=== PATIENT | female | born 1995 | race Caucasian/White ===

== ENCOUNTER 2018-09-11 10:02 | Emergency (ER) | payer OTHER ==
[~2018-09-11] VITALS: Ht 170.2 cm; Wt 81.6 kg
--- OUTSIDE RECORDS SUMMARY | 2018-09-11 10:08 | XMS REPORT ---
Author Author Jessica Chakraborty [facility] Address [address], [place] [id number] Care Team Providers Care Harbor Tug Captain Name Role Phone Jessica Chakraborty PCP Allergies and Adverse Reactions Name Reaction Notes Zithromax hives Plan of Treatment Not available. Medications Active Name Start Date Estimated Completion Date SIG Comments Forfivo XL 450 mg oral tablet extended release 24 hr 04/08/2016 TAKE 1 TABLET BY MOUTH DAILY Forfivo XL 450 mg oral tablet extended release 24 hr 09/21/2016 TAKE 1 TABLET BY MOUTH DAILY lamotrigine 100 mg oral tablet 10/15/2016 TAKE 1 TABLET BY ORAL ROUTE DAILY FOR 90 DAYS Previfem 0.25-35 mg-mcg oral tablet 12/03/2017 TAKE 1 TABLET BY MOUTH DAILY for 84 days fluoxetine 60 mg oral tablet take 1 tablet (60 mg) by oral route once daily in the morning Name Start Date Expiration Date SIG Comments Zofran ODT 4 mg oral tablet,disintegrating 02/06/2013 dissolve 1-2 tablets by oral route 3 times a day as needed amoxicillin 875 mg oral tablet 01/25/2015 02/04/2015 take 1 tablet (875 mg) by oral route every 12 hours for 10 days Macrobid 100 mg oral capsule 06/24/2015 07/01/2015 take 1 capsule (100 mg) by oral route 2 times per day with food for 7 days Forfivo XL 450 mg oral tablet extended release 24 hr 10/15/2015 04/12/2016 take 1 tablet (450 mg) by oral route once daily swallowing whole. Do not crush, chew and/or divide. for 90 days lamotrigine 25 mg oral tablet 11/06/2015 01/05/2016 take 3 tablets by oral route daily for 30 days sertraline 100 mg oral tablet 12/02/2015 05/30/2016 take 2 tablets by oral route daily for 90 days lamotrigine 100 mg oral tablet 04/10/2016 07/09/2016 TAKE 1 TABLET BY ORAL ROUTE DAILY FOR 90 DAYS for 90 days Discontinued Name Start Date Discontinued Date SIG Comments Lessina 0.1-20 mg-mcg oral tablet 06/24/2015 take 1 tablet by oral route once daily bupropion HCl 300 mg oral tablet extended release 24 hr 06/24/2015 take 1 tablet by oral route daily fluticasone 50 mcg/actuation nasal spray,suspension 01/25/2015 06/24/2015 inhale 1 spray (50 mcg) in each nostril by intranasal route 2 times per day Diflucan 150 mg oral tablet 02/06/2015 06/24/2015 take 1 tablet (150 mg) by oral route once cyclobenzaprine 10 mg oral tablet 08/12/2015 08/26/2015 take 1 tablet by oral route once a day (at bedtime) pt decicded to stop taking Anaprox DS 550 mg oral tablet 08/12/2015 08/26/2015 take 1 tablet (550 mg) by oral route 2 times per day in the morning and evening with food pt decided to stop taking omeprazole 40 mg oral capsule,delayed release(DR/EC) 04/30/2016 05/15/2016 take 1 capsule (40 mg) by oral route once daily before a meal "forgot to try" omeprazole 40 mg oral capsule,delayed release(DR/EC) 05/25/2016 09/08/2016 TAKE 1 CAPSULE EVERY DAY BEFORE A MEAL sertraline 100 mg oral tablet 06/22/2016 07/22/2018 TAKE 2 TABLETS BY ORAL ROUTE DAILY FOR 90 DAYS lamotrigine 25 mg oral tablet 10/15/2016 07/22/2018 TAKE THREE(3)TABLETS EVERY DAY Diflucan 150 mg oral tablet 01/27/2017 12/03/2017 take 1 tablet (150 mg) by oral route once Problem List Description Status Onset Depression Active Migraine Active Chronic tension-type headache, not intractable Active 05/15/2016 Myofascial pain Active 05/28/2016 Vital Signs Date Time BP-Sys(mm[Hg] BP-Luba(mm[Hg]) HR(bpm) RR(rpm) Temp WT HT HC BMI BSA BMI Percentile O2 Sat(%) 07/22/2018 10:40:00 AM 143 mmHg 92 mmHg 76 bpm 98.2 F 179.25 lbs 69 in 26.4703 kg/m 1.9895 m 12/03/2017 11:08:00 AM 129 mmHg 82 mmHg 81 bpm 98.6 F 166 lbs 69 in 24.51 kg/m2 1.91 m2 10/13/2016 3:54:00 PM 136 mmHg 89 mmHg 103 bpm 19 rpm 98.2 F 148.025 lbs 69 in 21.8592 kg/m 1.808 m 51.9 % 99 % 09/08/2016 4:56:00 PM 118 mmHg 78 mmHg 81 bpm 20 rpm 97.8 F 147 lbs 69 in 21.71 kg/m2 1.80 m2 50.3 % 98 % 05/27/2016 4:25:00 PM 102 mmHg 58 mmHg 107 bpm 14 rpm 98.1 F 147.5 lbs 69 in 21.7817 kg/m 1.8048 m 51.8 % 97 % 05/15/2016 10:53:00 AM 110 mmHg 60 mmHg 91 bpm 20 rpm 97.3 F 147.5 lbs 69 in 21.78 kg/m2 1.80 m2 51.9 % 98 % 04/30/2016 1:09:00 PM 102 mmHg 58 mmHg 89 bpm 12 rpm 97 F 149 lbs 69 in 22.0032 kg/m 1.8139 m 54.6 % 99 % 11/06/2015 5:25:00 PM 112 mmHg 68 mmHg 81 bpm 14 rpm 98.1 F 145 lbs 69 in 21.41 kg/m2 1.79 m2 48.7 % 99 % 10/23/2015 4:33:00 PM 120 mmHg 84 mmHg 108 bpm 18 rpm 98.1 F 143 lbs 68.5 in 21.4266 kg/m 1.7706 m 49 % 98 % 08/26/2015 4:34:00 PM 110 mmHg 70 mmHg 93 bpm 16 rpm 97.7 F 142 lbs 68.5 in 21.28 kg/m2 1.76 m2 47.6 % 98 % 08/12/2015 3:05:00 PM 116 mmHg 68 mmHg 105 bpm 20 rpm 98.5 F 144 lbs 100 % 08/09/2015 3:15:00 PM 115 mmHg 70 mmHg 84 bpm 18 rpm 98.2 F 140 lbs 67 in 21.93 kg/m2 1.73 m2 55.7 % 99 % 07/10/2015 2:37:00 PM 132 mmHg 70 mmHg 78 bpm 16 rpm 97.1 F 143 lbs 66 in 23.0806 kg/m 1.738 m 67.7 % 100 % 06/24/2015 4:11:00 PM 137 mmHg 86 mmHg 88 bpm 18 rpm 98.4 F 143 lbs 71 in 19.94 kg/m2 1.80 m2 29.9 % 01/25/2015 9:04:00 AM 102 mmHg 60 mmHg 79 bpm 18 rpm 97.9 F 149 lbs 71 in 20.7811 kg/m 1.84 m 43.2 % 99 % 02/06/2013 2:10:00 PM 116 mmHg 78 mmHg 134 bpm 18 rpm 98.4 F 149 lbs 71 in 20.78 kg/m2 1.84 m2 53.6 % 98 % 03/24/2011 11:07:00 AM 118 mmHg 62 mmHg 76 bpm 22 rpm 97.8 F 143 lbs 67 in 22.3967 kg/m 1.7511 m 78.9 % 98 % Social History Name Description Comments Student (High school ) Tobacco Never smoker History of Procedures Date Ordered Description Order Status 07/10/2015 12:00 AM Mental Health Consult Reviewed 08/09/2015 12:00 AM METABOLIC PANEL TOTAL CA Reviewed 08/15/2015 12:00 AM ROUTINE VENIPUNCTURE Reviewed 10/23/2015 12:00 AM AMINO ACIDS SINGLE QUANT Reviewed 10/23/2015 12:00 AM COMPLETE CBC W/AUTO DIFF WBC Reviewed 10/23/2015 12:00 AM VITAMIN D 25 HYDROXY Reviewed 05/15/2016 12:00 AM COMPLETE CBC W/AUTO DIFF WBC Reviewed 05/15/2016 12:00 AM COMPREHEN METABOLIC PANEL Reviewed 05/15/2016 12:00 AM ECHO EXAM OF ABDOMEN Reviewed 05/28/2016 12:00 AM HEPATOBILIARY SYSTEM IMAGING Reviewed 10/13/2016 12:00 AM SPECIMEN HANDLING OFFICE-LAB Reviewed 10/13/2016 12:00 AM CHLAMYDIA CULTURE Reviewed 10/13/2016 12:00 AM N.GONORRHOEAE DNA AMP PROB Reviewed 12/03/2017 12:00 AM SPECIMEN HANDLING OFFICE-LAB Reviewed 12/03/2017 12:00 AM CHLAMYDIA CULTURE Reviewed 12/03/2017 12:00 AM N.GONORRHOEAE DNA AMP PROB Reviewed 12/03/2017 12:00 AM DETECT AGENT NOS DNA AMP Reviewed 12/03/2017 12:00 AM TRICHOMONAS VAGINALIS AMPLIF Reviewed 09/29/2010 12:00 AM IMMUNIZATION ADMIN Reviewed 09/29/2010 12:00 AM FLU VACCINE 3 YRS & > IM Reviewed 04/11/2015 12:00 AM IMMUNIZATION ADMIN Reviewed 04/11/2015 12:00 AM HPV VACCINE 4 VALENT IM Reviewed 06/24/2015 5:12 PM URINE TEST Reviewed 06/24/2015 12:00 AM SPECIMEN HANDLING OFFICE-LAB Reviewed 06/24/2015 12:00 AM CHLAMYDIA CULTURE Reviewed 06/24/2015 12:00 AM N.GONORRHOEAE DNA AMP PROB Reviewed 06/24/2015 12:00 AM TRICHOMONAS ASSAY W/OPTIC Reviewed Results Summary Date and Description Results 06/24/2015 5:12 PM Test, Urine Negative 08/15/2015 2:43 PM GLUCOSE 87.0 mg/dLSODIUM 139.0 mmol/LPOTASSIUM 4.20 mmol/ LCHLORIDE 104.0 mmol/LCO2 24.0 mmol/LBUN 13.0 mg/dLCREATININE 1.0 mg/dLSGOT/AST 19.0 IU/LSGPT/ALT 14.0 IU/LALK PHOS 68.0 IU/LTOTAL PROTEIN 6.80 g/dLALBUMIN 4.10 g/dLTOTAL BILI 0.40 mg/dLCALCIUM 9.90 mg/dLAGE 19 GFR NonAA 72 GFR AA 87 eGFR >60 mL/min/1.73meGFR AA* >60 10/23/2015 6:42 PM WBC 8.3 RBC 4.79 HGB 14.70 g/dLHCT 43.30 %MCV 90.0 fLMCH 30.70 pgMCHC 33.90 g/dLRDW SD 41 RDW CV 12.30 %MPV 9.60 fLPLT 309 NRBC# 0.00 NRBC% 0.0 %NEUT 61.80 %%LYMP 27.50 %%MONO 10.10 %%EOS 0.40 %%BASO 0.20 %#NEUT 5.16 #LYMP 2.29 #MONO 0.84 #EOS 0.03 #BASO 0.02 MANUAL DIFF NOT IND TSH 1.550 uIU/mLVITAMIN D 58.80 ng/mL 05/15/2016 2:22 PM GLUCOSE 79.0 mg/dLSODIUM 135.0 mmol/LPOTASSIUM 4.60 mmol/ LCHLORIDE 103.0 mmol/LCO2 20.0 mmol/LBUN 16.0 mg/dLCREATININE 0.90 mg/dLSGOT/ AST 34.0 IU/LSGPT/ALT 33.0 IU/LALK PHOS 86.0 IU/LTOTAL PROTEIN 7.20 g/dLALBUMIN 4.30 g/dLTOTAL BILI 0.50 mg/dLCALCIUM 9.60 mg/dLAGE 20 GFR NonAA 81 GFR AA 98 eGFR >60 mL/min/1.73meGFR AA* >60 WBC 7.5 RBC 4.85 HGB 14.50 g/dLHCT 43.40 % MCV 90.0 fLMCH 29.90 pgMCHC 33.40 g/dLRDW SD 41 RDW CV 12.60 %MPV 9.20 fLPLT 290 NRBC# 0.00 NRBC% 0.0 %NEUT 62.40 %%LYMP 24.90 %%MONO 10.50 %%EOS 1.30 %% BASO 0.80 %#NEUT 4.65 #LYMP 1.86 #MONO 0.78 #EOS 0.10 #BASO 0.06 MANUAL DIFF NOT IND History Of Immunizations Name Date Admin Mfg Name Mfg Code Trade Name Lot# Route Inj Vis Given Vis Pub CVX HPV 04/11/2015 [employer] MSD GARDASIL [id number] Intramuscular Left Deltoid 04/12/2015 03/10/2013 63 History of Past Illness Name Date of Onset Comments Depression Migraine Flu Sep 29 2010 5:16PM Chronic tension-type headache, not intractable 05/15/2016 Stretching,heat and massageNTB, avoid gum chewing, hard candy for the TMJReturn for TPIsShe may benefit from ADDISON block in the future. Myofascial pain 05/28/2016 Sports Physical Mar 24 2011 11:13AM Gastroenteritis Feb 06 2013 2:15PM Depression Jan 25 2015 9:10AM Migraine Jan 25 2015 9:10AM Upper respiratory infection Jan 25 2015 9:10AM Gardsil (HPV) Apr 11 2015 1:10PM Routine gynecological examination Jun 24 2015 4:16PM Contraception, Oral Prescription Jun 24 2015 4:16PM Contraception, Surveillance Jun 24 2015 4:16PM Vaginal Discharge Jun 24 2015 4:16PM Dysuria Jun 24 2015 4:16PM Depression Jul 10 2015 2:39PM Depression Aug 09 2015 3:21PM Left TMJ inflammation Aug 12 2015 3:07PM Adolescent depression Aug 15 2015 10:50AM Depressive Disorder Worsening Aug 26 2015 4:38PM Chronic fatigue Oct 23 2015 4:36PM Depression Oct 23 2015 4:36PM Reflux gastritis Oct 23 2015 4:36PM Chronic Depressive Disorder Nov 06 2015 5:29PM Chronic fatigue Nov 06 2015 5:29PM Generalized abdominal pain Apr 30 2016 1:11PM Generalized abdominal pain May 15 2016 10:55AM Chronic tension-type headache, not intractable May 15 2016 10:55AM Myofascial pain May 27 2016 4:24PM Abdominal pain, unspecified abdominal location May 28 2016 11:43AM Severe episode of recurrent major depressive disorder, without psychotic features Sep 08 2016 4:58PM Routine gynecological examination Oct 13 2016 3:56PM Contraceptive surveillance Oct 13 2016 3:56PM Routine gynecological examination Dec 03 2017 11:11AM Contraceptive management Dec 03 2017 11:11AM Contraceptive education Jul 22 2018 10:41AM Payers Insurance Name Company Name Plan Name Plan Number Policy Number Policy Group Number Start Date Aetna Aetna [id number] Friday, 2015 [facility] [id number] [facility] void October2008 [facility] [id number] [facility] void October2008 [facility] [id number] [facility] void Wednesday, 2010 History of Encounters Visit Date Visit Type Provider 07/22/2018 Office visit Jessica Chakraborty GSA COORDINATOR 12/03/2017 Office visit Jessica Chakraborty GSA COORDINATOR 10/13/2016 Office visit Jessica Chakraborty GSA COORDINATOR 09/08/[address] Douglas Huang MD 05/27/2016 Office visit Rupal SHOOK 05/15/2016 Office visit Rupal SHOOK 04/30/2016 Office visit Rupal SHOOK 11/06/[address] Douglas Huang MD 10/23/[address] Douglas Huang MD 08/26/[address] Douglas Huang MD 08/15/2015 Laboratory FIDEL TURNER GSA COORDINATOR 08/12/2015 Office visit FIDEL TURNER GSA COORDINATOR 08/09/[address] Douglas Huang MD 08/09/[address] Douglas Huang MD 07/10/2015 Office visit FIDEL TURNER GSA COORDINATOR 06/24/2015 Office visit 06/24/2015 Office visit Jessica Chakraborty GSA COORDINATOR 04/11/2015 Nurse visit FIDEL TURNER GSA COORDINATOR 01/25/2015 Office visit FIDEL TURNER GSA COORDINATOR 02/06/2013 Office visit FIDEL TURNER GSA COORDINATOR 03/24/2011 Office visit Fidel Turner GSA COORDINATOR 09/29/2010 Nurse visit Fidel Turner GSA COORDINATOR 08/20/2009 Office visit Fidel Turner GSA COORDINATOR
--- OUTSIDE RECORDS SUMMARY | 2018-09-11 10:08 | XMS REPORT ---
Author Author Jessica Chakraborty [facility] Address [address] [place], [place] [id number] Care Team Providers Care Wildfire Prevention Specialist Name Role Phone Jessica Chakraborty PCP Allergies [...] 04/11/2015 [employer] MSD GARDASIL [id number] Intramuscular Left Deltoid 04/12/2015 03/10/2013 63 History [...] Policy Group Number Start Date Aetna Aetna [id number] Friday, 2015 [place] [address] [place] void October2008 [place] [id number] [place] void October2008 [place] [address] [place] void Wednesday, 2010 History of Encounters Visit Date Visit Type Provider 07/22/2018 Office visit Jessica Chakraborty [facility] 12/03/2017 Office visit Jesscia Chakraborty [facility] 10/13/2016 Office visit Jessica Chakraborty [facility] 09/08/[address] Douglas Huang MD 05/27/2016 Office visit Rupal SHOOK 05/15/2016 Office visit Rupal SHOOK 04/30/2016 Office visit Rupal SHOOK 11/06/[address] Douglas Huang MD 10/23/[address] Douglas Huang MD 08/26/[address] Douglas Huang MD 08/15/2015 Laboratory FIDEL TURNER [facility] 08/12/2015 Office visit FIDEL TURNER [facility] 08/09/[address] Douglas Huang MD 08/09/[address] Douglas Huang MD 07/10/2015 Office visit FIDEL TURNER [facility] 06/24/2015 Office visit 06/24/2015 Office visit Jessica Chakraborty [facility] 04/11/2015 Nurse visit FIDEL TURNER [facility] 01/25/2015 Office visit FIDEL TURNER [facility] 02/06/2013 Office visit FIDEL TURNER [facility] 03/24/2011 Office visit Fidel Turner [facility] 09/29/2010 Nurse visit Fidel Turner [facility] 08/20/2009 Office visit Fidel Turner [facility]
--- OUTSIDE RECORDS SUMMARY | 2018-09-11 10:09 | XMS REPORT ---
Author Douglas Gloria [facility] Address [address] [place], [place] [id number] Care Team Providers Care Functional Mental Disability Teacher Name Role Phone Douglas Huang PCP Allergies and Adverse Reactions Name Reaction Notes Zithromax hives Plan of Treatment Planned Activity Comments Planned Date Planned Time Plan/Goal METABOLIC PANEL TOTAL CA 08/09/2015 12:00 AM Medications Active Name Start Date Estimated Completion Date SIG Comments Previfem 0.25-35 mg-mcg oral tablet 06/24/2015 05/25/2016 take 1 tablet by oral route once daily for 28 days Forfivo XL 450 mg oral tablet extended release 24 hr 07/11/2015 take 1 tablet (450 mg) by oral route once daily swallowing whole. Do not crush, chew and/or divide. lamotrigine 100 mg oral tablet 07/11/2015 take 1 tablet by oral route daily sertraline 100 mg oral tablet 08/09/2015 11/07/2015 take 1.5 tablets (150 mg ) by oral route once daily for 90 days Name Start Date Expiration Date SIG Comments [...] per day with food for 7 days Discontinued Name Start Date Discontinued Date [...] Description Status Onset Depression Active Migraine Active Vital Signs Date Time BP-Sys(mm[Hg] BP-Luba(mm[Hg]) HR(bpm) RR(rpm) Temp WT HT HC BMI BSA BMI Percentile O2 Sat(%) 08/09/2015 3:15:00 PM 115 mmHg 70 mmHg [...] of Procedures Date Ordered Description Order Status 09/29/2010 12:00 AM IMMUNIZATION ADMIN Reviewed 09/29/2010 12:00 AM FLU VACCINE 3 YRS & > IM Reviewed 04/11/2015 12:00 AM IMMUNIZATION ADMIN Reviewed 04/11/2015 12:00 AM HPV VACCINE 4 VALENT IM Reviewed 06/24/2015 5:12 PM URINE TEST Reviewed 06/24/2015 12:00 AM SPECIMEN HANDLING OFFICE-LAB Reviewed 06/24/2015 12:00 AM CHLAMYDIA CULTURE Returned 06/24/2015 12:00 AM N.GONORRHOEAE DNA AMP PROB Returned 06/24/2015 12:00 AM TRICHOMONAS ASSAY W/OPTIC Returned Results Summary Data and Description Results 06/24/2015 5:12 PM Test, Urine Negative History Of Immunizations Name Date Admin Mfg Name Mfg Code Trade Name Lot# Route Inj Vis Given Vis Pub CVX HPV 04/11/2015 [employer] MSD GARDASIL [id number] Intramuscular Left Deltoid 04/12/2015 03/10/2013 63 History of Past Illness Name Date of Onset Comments Depression Migraine Flu Sep 29 2010 5:16PM Sports Physical Mar 24 2011 11:13AM Gastroenteritis [...] 2015 2:39PM Depression Aug 09 2015 3:21PM Payers Insurance Name Company Name Plan Name Plan Number Policy Number Policy Group Number Start Date Aetna Aetna [id number] Friday, 2015 [facility] void October [facility] void October [facility] void Monday, 2010 History of Encounters Visit Date Visit Type Provider 08/09/[address] Douglas Huang MD 08/09/[address] Douglas Huang MD 07/10/2015 Office visit FIDEL TURNER ACTUARY CLERK 06/24/2015 Office visit Jessica Chakraborty ACTUARY CLERK 04/11/2015 Nurse visit FIDEL TURNER ACTUARY CLERK 01/25/2015 Office visit FIDEL TURNER ACTUARY CLERK 02/06/2013 Office visit FIDEL TURNER ACTUARY CLERK 03/24/2011 Office visit Fidel Turner ACTUARY CLERK 09/29/2010 Nurse visit Fidel Turner ACTUARY CLERK 08/20/2009 Office visit Fidel Turner ACTUARY CLERK
--- OUTSIDE RECORDS SUMMARY | 2018-09-11 10:09 | XMS REPORT ---
Author Author Jessica Chakraborty [facility] Address [address] [place], [place] [address] Care Team Providers Care Rivet Hammer Machine Operator Name Role Phone Jessica Chakraborty PCP Unavailable Allergies and Adverse Reactions Name Reaction Notes Zithromax hives Plan of Treatment Planned Activity Comments Planned Date Planned Time Plan/Goal CHLAMYDIA CULTURE 06/24/2015 12:00 AM N.GONORRHOEAE DNA AMP PROB 06/24/2015 12:00 AM TRICHOMONAS ASSAY W/OPTIC 06/24/2015 12:00 AM Medications Active Name Start Date Estimated Completion Date SIG Comments sertraline 50 mg oral tablet take 1 tablet (50 mg) by oral route once daily lamotrigine 100 mg oral tablet Forfivo XL 450 mg oral tablet extended release 24 hr take 1 tablet (450 mg) by oral route once daily swallowing whole. Do not crush, chew and/or divide. Macrobid 100 mg oral capsule 06/24/2015 07/01/2015 take 1 capsule (100 mg) by oral route 2 times per day with food for 7 days Previfem 0.25-35 mg-mcg oral tablet 06/24/2015 05/25/2016 take 1 tablet by oral route once daily for 28 days Name Start Date Expiration Date SIG Comments Zofran ODT 4 mg oral tablet,disintegrating 02/06/2013 dissolve 1-2 tablets by oral route 3 times a day as needed amoxicillin 875 mg oral tablet 01/25/2015 02/04/2015 take 1 tablet (875 mg) by oral route every 12 hours for 10 days Discontinued Name Start Date Discontinued Date [...] HC BMI BSA BMI Percentile O2 Sat(%) 06/24/2015 4:11:00 PM 137 mmHg 86 mmHg [...] Reviewed 06/24/2015 5:12 PM URINE TEST Reviewed Results Summary Data and Description Results 06/24/2015 5:12 PM Test, Urine Negative History Of Immunizations Name Date Admin Mfg Name Mfg Code Trade Name Lot# Route Inj Vis Given Vis Pub CVX HPV 04/11/2015 [employer] MSD GARDASIL [id number] Intramuscular Left Deltoid 04/12/2015 03/10/2013 63 History [...] 2015 4:16PM Dysuria Jun 24 2015 4:16PM Payers Insurance Name Company Name Plan Name Plan Number Policy Number Policy Group Number Start Date Aetna Aetna [id number] Friday, 2015 [facility] void October [facility] void October [facility] void Monday, 2010 History of Encounters Visit Date Visit Type Provider 06/24/2015 Office visit Jessica Chakraborty EDGE KITTER 04/11/2015 Nurse visit FIDEL ENCARNACION EDGE KITTER 01/25/2015 Office visit FIDEL ENCARNACION EDGE KITTER 02/06/2013 Office visit FIDEL ENCARNACION EDGE KITTER 03/24/2011 Office visit Fidel Encarnacion EDGE KITTER 09/29/2010 Nurse visit Fidel Encarnacion EDGE KITTER 08/20/2009 Office visit Fidel Encarnacion EDGE KITTER
--- OUTSIDE RECORDS SUMMARY | 2018-09-11 10:09 | XMS REPORT ---
Author Author FIDEL TURNER [facility] Address [address] [place], [place] [id number] Care Team Providers Care Head Grinder Name Role Phone FIDEL TURNER PCP Unavailable Allergies and Adverse Reactions Name [...] route daily sertraline 100 mg oral tablet 07/11/2015 take 2 tablets (200 mg) by oral route once daily Name Start Date Expiration Date SIG Comments [...] HC BMI BSA BMI Percentile O2 Sat(%) 07/10/2015 2:37:00 PM 132 mmHg 70 mmHg 78 bpm 16 rpm 97.1 F 143 lbs 66 in 23.08 kg/m2 1.74 m2 67.7 % 100 % 06/24/2015 4:11:00 PM 137 mmHg 86 mmHg 88 bpm 18 rpm 98.4 F 143 lbs 71 in 19.9442 kg/m 1.8026 m 29.9 % 01/25/2015 9:04:00 AM 102 mmHg 60 mmHg 79 bpm 18 rpm 97.9 F 149 lbs 71 in 20.78 kg/m2 1.84 m2 43.2 % 99 % 02/06/2013 2:10:00 PM 116 mmHg 78 mmHg 134 bpm 18 rpm 98.4 F 149 lbs 71 in 20.7811 kg/m 1.84 m 53.6 % 98 % 03/24/2011 11:07:00 AM 118 mmHg 62 mmHg 76 bpm 22 rpm 97.8 F 143 lbs 67 in 22.40 kg/m2 1.75 m2 78.9 % 98 % Social History Name [...] 04/11/2015 [employer] MSD GARDASIL [id number] Intramuscular Left Deltoid 04/12/2015 03/10/2013 63 History [...] 2015 4:16PM Depression Jul 10 2015 2:39PM Payers Insurance Name Company Name Plan Name Plan Number Policy Number Policy Group Number Start Date Aetna Aetna [id number] Friday, 2015 [facility] void October [facility] void October [facility] void Monday, 2010 History of Encounters Visit Date Visit Type Provider 07/10/2015 Office visit FIDEL TURNER MULTIPLE EFFECT EVAPORATOR OPERATOR 06/24/2015 Office visit Jessica Chakraborty MULTIPLE EFFECT EVAPORATOR OPERATOR 04/11/2015 Nurse visit FIDEL TURNER MULTIPLE EFFECT EVAPORATOR OPERATOR 01/25/2015 Office visit FIDEL TURNER MULTIPLE EFFECT EVAPORATOR OPERATOR 02/06/2013 Office visit FIDEL TURNER MULTIPLE EFFECT EVAPORATOR OPERATOR 03/24/2011 Office visit Fidel Turner MULTIPLE EFFECT EVAPORATOR OPERATOR 09/29/2010 Nurse visit Fidel Turner MULTIPLE EFFECT EVAPORATOR OPERATOR 08/20/2009 Office visit Fidel Turner MULTIPLE EFFECT EVAPORATOR OPERATOR
--- OUTSIDE RECORDS SUMMARY | 2018-09-11 10:09 | XMS REPORT ---
Author Author Rupal Michel [facility] Address [address] [place], [place] [id number] Care Team Providers Care Cartoonist Special Effects Name Role Phone Rupal Michel PCP Allergies and Adverse Reactions Name Reaction Notes Zithromax hives Plan of Treatment Planned Activity Comments Planned Date Planned Time Plan/Goal HEPATOBILIARY SYSTEM IMAGING 05/28/2016 12:00 AM Medications Active Name Start Date Estimated Completion Date SIG Comments Previfem 0.25-35 mg-mcg oral tablet 09/17/2015 08/18/2016 take 1 tablet by oral route once daily for 84 days sertraline 100 mg oral tablet 12/02/2015 05/30/2016 take 2 tablets by oral route daily for 90 days Forfivo XL 450 mg oral tablet extended release 24 hr 04/08/2016 TAKE 1 TABLET BY MOUTH DAILY lamotrigine 100 mg oral tablet 04/10/2016 07/09/2016 TAKE 1 TABLET BY ORAL ROUTE DAILY FOR 90 DAYS for 90 days omeprazole 40 mg oral capsule,delayed release(DR/EC) 05/25/2016 TAKE 1 CAPSULE EVERY DAY BEFORE A MEAL Name Start Date Expiration Date SIG Comments [...] by oral route daily for 30 days Discontinued Name Start Date Discontinued Date SIG Comments Lessina 0.1-20 mg-mcg oral tablet 06/24/2015 take 1 tablet by oral route once daily bupropion HCl 300 mg oral tablet extended release 24 hr 06/24/2015 take 1 tablet by oral route daily fluticasone 50 mcg/actuation nasal spray,suspension 01/25/2015 06/24/2015 inhale 1 spray (50 mcg) in each nostril by intranasal route 2 times per day fluticasone 50 mcg/actuation nasal spray,suspension 01/25/2015 06/24/2015 [...] oral route once daily before a meal omeprazole 40 mg oral capsule,delayed release(DR/EC) 04/30/2016 05/15/2016 take 1 capsule (40 mg) by oral route once daily before a meal "forgot to try" Problem List Description Status Onset Depression Active Migraine Active Chronic tension-type headache, not intractable Active 05/15/2016 Myofascial pain Active 05/28/2016 Vital Signs Date Time BP-Sys(mm[Hg] BP-Luba(mm[Hg]) HR(bpm) RR(rpm) Temp WT HT HC BMI BSA BMI Percentile O2 Sat(%) 05/27/2016 4:25:00 PM 102 mmHg 58 mmHg 107 bpm 14 rpm 98.1 F 147.5 lbs 69 in 21.78 kg/m2 1.80 m2 51.8 % 97 % 05/15/2016 10:53:00 AM 110 mmHg 60 mmHg 91 bpm 20 rpm 97.3 F 147.5 lbs 69 in 21.7817 kg/m 1.8048 m 51.9 % 98 % 04/30/2016 1:09:00 PM 102 mmHg 58 mmHg 89 bpm 12 rpm 97 F 149 lbs 69 in 22.00 kg/m2 1.81 m2 54.6 % 99 % 11/06/2015 5:25:00 PM 112 mmHg 68 mmHg 81 bpm 14 rpm 98.1 F 145 lbs 69 in 21.4125 kg/m 1.7894 m 48.7 % 99 % 10/23/2015 4:33:00 PM 120 mmHg 84 mmHg 108 bpm 18 rpm 98.1 F 143 lbs 68.5 in 21.43 kg/m2 1.77 m2 49 % 98 % 08/26/2015 4:34:00 PM 110 mmHg 70 mmHg 93 bpm 16 rpm 97.7 F 142 lbs 68.5 in 21.2768 kg/m 1.7644 m 47.6 % 98 % 08/12/2015 3:05:00 PM 116 mmHg 68 mmHg 105 bpm 20 rpm 98.5 F 144 lbs 100 % 08/09/2015 3:15:00 PM 115 mmHg 70 mmHg 84 bpm 18 rpm 98.2 F 140 lbs 67 in 21.9269 kg/m 1.7326 m 55.7 % 99 % 07/10/2015 2:37:00 PM [...] 08/09/2015 12:00 AM METABOLIC PANEL TOTAL CA Returned 08/15/2015 12:00 AM ROUTINE VENIPUNCTURE Reviewed 10/23/2015 12:00 AM AMINO ACIDS SINGLE QUANT Returned 10/23/2015 12:00 AM COMPLETE CBC W/AUTO DIFF WBC Returned 10/23/2015 12:00 AM VITAMIN D 25 HYDROXY Returned 05/15/2016 12:00 AM COMPLETE CBC W/AUTO DIFF WBC Returned 05/15/2016 12:00 AM COMPREHEN METABOLIC PANEL Returned 05/15/2016 12:00 AM ECHO EXAM OF ABDOMEN Returned 09/29/2010 12:00 AM IMMUNIZATION ADMIN Reviewed 09/29/2010 [...] g/dLALBUMIN 4.10 g/dLTOTAL BILI 0.40 mg/dLCALCIUM 9.90 mg/dLeGFR >60 mL/min/1.73m 10/23/2015 6:42 PM WBC 8.3 RBC 4.79 HGB 14.70 g/dLHCT 43.30 %MCV 90.0 fLMCH 30.70 pgMCHC 33.90 g/dLRDW CV 12.30 %MPV 9.60 fLPLT 309 %NEUT 61.80 %%LYMP 27.50 %%MONO 10.10 %%EOS 0.40 %%BASO 0.20 %#NEUT 5.16 #LYMP 2.29 #MONO 0.84 # EOS 0.03 #BASO 0.02 TSH 1.550 uIU/mLVITAMIN D 58.80 ng/mL 05/15/2016 2:22 PM GLUCOSE 79.0 mg/dLSODIUM 135.0 mmol/LPOTASSIUM 4.60 mmol/ LCHLORIDE 103.0 mmol/LCO2 20.0 mmol/LBUN 16.0 mg/dLCREATININE 0.90 mg/dLSGOT/ AST 34.0 IU/LSGPT/ALT 33.0 IU/LALK PHOS 86.0 IU/LTOTAL PROTEIN 7.20 g/dLALBUMIN 4.30 g/dLTOTAL BILI 0.50 mg/dLCALCIUM 9.60 mg/dLeGFR >60 mL/min/1.73mWBC 7.5 RBC 4.85 HGB 14.50 g/dLHCT 43.40 %MCV 90.0 fLMCH 29.90 pgMCHC 33.40 g/dLRDW CV 12.60 %MPV 9.20 fLPLT 290 %NEUT 62.40 %%LYMP 24.90 %%MONO 10.50 %%EOS 1.30 %% BASO 0.80 %#NEUT 4.65 #LYMP 1.86 #MONO 0.78 #EOS 0.10 #BASO 0.06 History Of Immunizations Name Date Admin [facility] [place] [facility] Code Trade Name Lot# Route Inj Vis Given Vis Pub CVX HPV 04/11/2015 [employer] MSD GARDASIL [id number] Intramuscular Left Deltoid 04/12/2015 03/10/2013 63 History [...] unspecified abdominal location May 28 2016 11:43AM Payers Insurance Name Company Name Plan Name Plan Number Policy Number Policy Group Number Start Date Aetna Aetna [id number] Friday, 2015 [facility] void Monday, 2010 History of Encounters Visit Date Visit Type Provider 05/27/2016 Office visit Rupal SHOOK 05/15/2016 Office visit Rupal SHOOK 04/30/2016 Office visit Rupal SHOOK 11/06/[address] Douglas Huang MD 10/23/[address] Douglas Huang MD 08/26/[address] Douglas Huang MD 08/15/2015 Laboratory FIDEL TURNER CAREER COUNSELOR 08/12/2015 Office visit FIDEL TURNER CAREER COUNSELOR 08/09/[address] Douglas Huang MD 08/09/[address] Douglas Huang MD 07/10/2015 Office visit FIDEL TURNER APRN 06/24/2015 Office visit 06/24/2015 Office visit Jessica Chakraborty CAREER COUNSELOR 04/11/2015 Nurse visit FIDEL TURNER CAREER COUNSELOR 01/25/2015 Office visit FIDEL TURNER CAREER COUNSELOR 02/06/2013 Office visit FIDEL TURNER CAREER COUNSELOR 03/24/2011 Office visit Fidel Turner CAREER COUNSELOR 09/29/2010 Nurse visit Fidel Turner CAREER COUNSELOR 08/20/2009 Office visit Fidel Turner CAREER COUNSELOR
--- OUTSIDE RECORDS SUMMARY | 2018-09-11 10:10 | XMS REPORT ---
Author Douglas Gloria [facility] Address [address] [place], [place] [address] Care Team Providers Care Audio Tape Librarian Name Role Phone Douglas Huang PCP Allergies [...] with food pt decided to stop taking Problem List Description Status Onset Depression Active Migraine Active Vital Signs Date Time BP-Sys(mm[Hg] BP-Luba(mm[Hg]) HR(bpm) RR(rpm) Temp WT HT HC BMI BSA BMI Percentile O2 Sat(%) 08/26/2015 4:34:00 PM 110 mmHg 70 mmHg [...] 149 lbs 71 in 20.78 kg/m2 1.84 m 43.2 % 99 % 02/06/2013 2:10:00 PM 116 mmHg 78 mmHg 134 bpm 18 rpm 98.4 F 149 lbs 71 in 20.7811 kg/m 1.84 m2 53.6 % 98 % 03/24/2011 11:07:00 AM 118 mmHg 62 mmHg 76 bpm 22 rpm 97.8 F 143 lbs 67 in 22.40 kg/m2 1.7511 m 78.9 % 98 % Social History Name Description Comments Student (High school ) Tobacco Never smoker History of Procedures Date Ordered Description Order Status 08/09/2015 12:00 AM METABOLIC PANEL TOTAL CA Returned 09/29/2010 12:00 AM IMMUNIZATION ADMIN Reviewed [...] BILI 0.40 mg/dLCALCIUM 9.90 mg/dLeGFR >60 mL/min/1.73m History Of Immunizations Name Date Admin Mfg Name Mfg Code Trade Name Lot# Route Inj Vis Given Vis Pub CVX HPV 04/11/2015 [employer] MSD GARDASIL [id number] Intramuscular Left Deltoid 04/12/2015 03/10/2013 63 History [...] Depressive Disorder Worsening Aug 26 2015 4:38PM Payers Insurance Name Company Name Plan Name Plan Number Policy Number Policy Group Number Start Date Aetna Aetna [id number] Friday, 2015 [facility] void Monday, 2010 History of Encounters Visit Date Visit Type Provider 08/26/[address] Douglas Huang MD 08/15/2015 Laboratory FIDEL TURNER SALES PROMOTION MANAGER 08/12/2015 Office visit FIDEL TURNER SALES PROMOTION MANAGER 08/09/[address] Douglas Huang MD 08/09/[address] Douglas Huang MD 07/10/2015 Office visit FIDEL TURNER SALES PROMOTION MANAGER 06/24/2015 Office visit Jessica Chakraborty SALES PROMOTION MANAGER 04/11/2015 Nurse visit FIDEL TURNER SALES PROMOTION MANAGER 01/25/2015 Office visit FIDEL TURNER SALES PROMOTION MANAGER 02/06/2013 Office visit FDIEL TURNER SALES PROMOTION MANAGER 03/24/2011 Office visit Fidel Turner SALES PROMOTION MANAGER 09/29/2010 Nurse visit Fidel Turner SALES PROMOTION MANAGER 08/20/2009 Office visit Fidel Turner SALES PROMOTION MANAGER
--- OUTSIDE RECORDS SUMMARY | 2018-09-11 10:10 | XMS REPORT ---
Author Author [facility] Organization [facility] Address [address] [place], [place] [id number] Care Team Providers Care Locomotive Operator Name Role Phone PCP Unavailable Allergies and Adverse Reactions Name Reaction Notes Zithromax hives Plan of Treatment Not available. Medications Active Name Start Date Estimated Completion Date SIG Comments sertraline Oral Tablet 50 mg take 1 tablet (50 mg) by oral route once daily Lessina Oral tablet 0.1-20 mg-mcg take 1 tablet by oral route once daily bupropion HCl oral tablet extended release 24 hr 300 mg take 1 tablet by oral route daily fluticasone nasal spray,suspension 50 mcg/actuation 01/25/2015 inhale 1 spray (50 mcg) in each nostril by intranasal route 2 times per day Diflucan oral tablet 150 mg 02/06/2015 take 1 tablet (150 mg) by oral route once Name Start Date Expiration Date SIG Comments ZOFRAN ODT Oral tablet,disintegrating 4 mg 02/06/2013 dissolve 1-2 tablets by oral route 3 times a day as needed amoxicillin oral tablet 875 mg 01/25/2015 02/04/2015 take 1 tablet (875 mg) by oral route every 12 hours for 10 days Problem List Description Status Onset Depression Active Migraine Active Vital Signs Date Time BP-Sys(mm[Hg] BP-Luba(mm[Hg]) HR(bpm) RR(rpm) Temp WT HT HC BMI BSA BMI Percentile O2 Sat(%) 01/25/2015 9:04:00 AM 102 mmHg 60 mmHg [...] Reviewed 04/11/2015 12:00 AM IMMUNIZATION ADMIN Reviewed Results Summary Not available. History Of Immunizations Not available. History of Past Illness Name Date of Onset Comments Depression Migraine Flu Sep 29 2010 5:16PM Sports Physical Mar 24 2011 11:13AM Gastroenteritis Feb 06 2013 2:15PM Depression Jan 25 2015 9:10AM Migraine Jan 25 2015 9:10AM Upper respiratory infection Jan 25 2015 9:10AM Gardsil (HPV) Apr 11 2015 1:10PM Payers Insurance Name Company Name Plan Name Plan Number Policy Number Policy Group Number Start Date Aetna Aetna [id number] Friday, 2015 [facility] void October [facility] void October [facility] void Monday, 2010 History of Encounters Visit Date Visit Type Provider 04/11/2015 Nurse visit FIDEL ENCARNACION NEWSROOM INTERN 01/25/2015 Office visit FIDEL ENCARNACION NEWSROOM INTERN 02/06/2013 Office visit FIDEL ENCARNACION NEWSROOM INTERN 03/24/2011 Office visit Fidel Encarnacion NEWSROOM INTERN 09/29/2010 Nurse visit Fidel Encarnacion NEWSROOM INTERN 08/20/2009 Office visit Fidel Encarnacion NEWSROOM INTERN
--- OUTSIDE RECORDS SUMMARY | 2018-09-11 10:10 | XMS REPORT ---
Author Author Jessica Chakraborty [facility] Address [address] [place], [place] [id number] Care Team Providers Care Bargain Table Clerk Name Role Phone Jessica Chakraborty PCP Unavailable Allergies and Adverse Reactions Name Reaction Notes Zithromax hives Plan of Treatment Not available. Medications Active Name Start Date Estimated Completion Date SIG Comments Forfivo XL 450 mg oral tablet extended release 24 hr 04/08/2016 TAKE 1 TABLET BY MOUTH DAILY sertraline 100 mg oral tablet 06/22/2016 TAKE 2 TABLETS BY ORAL ROUTE DAILY FOR 90 DAYS Forfivo XL 450 mg oral tablet extended release 24 hr 09/21/2016 TAKE 1 TABLET BY MOUTH DAILY Previfem 0.25-35 mg-mcg oral tablet 10/13/2016 09/14/2017 take 1 tablet by oral route once daily for 84 days lamotrigine 100 mg oral tablet 10/15/2016 TAKE 1 TABLET BY ORAL ROUTE DAILY FOR 90 DAYS lamotrigine 25 mg oral tablet 10/15/2016 TAKE THREE(3)TABLETS EVERY DAY Previfem 0.25-35 mg-mcg oral tablet 10/27/2016 TAKE 1 TABLET BY MOUTH DAILY Name Start Date Expiration Date SIG Comments [...] 1 CAPSULE EVERY DAY BEFORE A MEAL Problem List Description Status Onset Depression Active Migraine Active Chronic tension-type headache, not intractable Active 05/15/2016 myofascial pain Active 05/28/2016 Vital Signs Date Time BP-Sys(mm[Hg] BP-Luba(mm[Hg]) HR(bpm) RR(rpm) Temp WT HT HC BMI BSA BMI Percentile O2 Sat(%) 10/13/2016 3:54:00 PM 136 mmHg 89 mmHg 103 bpm 19 rpm 98.2 F 148.025 lbs 69 in 21.86 kg/m2 1.81 m2 51.9 % 99 % 09/08/2016 4:56:00 PM 118 mmHg 78 mmHg 81 bpm 20 rpm 97.8 F 147 lbs 69 in 21.7079 kg/m 1.8017 m 50.3 % 98 % 05/27/2016 4:25:00 PM [...] 12:00 AM ECHO EXAM OF ABDOMEN Returned 05/28/2016 12:00 AM HEPATOBILIARY SYSTEM IMAGING Reviewed 10/13/2016 12:00 AM SPECIMEN HANDLING OFFICE-LAB Reviewed 10/13/2016 12:00 AM CHLAMYDIA CULTURE Reviewed 10/13/2016 12:00 AM N.GONORRHOEAE DNA AMP PROB Reviewed 09/29/2010 12:00 AM IMMUNIZATION ADMIN Reviewed [...] AM TRICHOMONAS ASSAY W/OPTIC Reviewed Results Summary Data and Description Results [...] 04/11/2015 [employer] MSD GARDASIL [id number] Intramuscular Left Deltoid 04/12/2015 03/10/2013 63 History of Past Illness Name Date of Onset Comments Depression Migraine Flu Sep 29 2010 5:16PM Chronic tension-type headache, not intractable 05/15/2016 Stretching,heat and massageNTB, avoid gum chewing, hard candy for the TMJReturn for TPIsShe may benefit from ADDISON block in the future. myofascial pain 05/28/2016 Sports Physical Mar 24 2011 [...] 3:56PM Contraceptive surveillance Oct 13 2016 3:56PM Payers Insurance Name Company Name Plan Name Plan Number Policy Number Policy Group Number Start Date Dimitri Mosley [id number] Friday, 2015 [facility] void October [facility] void October [facility] void Monday, 2010 History of Encounters Visit Date Visit Type Provider 10/13/2016 Office visit Jessica Chakraborty NATURAL SCIENCES DEPARTMENT CHAIR 09/08/[address] Douglas Huang MD 05/27/2016 Office visit Rupal SHOOK 05/15/2016 Office visit Rupal SHOOK 04/30/2016 Office visit Rupal SHOOK 11/06/[address] Douglas Huang MD 10/23/[address] Douglas Huang MD 08/26/[address] Douglas Huang MD 08/15/2015 Laboratory FIDEL TURNER NATURAL SCIENCES DEPARTMENT CHAIR 08/12/2015 Office visit FIDEL TURNER NATURAL SCIENCES DEPARTMENT CHAIR 08/09/[address] Douglas Huang MD 08/09/[address] Douglas Huang MD 07/10/2015 Office visit FIDEL TURNER NATURAL SCIENCES DEPARTMENT CHAIR 06/24/2015 Office visit 06/24/2015 Office visit Jessica Chakraborty NATURAL SCIENCES DEPARTMENT CHAIR 04/11/2015 Nurse visit FIDEL TURNER NATURAL SCIENCES DEPARTMENT CHAIR 01/25/2015 Office visit FIDEL TURNER NATURAL SCIENCES DEPARTMENT CHAIR 02/06/2013 Office visit FIDEL TURNER NATURAL SCIENCES DEPARTMENT CHAIR 03/24/2011 Office visit Fidel Turner NATURAL SCIENCES DEPARTMENT CHAIR 09/29/2010 Nurse visit Fidel Turner NATURAL SCIENCES DEPARTMENT CHAIR 08/20/2009 Office visit Fidel Turner NATURAL SCIENCES DEPARTMENT CHAIR
--- OUTSIDE RECORDS SUMMARY | 2018-09-11 10:11 | XMS REPORT ---
Author Author [facility] Organization [facility] Address [address] [place], [place] [address] Care Team Providers Care Bleacher Lard Name Role Phone PCP Unavailable Allergies and [...] Policy Group Number Start Date Aetna Aetna [id number] Friday, 2015 [facility] void October [facility] void Monday, 2010 History of Encounters Visit Date Visit Type Provider 04/11/2015 Nurse visit FIDEL ENCARNACION SENIOR SOFTWARE ENGINEER ANALYTICS 01/25/2015 Office visit FIDEL ENCARNACION SENIOR SOFTWARE ENGINEER ANALYTICS 02/06/2013 Office visit FIDEL ENCARNACION SENIOR SOFTWARE ENGINEER ANALYTICS 03/24/2011 Office visit Fidel Encarnacion SENIOR SOFTWARE ENGINEER ANALYTICS 09/29/2010 Nurse visit Fidel Encarnacion SENIOR SOFTWARE ENGINEER ANALYTICS 08/20/2009 Office visit Fidel Encarnacion SENIOR SOFTWARE ENGINEER ANALYTICS
--- OUTSIDE RECORDS SUMMARY | 2018-09-11 10:11 | XMS REPORT ---
Author Author Rupal Michel [facility] Address [address] [place], [place] [address] Care Team Providers Care Television News Video Editor Name Role Phone Rupal Michel PCP Allergies and Adverse Reactions Name Reaction Notes Zithromax hives Plan of Treatment Planned Activity Comments Planned Date Planned Time Plan/Goal ECHO EXAM OF ABDOMEN 05/15/2016 12:00 AM Medications Active Name Start Date [...] DAILY FOR 90 DAYS for 90 days Name Start Date Expiration [...] Chronic tension-type headache, not intractable Active 05/15/2016 Vital Signs Date Time BP-Sys(mm[Hg] BP-Luba(mm[Hg]) HR(bpm) RR(rpm) Temp WT HT HC BMI BSA BMI Percentile O2 Sat(%) 05/15/2016 10:53:00 AM 110 mmHg 60 mmHg [...] 05/15/2016 12:00 AM COMPREHEN METABOLIC PANEL Returned 09/29/2010 12:00 AM IMMUNIZATION ADMIN Reviewed [...] 0.06 History Of Immunizations Name Date Admin Mfg Name Mfg Code Trade Name Lot# Route Inj Vis Given Vis Pub CVX HPV 04/11/2015 [employer] MSD GARDASIL [id number] Intramuscular Left Deltoid 04/12/2015 03/10/2013 63 History of Past Illness Name Date of Onset Comments Depression Migraine Flu Sep 29 2010 5:16PM Chronic tension-type headache, not intractable 05/15/2016 Stretching,heat and massageNTB, avoid gum chewing, hard candy for the TMJReturn for TPIsShe may benefit from ADDISON block in the future. Sports Physical Mar 24 2011 11:13AM Gastroenteritis [...] headache, not intractable May 15 2016 10:55AM Payers Insurance Name Company Name Plan Name Plan Number Policy Number Policy Group Number Start Date Aetna Aetna [id number] Friday, 2015 [facility] void October [facility] void October [facility] void Monday, 2010 History of Encounters Visit Date Visit Type Provider 05/15/2016 Office visit Rupal SHOOK 04/30/2016 Office visit Rupal SHOOK 11/06/[address] Douglas Huang MD 10/23/[address] Douglas Huang MD 08/26/[address] Douglas Huang MD 08/15/2015 Laboratory FIDEL TURNER DISPUTE COORDINATOR 08/12/2015 Office visit FIDEL TURNER DISPUTE COORDINATOR 08/09/[address] Douglas Huang MD 08/09/[address] Douglas Huang MD 07/10/2015 Office visit FIDEL TURNER DISPUTE COORDINATOR 06/24/2015 Office visit 06/24/2015 Office visit Jessica Chakraborty DISPUTE COORDINATOR 04/11/2015 Nurse visit FIDEL TURNER DISPUTE COORDINATOR 01/25/2015 Office visit FIDEL TURNER DISPUTE COORDINATOR 02/06/2013 Office visit FIDEL TURNER DISPUTE COORDINATOR 03/24/2011 Office visit Fidel Turner DISPUTE COORDINATOR 09/29/2010 Nurse visit Fidel Turner DISPUTE COORDINATOR 08/20/2009 Office visit Fidel Turner DISPUTE COORDINATOR
--- OUTSIDE RECORDS SUMMARY | 2018-09-11 10:11 | XMS REPORT ---
Author Author FIDEL TURNER [facility] Address [address] [place], [place] [address] Care Team Providers Care Fisher Weir Name Role Phone FIDEL TURNER PCP Unavailable [...] 04/11/2015 [employer] MSD GARDASIL [id number] Intramuscular Left Deltoid 04/12/2015 03/10/2013 63 History [...] Policy Group Number Start Date Aetna Aetna [id number] Friday, 2015 [facility] void October [facility] void October [facility] void Monday, 2010 History of Encounters Visit Date Visit Type Provider 07/10/2015 Office visit FIDEL TURNER ELECTRICAL TECH/PROJECT MANAGER 06/24/2015 Office visit Jessica Chakraborty ELECTRICAL TECH/PROJECT MANAGER 04/11/2015 Nurse visit FIDEL TURNER ELECTRICAL TECH/PROJECT MANAGER 01/25/2015 Office visit FIDEL TURNER ELECTRICAL TECH/PROJECT MANAGER 02/06/2013 Office visit FIDEL TURNER ELECTRICAL TECH/PROJECT MANAGER 03/24/2011 Office visit Fidel Turner ELECTRICAL TECH/PROJECT MANAGER 09/29/2010 Nurse visit Fidel Turner ELECTRICAL TECH/PROJECT MANAGER 08/20/2009 Office visit Fidel Turner ELECTRICAL TECH/PROJECT MANAGER
--- OUTSIDE RECORDS SUMMARY | 2018-09-11 10:11 | XMS REPORT ---
Author Author FIDEL TURNER [facility] Address [address] [place], [place] [address] Care Team Providers Care Industrial Engineering Intern Name Role Phone FIDEL TURNER PCP Unavailable [...] 04/11/2015 [employer] MSD GARDASIL [id number] Intramuscular Left Deltoid 04/12/2015 03/10/2013 63 History [...] Policy Group Number Start Date Aetna Aetna [id number] Friday, 2015 [facility] void October [facility] void October [facility] void Monday, 2010 History of Encounters Visit Date Visit Type Provider 07/10/2015 Office visit FIDEL TURNER BATCH MIXER 06/24/2015 Office visit Jessica Chakraborty BATCH MIXER 04/11/2015 Nurse visit FIDEL TURNER BATCH MIXER 01/25/2015 Office visit FIDEL TURNER BATCH MIXER 02/06/2013 Office visit FIDEL TURNER BATCH MIXER 03/24/2011 Office visit Fidel Turner BATCH MIXER 09/29/2010 Nurse visit Fidel Turner BATCH MIXER 08/20/2009 Office visit Fidel Turner BATCH MIXER
--- OUTSIDE RECORDS SUMMARY | 2018-09-11 10:11 | XMS REPORT ---
Author Author FIDEL TURNER [facility] Address [address] [place], [place] [phone] Care Team Providers Care Phlebotomist Medical Lab Assistant Name Role Phone FIDEL TURNER PCP Unavailable [...] oral route once daily for 90 days cyclobenzaprine 10 mg oral tablet 08/12/2015 take 1 tablet by oral route once a day (at bedtime) Anaprox DS 550 mg oral tablet 08/12/2015 take 1 tablet (550 mg) by oral route 2 times per day in the morning and evening with food Name Start Date Expiration Date SIG Comments [...] HC BMI BSA BMI Percentile O2 Sat(%) 08/12/2015 3:05:00 PM 116 mmHg 68 mmHg [...] 04/11/2015 [employer] MSD GARDASIL [id number] Intramuscular Left Deltoid 04/12/2015 03/10/2013 63 History [...] 3:07PM Adolescent depression Aug 15 2015 10:50AM Payers Insurance Name Company Name Plan Name Plan Number Policy Number Policy Group Number Start Date Aetna Aetna [id number] Friday, 2015 [facility] October [facility] void October [facility] void Monday, 2010 History of Encounters Visit Date Visit Type Provider 08/15/2015 Laboratory FIDEL TURNER TEST AUTOMATION ARCHITECT 08/12/2015 Office visit FIDEL TURNER TEST AUTOMATION ARCHITECT 08/09/[address] Douglas Huang MD 08/09/[address] Douglas Huang MD 07/10/2015 Office visit FIDEL TURNER TEST AUTOMATION ARCHITECT 06/24/2015 Office visit Jessica Chakraborty TEST AUTOMATION ARCHITECT 04/11/2015 Nurse visit FIDEL TURNER TEST AUTOMATION ARCHITECT 01/25/2015 Office visit FIDEL TURNER TEST AUTOMATION ARCHITECT 02/06/2013 Office visit FIDEL TURNER TEST AUTOMATION ARCHITECT 03/24/2011 Office visit Fidel Turner TEST AUTOMATION ARCHITECT 09/29/2010 Nurse visit Fidel Turner TEST AUTOMATION ARCHITECT 08/20/2009 Office visit Fidel Turner TEST AUTOMATION ARCHITECT
--- OUTSIDE RECORDS SUMMARY | 2018-09-11 10:12 | XMS REPORT ---
Author Author FIDEL TURNER [facility] Address [address] [place], [place] [address] Care Team Providers Care Industrial Court Magistrate Name Role Phone FIDEL TURNER PCP Unavailable [...] 04/11/2015 [employer] MSD GARDASIL [id number] Intramuscular Left Deltoid 04/12/2015 03/10/2013 63 History [...] Policy Group Number Start Date Aetna Aetna [id number] Friday, 2015 [facility] void October [facility] void October [facility] void Monday, 2010 History of Encounters Visit Date Visit Type Provider 08/15/2015 Laboratory FIDEL TURNER MD PSYCHIATRY 08/12/2015 Office visit FIDEL TURNER MD PSYCHIATRY 08/09/[address] Douglas Huang MD 08/09/[address] Douglas Huang MD 07/10/2015 Office visit FIDEL TURNER MD PSYCHIATRY 06/24/2015 Office visit Jessica Chakraborty MD PSYCHIATRY 04/11/2015 Nurse visit FIDEL TURNER MD PSYCHIATRY 01/25/2015 Office visit FIDEL TURNER MD PSYCHIATRY 02/06/2013 Office visit IFDEL TURNER MD PSYCHIATRY 03/24/2011 Office visit Fidel Turner MD PSYCHIATRY 09/29/2010 Nurse visit Fidel Turner MD PSYCHIATRY 08/20/2009 Office visit Fidel Turner MD PSYCHIATRY
--- OUTSIDE RECORDS SUMMARY | 2018-09-11 10:12 | XMS REPORT ---
Author Author FIDEL TURNER [facility] Address [address] [place], [place] [id number] Care Team Providers Care Nail Tech Name Role Phone FIDEL TURNER PCP Unavailable [...] 04/11/2015 [employer] MSD GARDASIL [id number] Intramuscular Left Deltoid 04/12/2015 03/10/2013 63 History [...] Policy Group Number Start Date Aetna Aetna [id number] Friday, 2015 [facility] void October [facility] void October [facility] void Monday, 2010 History of Encounters Visit Date Visit Type Provider 07/10/2015 Office visit FIDEL TURNER ROBOTICS TECHNICIAN 06/24/2015 Office visit Jessica Chakraborty ROBOTICS TECHNICIAN 04/11/2015 Nurse visit FIDEL TURNER ROBOTICS TECHNICIAN 01/25/2015 Office visit FIDEL TURNER ROBOTICS TECHNICIAN 02/06/2013 Office visit FIDEL TURNER ROBOTICS TECHNICIAN 03/24/2011 Office visit Fidel Turner ROBOTICS TECHNICIAN 09/29/2010 Nurse visit Fidel Turner ROBOTICS TECHNICIAN 08/20/2009 Office visit Fidel Turner ROBOTICS TECHNICIAN
--- OUTSIDE RECORDS SUMMARY | 2018-09-11 10:12 | XMS REPORT ---
Author Author Jessica Chakraborty [facility] Address [address] [place], [place] [id number] Care Team Providers Care Logistic Manager Name Role Phone Jessica Chakraborty PCP Allergies [...] EVERY DAY Previfem 0.25-35 mg-mcg oral tablet 12/03/2017 TAKE 1 TABLET BY MOUTH DAILY for 84 days Name Start Date Expiration Date SIG [...] 1 CAPSULE EVERY DAY BEFORE A MEAL Diflucan 150 mg oral tablet 01/27/2017 12/03/2017 take 1 tablet (150 mg) by oral route once Problem List Description Status Onset Depression Active Migraine Active Chronic tension-type headache, not intractable Active 05/15/2016 myofascial pain Active 05/28/2016 Vital Signs Date Time BP-Sys(mm[Hg] BP-Luba(mm[Hg]) HR(bpm) RR(rpm) Temp WT HT HC BMI BSA BMI Percentile O2 Sat(%) 12/03/2017 11:08:00 AM 129 mmHg 82 mmHg 81 bpm 98.6 F 166 lbs 69 in 24.5137 kg/m 1.9146 m 10/13/2016 3:54:00 PM 136 mmHg 89 mmHg [...] F 143 lbs 66 in 23.0806 kg/m 1.74 m2 67.7 % 100 % 06/24/2015 4:11:00 PM 137 mmHg 86 mmHg 88 bpm 18 rpm 98.4 F 143 lbs 71 in 19.94 kg/m2 1.8026 m 29.9 % 01/25/2015 9:04:00 AM 102 mmHg 60 mmHg 79 bpm 18 rpm 97.9 F 149 lbs 71 in 20.7811 kg/m 1.84 m2 43.2 % 99 % 02/06/2013 2:10:00 PM 116 mmHg 78 mmHg 134 bpm 18 rpm 98.4 F 149 lbs 71 in 20.78 kg/m2 1.84 m 53.6 % 98 % 03/24/2011 11:07:00 AM 118 mmHg 62 mmHg 76 bpm 22 rpm 97.8 F 143 lbs 67 in 22.3967 kg/m 1.75 m2 78.9 % 98 % Social [...] 04/11/2015 [employer] MSD GARDASIL [id number] Intramuscular Left Deltoid 04/12/2015 03/10/2013 63 History [...] 11:11AM Contraceptive management Dec 03 2017 11:11AM Payers Insurance Name Company Name Plan Name Plan Number Policy Number Policy Group Number Start Date Aetna Aetna [id number] Friday, 2015 [facility] void Monday, 2010 History of Encounters Visit Date Visit Type Provider 12/03/2017 Office visit Jessica Chakraborty ENGINEERING PROJECT DESIGNER 10/13/2016 Office visit Jessica Chakraborty ENGINEERING PROJECT DESIGNER 09/08/[address] Douglas Huang MD 05/27/2016 Office visit Rupal SHOOK 05/15/2016 Office visit Rupal SHOOK 04/30/2016 Office visit Rupal SHOOK 11/06/[address] Douglas Huang MD 10/23/[address] Douglas Huang MD 08/26/[address] Douglas Huang MD 08/15/2015 Laboratory FIDEL TURNER ENGINEERING PROJECT DESIGNER 08/12/2015 Office visit FIDEL TURNER ENGINEERING PROJECT DESIGNER 08/09/[address] Douglas Huang MD 08/09/[address] Douglas Huang MD 07/10/2015 Office visit FIDEL TURNER ENGINEERING PROJECT DESIGNER 06/24/2015 Office visit 06/24/2015 Office visit Jessica Chakraborty ENGINEERING PROJECT DESIGNER 04/11/2015 Nurse visit FIDEL TURNER ENGINEERING PROJECT DESIGNER 01/25/2015 Office visit FIDEL TURNER ENGINEERING PROJECT DESIGNER 02/06/2013 Office visit FIDEL TURNER ENGINEERING PROJECT DESIGNER 03/24/2011 Office visit Fidel Turner ENGINEERING PROJECT DESIGNER 09/29/2010 Nurse visit Fidel Turner ENGINEERING PROJECT DESIGNER 08/20/2009 Office visit Fidel Turner APRN
--- OUTSIDE RECORDS SUMMARY | 2018-09-11 10:13 | XMS REPORT ---
Author Author Jessica Chakraborty [facility] Address [address] [place], [place] [id number] Care Team Providers Care Rubber Vulcanizing Machine Operator Name Role Phone Jessica Chakraborty PCP Allergies [...] 04/11/2015 [employer] MSD GARDASIL [id number] Intramuscular Left Deltoid 04/12/2015 03/10/2013 63 History [...] Policy Group Number Start Date Aetna Aetna [id number] Friday, 2015 [facility] void October [facility] void October [facility] void Monday, 2010 History of Encounters Visit Date Visit Type Provider 12/03/2017 Office visit Jessica Chakraborty HANDLE BAR ASSEMBLER 10/13/2016 Office visit Jessica Chakraborty HANDLE BAR ASSEMBLER 09/08/[address] Douglas Huang MD 05/27/2016 Office visit Rupal SHOOK 05/15/2016 Office visit Rupal SHOOK 04/30/2016 Office visit Rupal SHOOK 11/06/[address] Douglas Huang MD 10/23/[address] Douglas Huang MD 08/26/[address] Douglas Huang MD 08/15/2015 Laboratory FIDEL TURNER HANDLE BAR ASSEMBLER 08/12/2015 Office visit FIDEL TURNER HANDLE BAR ASSEMBLER 08/09/[address] Douglas Huang MD 08/09/[address] Douglas Huang MD 07/10/2015 Office visit FIDEL TURNER HANDLE BAR ASSEMBLER 06/24/2015 Office visit 06/24/2015 Office visit Jessica Chakraborty HANDLE BAR ASSEMBLER 04/11/2015 Nurse visit FIDEL TURNER HANDLE BAR ASSEMBLER 01/25/2015 Office visit FIDEL TURNER HANDLE BAR ASSEMBLER 02/06/2013 Office visit FIDEL TURNER HANDLE BAR ASSEMBLER 03/24/2011 Office visit Fidel Turner HANDLE BAR ASSEMBLER 09/29/2010 Nurse visit Fidel Turner HANDLE BAR ASSEMBLER 08/20/2009 Office visit Fidel Turner APRN
--- OUTSIDE RECORDS SUMMARY | 2018-09-11 10:13 | XMS REPORT ---
Author Author Jessica Chakraborty [facility] Address [address] [place], [place] [address] Care Team Providers Care Registered Nurse Teacher Name Role Phone Jessica Chakraborty PCP Allergies [...] 04/11/2015 [employer] MSD GARDASIL [id number] Intramuscular Left Deltoid 04/12/2015 03/10/2013 63 History [...] Policy Group Number Start Date Aetna Aetna [id number] Friday, 2015 [facility] void October [facility] void October [facility] void Monday, 2010 History of Encounters Visit Date Visit Type Provider 12/03/2017 Office visit Jessica Chakraborty CLOTH BALER 10/13/2016 Office visit Jessica Chakraborty CLOTH BALER 09/08/[address] Douglas Huang MD 05/27/2016 Office visit Rupal SHOOK 05/15/2016 Office visit Rupal SHOOK 04/30/2016 Office visit Rupal SHOOK 11/06/[address] Douglas Huang MD 10/23/[address] Douglas Huang MD 08/26/[address] Douglas Huang MD 08/15/2015 Laboratory FIDEL TURNER CLOTH BALER 08/12/2015 Office visit FIDEL TURNER CLOTH BALER 08/09/[address] Douglas Huang MD 08/09/[address] Douglas Huang MD 07/10/2015 Office visit FIDEL TURNER CLOTH BALER 06/24/2015 Office visit 06/24/2015 Office visit Jessica Chakraborty CLOTH BALER 04/11/2015 Nurse visit FIDEL TURNER CLOTH BALER 01/25/2015 Office visit FIDEL TURNER CLOTH BALER 02/06/2013 Office visit FIDEL TURNER CLOTH BALER 03/24/2011 Office visit Fidel Turner CLOTH BALER 09/29/2010 Nurse visit Fidel Turner CLOTH BALER 08/20/2009 Office visit Fidel Turner APRN
--- OUTSIDE RECORDS SUMMARY | 2018-09-11 10:14 | XMS REPORT ---
Author Author FIDEL TURNER [facility] Address [address] [place], [place] [id number] Care Team Providers Care Traveling Missionary Name Role Phone FIDEL TURNER PCP Unavailable [...] 04/11/2015 [employer] MSD GARDASIL [id number] Intramuscular Left Deltoid 04/12/2015 03/10/2013 63 History [...] Policy Group Number Start Date Aetna Aetna [id number] Friday, 2015 [facility] void October [facility] void October [facility] void Monday, 2010 History of Encounters Visit Date Visit Type Provider 07/10/2015 Office visit FIDEL TURNER BOSOM PRESSER 06/24/2015 Office visit Jessica Chakraborty BOSOM PRESSER 04/11/2015 Nurse visit FIDEL TURNER BOSOM PRESSER 01/25/2015 Office visit FIDEL TURNER BOSOM PRESSER 02/06/2013 Office visit FIDEL TURNER BOSOM PRESSER 03/24/2011 Office visit Fidel Turner BOSOM PRESSER 09/29/2010 Nurse visit Fidel Turner BOSOM PRESSER 08/20/2009 Office visit Fidel Turner BOSOM PRESSER
--- OUTSIDE RECORDS SUMMARY | 2018-09-11 10:14 | XMS REPORT ---
Author Author Jessica Chakraborty [facility] Address [address] [place], [place] [phone] Care Team Providers Care Financial Report Service Sales Agent Name Role Phone Jessica Chakraborty PCP Unavailable Allergies and Adverse Reactions Name Reaction Notes Zithromax hives Plan of Treatment Planned Activity Comments Planned Date Planned Time Plan/Goal Chlamydia 10/13/2016 12:00 AM Gonorrhea 10/13/2016 12:00 AM Medications Active Name Start Date [...] oral route once daily for 84 days Name Start Date Expiration [...] 05/28/2016 12:00 AM HEPATOBILIARY SYSTEM IMAGING Reviewed 09/29/2010 12:00 AM IMMUNIZATION ADMIN Reviewed [...] 04/11/2015 [employer] MSD GARDASIL [id number] Intramuscular Left Deltoid 04/12/2015 03/10/2013 63 History [...] Policy Group Number Start Date Aetna Aetna [id number] Friday, 2015 [facility] void October [facility] void October [facility] void Monday, 2010 History of Encounters Visit Date Visit Type Provider 10/13/2016 Office visit Jessica Chakraborty KRAFT DIGESTER OPERATOR 09/08/[address] Douglas Huang MD 05/27/2016 Office visit Rupal SHOOK 05/15/2016 Office visit Rupal HERNANDEZP 04/30/2016 Office visit Rupal HERNANDEZP 11/06/[address] Douglas Huang MD 10/23/[address] Douglas Huang MD 08/26/[address] Douglas Huang MD 08/15/2015 Laboratory FIDEL TURNER KRAFT DIGESTER OPERATOR 08/12/2015 Office visit FIDEL TURNER KRAFT DIGESTER OPERATOR 08/09/[address] Douglas Huang MD 08/09/[address] Douglas Huang MD 07/10/2015 Office visit FIDEL TURNER KRAFT DIGESTER OPERATOR 06/24/2015 Office visit 06/24/2015 Office visit Jessica Chakraborty KRAFT DIGESTER OPERATOR 04/11/2015 Nurse visit FIDEL TURNER KRAFT DIGESTER OPERATOR 01/25/2015 Office visit FIDEL TURNER KRAFT DIGESTER OPERATOR 02/06/2013 Office visit FIDEL TURNER KRAFT DIGESTER OPERATOR 03/24/2011 Office visit Fidel Turner KRAFT DIGESTER OPERATOR 09/29/2010 Nurse visit Fidel Turner KRAFT DIGESTER OPERATOR 08/20/2009 Office visit Fidel Turner KRAFT DIGESTER OPERATOR
--- OUTSIDE RECORDS SUMMARY | 2018-09-11 10:14 | XMS REPORT ---
Author Author FIDEL TURNER [facility] Address [address] [place], [place] [phone] Care Team Providers Care Almond Paste Mixer Name Role Phone FIDEL TURNER PCP Unavailable [...] 04/11/2015 [employer] MSD GARDASIL [id number] Intramuscular Left Deltoid 04/12/2015 03/10/2013 63 History [...] Left TMJ inflammation Aug 12 2015 3:07PM Payers Insurance Name Company Name Plan Name Plan Number Policy Number Policy Group Number Start Date Aetna Aetna [id number] Friday, 2015 [facility] void October [facility] void October [facility] void Monday, 2010 History of Encounters Visit Date Visit Type Provider 08/12/2015 Office visit FIDEL TURNER MARKET SPECIALIST 08/09/[address] Douglas Huang MD 08/09/[address] Douglas Huang MD 07/10/2015 Office visit FIDEL TURNER MARKET SPECIALIST 06/24/2015 Office visit Jessica Chakraborty MARKET SPECIALIST 04/11/2015 Nurse visit FIDEL TURNER MARKET SPECIALIST 01/25/2015 Office visit FIDEL TURNER MARKET SPECIALIST 02/06/2013 Office visit FIDEL TURNER MARKET SPECIALIST 03/24/2011 Office visit Fidel Turner MARKET SPECIALIST 09/29/2010 Nurse visit Fidel Turner MARKET SPECIALIST 08/20/2009 Office visit Fidel Turner MARKET SPECIALIST
--- OUTSIDE RECORDS SUMMARY | 2018-09-11 10:15 | XMS REPORT ---
Author Author Jessica Chakraborty [facility] Address [address] [place], [place] [id number] Care Team Providers Care Environmental Science Instructor Name Role Phone Jessica Chakraborty PCP Allergies and Adverse Reactions Name Reaction Notes Zithromax hives Plan of Treatment Planned Activity Comments Planned Date Planned Time Plan/Goal Chlamydia 12/03/2017 12:00 AM Gonorrhea 12/03/2017 12:00 AM TRICHOMONAS AMPLIFIED 12/03/2017 12:00 AM TRICHOMONAS AMPLIFIED 12/03/2017 12:00 AM Medications Active Name Start Date [...] 04/11/2015 [employer] MSD GARDASIL [id number] Intramuscular Left Deltoid 04/12/2015 03/10/2013 63 History [...] Policy Group Number Start Date Aetna Aetna [id number] Friday, 2015 [facility] void October [facility] void October [facility] void Monday, 2010 History of Encounters Visit Date Visit Type Provider 12/03/2017 Office visit Jessica Chakraborty CAUSTIC MIXER 10/13/2016 Office visit Jessica Chakraborty CAUSTIC MIXER 09/08/[address] Douglas Huang MD 05/27/2016 Office visit Rupal SHOOK 05/15/2016 Office visit Rupal SHOOK 04/30/2016 Office visit Rupal SHOOK 11/06/[address] Douglas Huang MD 10/23/[address] Douglas Huang MD 08/26/[address] Douglas Huang MD 08/15/2015 Laboratory FIDEL TURNER CAUSTIC MIXER 08/12/2015 Office visit FIDEL TURNER CAUSTIC MIXER 08/09/[address] Douglas Huang MD 08/09/[address] Douglas Huang MD 07/10/2015 Office visit FIDEL TURNER CAUSTIC MIXER 06/24/2015 Office visit 06/24/2015 Office visit Jessica Chakraborty CAUSTIC MIXER 04/11/2015 Nurse visit FIDEL TURNER CAUSTIC MIXER 01/25/2015 Office visit FIDEL TURNER CAUSTIC MIXER 02/06/2013 Office visit FIDEL TURNER CAUSTIC MIXER 03/24/2011 Office visit Fidel Turner CAUSTIC MIXER 09/29/2010 Nurse visit Fidel Turner APRN 08/20/2009 Office visit Fidel Turner APRN
--- OUTSIDE RECORDS SUMMARY | 2018-09-11 10:15 | XMS REPORT ---
Author Author Rupal Michel [facility] Address [address] [place], [place] [address] Care Team Providers Care Executive Coach Name Role Phone Rupal Michel PCP Allergies [...] 04/11/2015 [employer] MSD GARDASIL [id number] Intramuscular Left Deltoid 04/12/2015 03/10/2013 63 History [...] Policy Group Number Start Date Aetna Aetna [id number] Friday, 2015 [facility] void October [facility] void October [facility] void Monday, 2010 History of Encounters Visit Date Visit Type Provider 05/15/2016 Office visit Rupal SHOOK 04/30/2016 Office visit Rupal SHOOK 11/06/[address] Douglas Huang MD 10/23/[address] Douglas Huang MD 08/26/[address] Douglas Huang MD 08/15/2015 Laboratory FIDEL TURNER TELESALES SPECIALIST 08/12/2015 Office visit FIDEL TURNER TELESALES SPECIALIST 08/09/[address] Douglas Huang MD 08/09/[address] Douglas Huang MD 07/10/2015 Office visit FIDEL TURNER TELESALES SPECIALIST 06/24/2015 Office visit 06/24/2015 Office visit Jessica Chakraborty TELESALES SPECIALIST 04/11/2015 Nurse visit FIDEL TURNER TELESALES SPECIALIST 01/25/2015 Office visit FIDEL TURNER TELESALES SPECIALIST 02/06/2013 Office visit FIDEL TURNER TELESALES SPECIALIST 03/24/2011 Office visit Fidel Turner TELESALES SPECIALIST 09/29/2010 Nurse visit Fidel Turner TELESALES SPECIALIST 08/20/2009 Office visit Fidel Turner TELESALES SPECIALIST
--- OUTSIDE RECORDS SUMMARY | 2018-09-11 10:16 | XMS REPORT ---
Author Author Jessica Chakraborty [facility] Address [address] [place], [place] [id number] Care Team Providers Care Regional Sales Executive Name Role Phone Jsesica Chakraborty PCP Allergies and Adverse Reactions Name [...] 04/11/2015 [employer] MSD GARDASIL [id number] Intramuscular Left Deltoid 04/12/2015 03/10/2013 63 History [...] Policy Group Number Start Date Aetna Aetna [id number] Friday, 2015 [facility] void October [facility] void October [facility] void Monday, 2010 History of Encounters Visit Date Visit Type Provider 12/03/2017 Office visit Jessica Chakraborty ZOOLOGY TEACHER 10/13/2016 Office visit Jessica Chakraborty ZOOLOGY TEACHER 09/08/[address] Douglas Huang MD 05/27/2016 Office visit Rupal SHOOK 05/15/2016 Office visit Rupal SHOOK 04/30/2016 Office visit Rupal SHOOK 11/06/[address] Douglas Huang MD 10/23/[address] Douglas Huang MD 08/26/[address] Douglas Huang MD 08/15/2015 Laboratory FIDEL TURNER ZOOLOGY TEACHER 08/12/2015 Office visit FIDEL TURNER ZOOLOGY TEACHER 08/09/[address] Douglas Huang MD 08/09/[address] Douglas Huang MD 07/10/2015 Office visit FIDEL TURNER ZOOLOGY TEACHER 06/24/2015 Office visit 06/24/2015 Office visit Jessica Chakraborty ZOOLOGY TEACHER 04/11/2015 Nurse visit FIDEL TURNER ZOOLOGY TEACHER 01/25/2015 Office visit FIDEL TURNER ZOOLOGY TEACHER 02/06/2013 Office visit FIDEL TURNER ZOOLOGY TEACHER 03/24/2011 Office visit Fidel Turner ZOOLOGY TEACHER 09/29/2010 Nurse visit Fidel Turner ZOOLOGY TEACHER 08/20/2009 Office visit Fidel Turner APRN
--- OUTSIDE RECORDS SUMMARY | 2018-09-11 10:17 | XMS REPORT ---
Author Douglas Gloria [facility] Address [address] [place], [place] [address] Care Team Providers Care Supercharger Mechanic Name Role Phone Douglas Huang PCP Allergies and Adverse Reactions Name Reaction Notes Zithromax hives Plan of Treatment Planned Activity Comments Planned Date Planned Time Plan/Goal Hepatobiliary system imaging 05/28/2016 12:00 AM Medications Active Name Start Date Estimated Completion Date SIG Comments Forfivo XL 450 mg oral tablet extended release 24 hr 04/08/2016 TAKE 1 TABLET BY MOUTH DAILY sertraline 100 mg oral tablet 06/22/2016 TAKE 2 TABLETS BY ORAL ROUTE DAILY FOR 90 DAYS Previfem 0.25-35 mg-mcg oral tablet 08/06/2016 10/29/2016 take 1 tablet by oral route once [...] HC BMI BSA BMI Percentile O2 Sat(%) 09/08/2016 4:56:00 PM 118 mmHg 78 mmHg [...] 04/11/2015 [employer] MSD GARDASIL [id number] Intramuscular Left Deltoid 04/12/2015 03/10/2013 63 History of Past Illness Name Date of Onset Comments Depression Migraine Flu Dec 2010 5:16PM Chronic tension-type headache, not intractable [...] without psychotic features Sep 08 2016 4:58PM Payers Insurance Name Company Name Plan Name Plan Number Policy Number Policy Group Number Start Date Aetna Aetna [id number] Friday, 2015 [facility] void October [facility] void October [facility] void Monday, 2010 History of Encounters Visit Date Visit Type Provider 09/08/[address] Douglas Huang MD 05/27/2016 Office visit Rupal SHOOK 05/15/2016 Office visit Rupal SHOOK 04/30/2016 Office visit Rupal SHOOK 11/06/[address] Douglas Huang MD 10/23/[address] Douglas Huang MD 08/26/[address] Douglas Huang MD 08/15/2015 Laboratory FIDEL TURNER DRAPERY ESTIMATOR 08/12/2015 Office visit FIDEL TURNER DRAPERY ESTIMATOR 08/09/[address] Douglas Huang MD 08/09/[address] Douglas Huang MD 07/10/2015 Office visit FIDEL TURNER DRAPERY ESTIMATOR 06/24/2015 Office visit 06/24/2015 Office visit Jessica Chakraborty DRAPERY ESTIMATOR 04/11/2015 Nurse visit FIDEL TURNER DRAPERY ESTIMATOR 01/25/2015 Office visit FIDEL TURNER DRAPERY ESTIMATOR 02/06/2013 Office visit FIDEL TURNER DRAPERY ESTIMATOR 03/24/2011 Office visit Fidel Turner DRAPERY ESTIMATOR 09/29/2010 Nurse visit Fidel Turner DRAPERY ESTIMATOR 08/20/2009 Office visit Fidel Turner DRAPERY ESTIMATOR
--- OUTSIDE RECORDS SUMMARY | 2018-09-11 10:18 | XMS REPORT ---
Author Douglas Gloria [facility] Address [address] [place], [place] [address] Care Team Providers Care Curriculum Consultant Name Role Phone Douglas Huang PCP Allergies and Adverse Reactions Name Reaction Notes Zithromax hives Plan of Treatment Not available. Medications Active Name Start Date Estimated Completion Date SIG Comments sertraline 100 mg oral tablet 09/13/2015 03/11/2016 take 1.5 tablets (150 mg ) by oral route once daily for 90 days Previfem 0.25-35 mg-mcg oral tablet 09/17/2015 08/18/2016 take 1 tablet by oral route once daily for 84 days Forfivo XL 450 mg oral tablet extended release 24 hr 10/15/2015 04/12/2016 take 1 tablet (450 mg) by oral route once daily swallowing whole. Do not crush, chew and/or divide. for 90 days omeprazole 40 mg oral capsule,delayed release(DR/EC) 10/23/2015 04/20/2016 take 1 capsule (40 mg) by oral route once daily before a meal for 30 days lamotrigine 25 mg oral tablet 11/06/2015 01/05/2016 take 3 tablets by oral route daily for 30 days Name Start Date Expiration Date SIG [...] HC BMI BSA BMI Percentile O2 Sat(%) 11/06/2015 5:25:00 PM 112 mmHg 68 mmHg [...] 12:00 AM VITAMIN D 25 HYDROXY Returned 09/29/2010 12:00 AM IMMUNIZATION ADMIN Reviewed [...] 0.02 TSH 1.550 uIU/mLVITAMIN D 58.80 ng/mL History Of Immunizations Name Date Admin Mfg Name Mfg Code Trade Name Lot# Route Inj Vis Given Vis Pub CVX HPV 04/11/2015 [employer] MSD GARDASIL [id number] Intramuscular Left Deltoid 04/12/2015 03/10/2013 63 History [...] 5:29PM Chronic fatigue Nov 06 2015 5:29PM Payers Insurance Name Company Name Plan Name Plan Number Policy Number Policy Group Number Start Date Aetna Aemelva [id number] Friday, 2015 [facility] void October [facility] void October [facility] void Monday, 2010 History of Encounters Visit Date Visit Type Provider 11/06/[address] Douglas Huang MD 10/23/[address] Douglas Huang MD 08/26/[address] Douglas Huang MD 08/15/2015 Laboratory FIDEL TURNER PROJECT CONTROLS SPECIALIST 08/12/2015 Office visit FIDEL TURNER PROJECT CONTROLS SPECIALIST 08/09/[address] Douglas Huang MD 08/09/[address] Douglas Huang MD 07/10/2015 Office visit FIDEL TURNER PROJECT CONTROLS SPECIALIST 06/24/2015 Office visit 06/24/2015 Office visit Jessica Chakraborty PROJECT CONTROLS SPECIALIST 04/11/2015 Nurse visit FIDEL TURNER PROJECT CONTROLS SPECIALIST 01/25/2015 Office visit FIDEL TURNER PROJECT CONTROLS SPECIALIST 02/06/2013 Office visit FIDEL TURNER PROJECT CONTROLS SPECIALIST 03/24/2011 Office visit Fidel Turner PROJECT CONTROLS SPECIALIST 09/29/2010 Nurse visit Fidel Turner PROJECT CONTROLS SPECIALIST 08/20/2009 Office visit Fidel Turner PROJECT CONTROLS SPECIALIST
--- OUTSIDE RECORDS SUMMARY | 2018-09-11 10:19 | XMS REPORT ---
Author Author Rupal Michel [facility] Address [address] [place], [place] [id number] Care Team Providers Care Inventory Control Supervisor Name Role Phone Rupal Michel PCP Allergies [...] 90 days omeprazole 40 mg oral capsule,delayed release(/EC) 05/25/2016 TAKE 1 CAPSULE EVERY DAY BEFORE [...] by oral route daily for 90 days Discontinued Name Start Date [...] 0.06 History Of Immunizations Name Date Admin [facility] [place] [facility] Code Trade Name Lot# Route Inj Vis Given Vis Pub CVX HPV 04/11/2015 [employer] MSD GARDASIL [id number] Intramuscular Left Deltoid 04/12/2015 03/10/2013 63 History [...] Policy Group Number Start Date Aetna Aetna [id number] Friday, 2015 [facility] void October [facility] void October [facility] void Monday, 2010 History of Encounters Visit Date Visit Type Provider 05/27/2016 Office visit Rupal SHOOK 05/15/2016 Office visit Rupal SHOOK 04/30/2016 Office visit Rupal SHOOK 11/06/[address] Douglas Huang MD 10/23/[address] Douglas Huang MD 08/26/[address] Douglas Huang MD 08/15/2015 Laboratory FIDEL TURNER PACKER FUSER 08/12/2015 Office visit FIDEL TURNER PACKER FUSER 08/09/[address] Douglas Huang MD 08/09/[address] Douglas Huang MD 07/10/2015 Office visit FIDEL TURNER APRN 06/24/2015 Office visit 06/24/2015 Office visit Jessica Chakraborty PACKER FUSER 04/11/2015 Nurse visit FIDEL TURNER PACKER FUSER 01/25/2015 Office visit FIDEL TURNER PACKER FUSER 02/06/2013 Office visit FIDEL TURNER PACKER FUSER 03/24/2011 Office visit Fidel Turner PACKER FUSER 09/29/2010 Nurse visit Fidel Turner PACKER FUSER 08/20/2009 Office visit Fidel Turner PACKER FUSER
--- OUTSIDE RECORDS SUMMARY | 2018-09-11 10:21 | XMS REPORT ---
Author Author Rupal Michel [facility] Address [address] [place], [place] [id number] Care Team Providers Care Jewelry Setter Name Role Phone Rupal Michel PCP Allergies [...] 04/11/2015 [employer] MSD GARDASIL [id number] Intramuscular Left Deltoid 04/12/2015 03/10/2013 63 History [...] 10:55AM Myofascial pain May 27 2016 4:24PM Payers Insurance Name Company Name Plan Name Plan Number Policy Number Policy Group Number Start Date Aetna Aetna [id number] Friday, 2015 [facility] void [...] Douglas Huang MD 08/15/2015 Laboratory FIDEL TURNER DIRECTOR OF LABOR RELATIONS 08/12/2015 Office visit FIDEL TURNER DIRECTOR OF LABOR RELATIONS 08/09/[address] Douglas Huang MD 08/09/[address] Douglas Huang MD 07/10/2015 Office visit FIDEL TURNER DIRECTOR OF LABOR RELATIONS 06/24/2015 Office visit 06/24/2015 Office visit Jessica Chakrabotry DIRECTOR OF LABOR RELATIONS 04/11/2015 Nurse visit FIDEL TURNER DIRECTOR OF LABOR RELATIONS 01/25/2015 Office visit FIDEL TURNER DIRECTOR OF LABOR RELATIONS 02/06/2013 Office visit FIDEL TURNER DIRECTOR OF LABOR RELATIONS 03/24/2011 Office visit Fidel Turner DIRECTOR OF LABOR RELATIONS 09/29/2010 Nurse visit Fidel Turner DIRECTOR OF LABOR RELATIONS 08/20/2009 Office visit Fidel Turner APRN
--- OUTSIDE RECORDS SUMMARY | 2018-09-11 10:22 | XMS REPORT ---
Author Author Rupal Michel [facility] Address [address] [place], [place] [id number] Care Team Providers Care Licensed Veterinary Technician Name Role Phone Rupal Michel PCP Allergies [...] days omeprazole 40 mg oral capsule,delayed release(DR/EC) 04/30/2016 take 1 capsule (40 mg) by oral route once daily before a meal Name Start Date Expiration Date SIG Comments [...] HC BMI BSA BMI Percentile O2 Sat(%) 04/30/2016 1:09:00 PM 102 mmHg 58 mmHg [...] 04/11/2015 [employer] MSD GARDASIL [id number] Intramuscular Left Deltoid 04/12/2015 03/10/2013 63 History [...] Generalized abdominal pain Apr 30 2016 1:11PM Payers Insurance Name Company Name Plan Name Plan Number Policy Number Policy Group Number Start Date Aetna Aetna [id number] Friday, 2015 [facility] void October [facility] void October [facility] void Monday, 2010 History of Encounters Visit Date Visit Type Provider 04/30/2016 Office visit Rupal SHOOK 11/06/[address] Douglas Huang MD 10/23/[address] Douglas Huang MD 08/26/[address] Douglas Huang MD 08/15/2015 Laboratory FIDEL TURNER WARP HANGER 08/12/2015 Office visit FIDEL TURNER WARP HANGER 08/09/[address] Douglas Huang MD 08/09/[address] Douglas Huang MD 07/10/2015 Office visit FIDEL TURNER WARP HANGER 06/24/2015 Office visit 06/24/2015 Office visit Jessica Chakraborty WARP HANGER 04/11/2015 Nurse visit FIDEL TURNER WARP HANGER 01/25/2015 Office visit FIDEL TURNER WARP HANGER 02/06/2013 Office visit FIDEL TURNER WARP HANGER 03/24/2011 Office visit Fidel Turner WARP HANGER 09/29/2010 Nurse visit Fidel Turner WARP HANGER 08/20/2009 Office visit Fidel Turner WARP HANGER
--- OUTSIDE RECORDS SUMMARY | 2018-09-11 10:23 | XMS REPORT ---
Author Author Rupal Michel [facility] Address [address] [place], [place] [id number] Care Team Providers Care School Lunch Manager Name Role Phone Rupal Michel PCP Allergies [...] 04/11/2015 [employer] MSD GARDASIL [id number] Intramuscular Left Deltoid 04/12/2015 03/10/2013 63 History [...] Policy Group Number Start Date Aetna Aetna [id number] Friday, 2015 [facility] void October [facility] void October [facility] void Monday, 2010 History of Encounters Visit Date Visit Type Provider 05/15/2016 Office visit Rupal SHOOK 04/30/2016 Office visit Rupal SHOOK 11/06/[address] Douglas Huang MD 10/23/[address] Douglas Huang MD 08/26/[address] Douglas Huang MD 08/15/2015 Laboratory FIDEL TURNER ADULT BASIC EDUCATION MANAGER 08/12/2015 Office visit FIDEL UTRNER ADULT BASIC EDUCATION MANAGER 08/09/[address] Douglas Huang MD 08/09/[address] Douglas Huang MD 07/10/2015 Office visit FIDEL TURNER ADULT BASIC EDUCATION MANAGER 06/24/2015 Office visit 06/24/2015 Office visit Jessica Chakraborty ADULT BASIC EDUCATION MANAGER 04/11/2015 Nurse visit FIDEL TURNER ADULT BASIC EDUCATION MANAGER 01/25/2015 Office visit FIDEL TURNER ADULT BASIC EDUCATION MANAGER 02/06/2013 Office visit FIDEL TURNER ADULT BASIC EDUCATION MANAGER 03/24/2011 Office visit Fidel Turner ADULT BASIC EDUCATION MANAGER 09/29/2010 Nurse visit Fidel Turner ADULT BASIC EDUCATION MANAGER 08/20/2009 Office visit Fidel Turner ADULT BASIC EDUCATION MANAGER
--- OUTSIDE RECORDS SUMMARY | 2018-09-11 10:23 | XMS REPORT ---
Author Author Rupal Michel [facility] Address [address] [place], [place] [id number] Care Team Providers Care Instructional Aide Name Role Phone Rupal Michel PCP Allergies [...] 04/11/2015 [employer] MSD GARDASIL [id number] Intramuscular Left Deltoid 04/12/2015 03/10/2013 63 History [...] Policy Group Number Start Date Aetna Aetna [id number] Friday, 2015 [facility] void October [facility] void October [facility] void Monday, 2010 History of Encounters Visit Date Visit Type Provider 05/15/2016 Office visit Rupal SHOOK 04/30/2016 Office visit Rupal SHOOK 11/06/[address] Douglas Huang MD 10/23/[address] Douglas Huang MD 08/26/[address] Douglas Huang MD 08/15/2015 Laboratory FIDEL TURNER DIRECTOR OF PLANNING 08/12/2015 Office visit FIDEL TURNER DIRECTOR OF PLANNING 08/09/[address] Douglas Huang MD 08/09/[address] Douglas Huang MD 07/10/2015 Office visit FIDEL TURNER DIRECTOR OF PLANNING 06/24/2015 Office visit 06/24/2015 Office visit Jessica Chakraborty DIRECTOR OF PLANNING 04/11/2015 Nurse visit FIDEL TURNER DIRECTOR OF PLANNING 01/25/2015 Office visit FIDEL TURNER DIRECTOR OF PLANNING 02/06/2013 Office visit FIDEL TURNER DIRECTOR OF PLANNING 03/24/2011 Office visit Fidel Turner DIRECTOR OF PLANNING 09/29/2010 Nurse visit Fidel Turner DIRECTOR OF PLANNING 08/20/2009 Office visit Fidel Turner DIRECTOR OF PLANNING
--- OUTSIDE RECORDS SUMMARY | 2018-09-11 10:24 | XMS REPORT ---
Author Douglas Gloria [facility] Address [address] [place], [place] [id number] Care Team Providers Care E Tailer Name Role Phone Douglas Huang PCP Allergies [...] 84 days lamotrigine 100 mg oral tablet 10/09/2015 04/06/2016 take 1 tablet by oral route daily for 90 days [...] daily before a meal for 30 days Name Start Date Expiration [...] HC BMI BSA BMI Percentile O2 Sat(%) 10/23/2015 4:33:00 PM 120 mmHg 84 mmHg [...] 12:00 AM METABOLIC PANEL TOTAL CA Returned 10/23/2015 12:00 AM AMINO ACIDS SINGLE QUANT [...] 04/11/2015 [employer] MSD GARDASIL [id number] Intramuscular Left Deltoid 04/12/2015 03/10/2013 63 History [...] 4:36PM Reflux gastritis Oct 23 2015 4:36PM Payers Insurance Name Company Name Plan Name Plan Number Policy Number Policy Group Number Start Date Aetna Aetna [id number] Friday, 2015 [facility] void October [facility] void October [facility] void Monday, 2010 History of Encounters Visit Date Visit Type Provider 10/23/[address] Douglas Huang MD 08/26/[address] Douglas Huang MD 08/15/2015 Laboratory FIDEL TURNER TWISTING FRAME FIXER 08/12/2015 Office visit FIDEL TURNER TWISTING FRAME FIXER 08/09/[address] Douglas Huang MD 08/09/[address] Douglas Huang MD 07/10/2015 Office visit FIDEL TURNER TWISTING FRAME FIXER 06/24/2015 Office visit Jessica Chakraborty TWISTING FRAME FIXER 04/11/2015 Nurse visit FIDEL TURNER TWISTING FRAME FIXER 01/25/2015 Office visit FIDEL TURNER TWISTING FRAME FIXER 02/06/2013 Office visit FIDEL TURNER TWISTING FRAME FIXER 03/24/2011 Office visit Fidel Turner TWISTING FRAME FIXER 09/29/2010 Nurse visit Fidel Turner TWISTING FRAME FIXER 08/20/2009 Office visit Fidel Turner TWISTING FRAME FIXER
--- OUTSIDE RECORDS SUMMARY | 2018-09-11 10:24 | XMS REPORT ---
Author Author Rupal Michel [facility] Address [address] [place], [place] [address] Care Team Providers Care Housing Property Manager Name Role Phone Rupal Michel PCP [...] 04/11/2015 [employer] MSD GARDASIL [id number] Intramuscular Left Deltoid 04/12/2015 03/10/2013 63 History [...] Policy Group Number Start Date Aetna Aetna [id number] Friday, 2015 [facility] void October [facility] void October [facility] void Monday, 2010 History of Encounters Visit Date Visit Type Provider 05/27/2016 Office visit Rupal SHOOK 05/15/2016 Office visit Rupal SHOOK 04/30/2016 Office visit Rupal SHOOK 11/06/[address] Douglas Huang MD 10/23/[address] Douglas Huang MD 08/26/[address] Douglas Huang MD 08/15/2015 Laboratory FIDEL TURNER REGULATORY COMPLIANCE OFFICER 08/12/2015 Office visit FIDEL TURNER REGULATORY COMPLIANCE OFFICER 08/09/[address] Douglas Huang MD 08/09/[address] Douglas Huang MD 07/10/2015 Office visit FIDEL TURNER REGULATORY COMPLIANCE OFFICER 06/24/2015 Office visit 06/24/2015 Office visit Jessica Chakraborty REGULATORY COMPLIANCE OFFICER 04/11/2015 Nurse visit FIDEL TURNER REGULATORY COMPLIANCE OFFICER 01/25/2015 Office visit FIDEL TURNER REGULATORY COMPLIANCE OFFICER 02/06/2013 Office visit FIDEL TURNER REGULATORY COMPLIANCE OFFICER 03/24/2011 Office visit Fidel Turner REGULATORY COMPLIANCE OFFICER 09/29/2010 Nurse visit Fidel Turner APRN 08/20/2009 Office visit Fidel Turner APRN
--- OUTSIDE RECORDS SUMMARY | 2018-09-11 10:25 | XMS REPORT ---
Author Author Jessica Chakraborty [facility] Address [address] [place], [place] [address] Care Team Providers Care Electrical Troubleshooter Name Role Phone Jessica Chakraborty PCP Allergies [...] 04/11/2015 [employer] MSD GARDASIL [id number] Intramuscular Left Deltoid 04/12/2015 03/10/2013 63 History [...] Policy Group Number Start Date Aetna Aetna [id number] Friday, 2015 [facility] void October [facility] void October [facility] void Monday, 2010 History of Encounters Visit Date Visit Type Provider 12/03/2017 Office visit Jessica Chakraborty DIRECTOR OF RETAIL 10/13/2016 Office visit Jessica Chakraborty DIRECTOR OF RETAIL 09/08/[address] Douglas Huang MD 05/27/2016 Office visit Rupal SHOOK 05/15/2016 Office visit Rupal SHOOK 04/30/2016 Office visit Rupal SHOOK 11/06/[address] Douglas Huang MD 10/23/[address] Douglas Huang MD 08/26/[address] Douglas Huang MD 08/15/2015 Laboratory FIDEL TURNER DIRECTOR OF RETAIL 08/12/2015 Office visit FIDEL TURNER DIRECTOR OF RETAIL 08/09/[address] Douglas Huang MD 08/09/[address] Douglas Huang MD 07/10/2015 Office visit FDIEL TURNER DIRECTOR OF RETAIL 06/24/2015 Office visit 06/24/2015 Office visit Jessica Chakraborty DIRECTOR OF RETAIL 04/11/2015 Nurse visit FIDEL TURNER DIRECTOR OF RETAIL 01/25/2015 Office visit FIDEL TURNER DIRECTOR OF RETAIL 02/06/2013 Office visit FIDEL TURNER DIRECTOR OF RETAIL 03/24/2011 Office visit Fidel Turner DIRECTOR OF RETAIL 09/29/2010 Nurse visit Fidel Turner DIRECTOR OF RETAIL 08/20/2009 Office visit Fidel Turner APRN
--- OUTSIDE RECORDS SUMMARY | 2018-09-11 10:25 | XMS REPORT | Continuity of Care Document ---
Author Author [facility] Organization [facility] Address Unknown Phone Unavailable Allergies There is no data. Medications There is no data. Problems There is no data. Procedures There is no data. Results There is no data. Encounters ACCT No. Visit Date/Time Discharge Status Pt. Type Provider Facility Loc./Unit Complaint [id number] 07/22/2018 11:19:41 07/22/2018 23:59:59 CLS Outpatient Jessica Chakraborty [id number] 12/03/2017 12:03:14 12/03/2017 23:59:59 CLS Outpatient Jessica Chakraborty [id number] 10/13/2016 16:44:33 10/13/2016 23:59:59 CLS Outpatient Jessica Chakraborty [id number] 09/08/2016 17:57:41 09/08/2016 23:59:59 CLS Outpatient Douglas Huang [id number] 09/08/2016 17:10:13 09/08/2016 23:59:59 CLS Outpatient Douglas Huang [id number] 05/27/2016 17:15:45 05/27/2016 23:59:59 CLS Outpatient Rupal Michel [id number] 05/15/2016 11:27:07 05/15/2016 23:59:59 CLS Outpatient Rupal Michel [id number] 04/30/2016 14:04:17 04/30/2016 23:59:59 CLS Outpatient Rupal Michel [id number] 11/06/2015 17:32:50 11/06/2015 23:59:59 CLS Outpatient Douglas Huang [id number] 10/23/2015 17:09:55 10/23/2015 23:59:59 CLS Outpatient Douglas Huang [id number] 08/26/2015 17:22:01 08/26/2015 23:59:59 CLS Outpatient Douglas Huang [id number] 08/15/2015 11:31:59 08/15/2015 23:59:59 CLS Outpatient RADHA TURNER [id number] 08/12/2015 16:14:15 08/12/2015 23:59:59 CLS Outpatient RADHA TURNER [id number] 08/09/2015 17:01:04 08/09/2015 23:59:59 CLS Outpatient Douglas Huang [id number] 08/09/2015 15:57:18 08/09/2015 23:59:59 CLS Outpatient Douglas Huang [id number] 07/10/2015 15:33:16 07/10/2015 23:59:59 CLS Outpatient RADHA TURNER [id number] 06/24/2015 16:48:59 06/24/2015 23:59:59 CLS Outpatient Jessica Chakraborty [id number] 06/03/2015 21:59:14 06/03/2015 23:59:59 CLS Outpatient RADHA TURNER [id number] 01/25/2015 10:01:01 01/25/2015 23:59:59 CLS Outpatient RADHA TURNER
--- OUTSIDE RECORDS SUMMARY | 2018-09-11 10:25 | XMS REPORT ---
Author Author Rupal Michel [facility] Address [address] [place], [place] [address] Care Team Providers Care Painter Hand Name Role Phone Rupal Michel PCP Allergies [...] 04/11/2015 [employer] MSD GARDASIL [id number] Intramuscular Left Deltoid 04/12/2015 03/10/2013 63 History [...] Policy Group Number Start Date Aetna Aetna [id number] Friday, 2015 [facility] void October [facility] void October [facility] void Monday, 2010 History of Encounters Visit Date Visit Type Provider 05/15/2016 Office visit Rupal SHOOK 04/30/2016 Office visit Rupal SHOOK 11/06/[address] Douglas Huang MD 10/23/[address] Douglas Huang MD 08/26/[address] Douglas Huang MD 08/15/2015 Laboratory FIDEL TURNER STEEL HANGER 08/12/2015 Office visit FIDEL TURNER STEEL HANGER 08/09/[address] Douglas Huang MD 08/09/[address] Douglas Huang MD 07/10/2015 Office visit FIDEL TURNER STEEL HANGER 06/24/2015 Office visit 06/24/2015 Office visit Jessica Chakraborty STEEL HANGER 04/11/2015 Nurse visit FIDEL TURNER STEEL HANGER 01/25/2015 Office visit FIDEL TURNER STEEL HANGER 02/06/2013 Office visit FIDEL TURNER STEEL HANGER 03/24/2011 Office visit Fidel Turner STEEL HANGER 09/29/2010 Nurse visit Fidel Turner STEEL HANGER 08/20/2009 Office visit Fidel Turner STEEL HANGER
[2018-09-11] MEDS ORDERED: L.E.T. SYRINGE 5 ML MM STA (10:30)
[2018-09-11] MEDS ORDERED: TETANUS,DIPTH,PERTUSS P/F (BOOSTRIX) 0.5 ML VIAL IM STA (10:30)
[2018-09-11] MEDS ORDERED: LIDOCAINE 1% INJ 20 ML 20 ML VIAL INJ ONE (11:15)
--- NOTE | 2018-09-11 11:17 | ED Integumentary General ---
General Chief Complaint: Laceration Stated Complaint: LACERATION FOREHEAD Nursing Triage Note: ARRIVED VIA AMB TO ROOM 06. STATES SHE RAN INTO A WALL THIS MORNING AROUND 0100 ET SHE HAD BEEN DRIKNING. LACERATION ABOVE RIGHT BROW NOTED. History of Present Illness Date Seen by Provider: Sep 11, 2018 Time Seen by Provider: 11:10 Initial Comments 22-year-old female reports falling into a wall after consuming alcohol last evening. The injury occurred at 0100 this morning. She is unable to give much history related to this, due to alcohol consumption, however her friend is present and was with her within minutes after the injury. She denies any loss of consciousness, seizure activity, or vomiting since the injury. She reports that her friend has been acting like herself. She is eating and drinking this morning with no nausea or vomiting. She does complain of a mild frontal headache, she denies any neck pain or other areas of discomfort related to the fall. Timing/Duration: this morning Location: face (above right eyebrow) Associated Symptoms: headache (mild frontal); No malaise, No nasal congestion, No numbness, No rash Allergies and Home Medications Allergies Coded Allergies: azithromycin (Verified Allergy, Unknown, 09/11/18) Home Medications Cephalexin 500 Mg Capsule, 500 MG PO TID Prescribed by: PATRICIA NO on 09/11/18 1225 Patient Home Medication List Home Medication List Reviewed: Yes Review of Systems Review of Systems Constitutional: no symptoms reported, see HPI Musculoskeletal: see HPI Skin: see HPI, lesions (laceration above right eyebrow.) Psychiatric/Neurological: See HPI, Headache All Other Systems Reviewed Negative Unless Noted: Yes Past Petiaob-Oqncia-Vnvxjc Hx Patient Social History Alcohol Use: Occasionally Uses Recreational Drug Use: No Smoking Status: Never a Smoker Recent Foreign Travel: No Contact w/Someone Who Travel: No Recent Infectious Disease Expo: No Recent Hopitalizations: No Immunizations Up To Date Tetanus Booster (TDap): Unknown Seasonal Allergies Seasonal Allergies: No Past Medical History Surgeries: No Respiratory: No Cardiac: No Neurological: No : No Last Menstrual Period: Sep 11, 2018 Genitourinary: No Gastrointestinal: No Musculoskeletal: No Endocrine: No HEENT: No Cancer: No Psychosocial: Yes Anxiety, Depression Integumentary: No Physical Exam Vital Signs Vital Signs - First Documented 09/11/18 10:15 Temp 98.0 Pulse 84 Resp 16 B/P (MAP) 130/91 (104) Pulse Ox 100 O2 Delivery Room Air Capillary Refill : Less Than 3 Seconds General Appearance: WD/WN, no apparent distress HEENT: PERRL/EOMI, normal ENT inspection, TMs normal, pharynx normal Neck: non-tender, full range of motion, supple, normal inspection Cardiovascular: normal peripheral pulses, regular rate, rhythm, no murmur Respiratory: chest non-tender, lungs clear, normal breath sounds Gastrointestinal: normal bowel sounds, non tender, soft Neurologic/Psychiatric: cosmetics counter manager II-XII nml as tested (grossly intact), no motor/ sensory deficits, alert, normal mood/affect, oriented x 3 Skin: normal color, warm/dry Skin Problem Location: face (2.5 cm laceration above right eyebrow, no active bleeding. Through to muscle) Procedures/Interventions Wound Location: Face (above right eyebrow) Wound Length (cm): 2.5 Wound's Depth, Shape: into muscle, linear Wound Explored: clean Irrigated w/ Saline (ccs): 500 Betadine Prep?: Yes Anesthesia: 1% Lidocaine Volume Anesthetic (ccs): 5 Suture: Ethlion Suture Size: 5-0 Number of Sutures: 4 Sterile Dressing Applied?: Yes Progress Patient tolerated procedure well, wound approximated nicely. Zackery dressing applied. Progress/Results/Core Measures Results/Orders My Orders Orders - PATRICIA NO Lidocaine 1% Inj 20 Ml (Xylocaine 1% Inj (09/11/18 11:15) Medications Given in ED Current Medications Medications Dose Ordered Sig/Rusty Route Start Time Stop Time Status Last Admin Dose Admin Lidocaine HCl 20 ml ONCE ONCE INJ 09/11/18 11:15 09/11/18 11:16 DC 09/11/18 11:20 20 ML Vital Signs/I&O 09/11/18 09/11/18 10:15 12:33 Temp 98.0 Pulse 84 83 Resp 16 16 B/P (MAP) 130/91 (104) 127/81 (96) Pulse Ox 100 96 O2 Delivery Room Air Blood Pressure Mean: 104 Departure Impression Primary Impression: Laceration of face Qualified Codes: S01.81XA - Laceration without foreign body of other part of head, initial encounter Additional Impressions: Fall Qualified Codes: W19.XXXA - Unspecified fall, initial encounter Minor head injury without loss of consciousness Qualified Codes: S09.90XA - Unspecified injury of head, initial encounter Disposition: 01 HOME, SELF-CARE Condition: Improved Departure-Patient Inst. Decision time for Depature: 12:00 Referrals: NO,LOCAL PHYSICIAN (PCP/Family) Primary Care Physician Patient Instructions: Laceration Repair With Stitches (DC), Minor Head Injury ( DC) Add. Discharge Instructions: Keep wound clean and dry. Ice pack 20 min every 2 hours while awake. You may take Tylenol 650 mg every 6 hours for headache or pain. You may shower tomorrow, do not allow water directly into the wound. After showering, clean the area with peroxide. Reapply bandaid, when out of house, may leave open to air when home. Return to emergency department or your local primary care provider in 5 days for suture check and probable removal of sutures. Take antibiotics as prescribed. Follow-up at [facility] or return to emergency department for wound check, as needed or persistent headache. Return immediately for any changes in mental status, persistent nausea and vomiting, seizure activity or other concerns. All discharge instructions reviewed with patient and/or family. Voiced understanding. Scripts Cephalexin (Keflex) 500 Mg Capsule 500 MG PO TID, #15 CAP 0 Refills Prov: PATRICIA NO 09/11/18 Copy Copies To 1: ESTELITA ESTRELLA MD, AMY ARNP Sep 11, 2018 11:17
[2018-09-11] MEDS ORDERED: CEPH-507 PO (12:25)
[2018-09-11 12:33] VITALS: BP 127/81
== END 2018-09-11 12:33 | disposition home or self-care (01) ==
LOC: ER 10:03
DX: S09.90XA Unspecified injury of head, initial encounter (principal); S01.81XA Laceration without foreign body of other part of head, initial encounter; F10.10 Alcohol abuse, uncomplicated; F41.9 Anxiety disorder, unspecified; F32.9 Major depressive disorder, single episode, unspecified; Z88.0 Allergy status to penicillin; W22.01XA Walked into wall, initial encounter
CPT/HCPCS: 12011; 90715

== ENCOUNTER → 2018-12-14 | Outpatient (CLI) | payer OTHER ==
[~2018-12-14] MED LIST: GADOBUTROL 10 MMOL/10 ML (GADAVIST) VIAL IV ONE
--- NOTE | 2018-12-14 13:37 | Diagnostic Imaging Report ---
PROCEDURE: MR imaging of the brain with and without contrast. TECHNIQUE: Multiplanar, multisequence MR imaging of the brain was performed with and without contrast. INDICATION: Migraine headaches with new onset blurred vision. COMPARISON: No prior studies are available for comparison. FINDINGS: The ventricles and sulci are within normal limits. No diffusion restriction is identified. Normal expected flow-voids within the carotid siphons are seen. No midline shift is seen. No acute intra-axial or extra-axial hemorrhage is detected. Corpus callosum and brainstem are unremarkable. The sella and parasellar structures are unremarkable. No abnormal enhancement is seen following contrast administration. IMPRESSION: Unremarkable pre-and postcontrast MRI of the brain. Dictated by: Dictated on workstation # [id number]
== END ==
LOC: RAD 12:22
PROVIDERS: ATTEND Nurse Practitioner Family
DX: H53.8 Other visual disturbances (principal); G43.909 Migraine, unspecified, not intractable, without status migrainosus
CPT/HCPCS: 70553

== ENCOUNTER → 2018-12-19 | Outpatient (CLI) | payer OTHER ==
[~2018-12-19] MED LIST changes: +CEPH-507 PO; -GADOBUTROL 10 MMOL/10 ML (GADAVIST) VIAL IV ONE
--- NOTE | 2018-12-19 14:14 | Diagnostic Imaging Report ---
PROCEDURE: CT chest, abdomen, and pelvis without contrast. TECHNIQUE: Multiple contiguous axial images were obtained through the chest, abdomen, and pelvis without the use of intravenous contrast. INDICATION: Upper abdominal pain. Nausea and vomiting. Diarrhea. Fatigue. Weakness. COMPARISON: None. FINDINGS: Chest: Lungs are clear. No endobronchial lesions. No pleural effusion or pneumothorax. No mediastinal, hilar or axillary lymphadenopathy. Normal heart size. No pericardial effusion. Normal caliber thoracic aorta and central pulmonary arteries. Osseous structures are intact. No suspicious osteoblastic or lytic lesions. Abdomen and pelvis: The liver, gallbladder, pancreas, spleen, adrenals, kidneys, collecting systems and bladder are negative on this non-contrast exam. IUD. Normal appendix. No free intraperitoneal air or fluid. No lymphadenopathy. No evidence of bowel obstruction. Osseous structures are intact. No suspicious osteoblastic or lytic lesions. IMPRESSION: Negative noncontrast chest, abdomen and pelvis CT. Dictated by: Dictated on workstation # [id number]
== END ==
LOC: RAD 09:12
PROVIDERS: ATTEND Nurse Practitioner Family
DX: R10.10 Upper abdominal pain, unspecified (principal); R11.2 Nausea with vomiting, unspecified; R53.1 Weakness; R53.83 Other fatigue; R19.7 Diarrhea, unspecified; Z97.5 Presence of (intrauterine) contraceptive device
CPT/HCPCS: 71250; 74176

== ENCOUNTER 2019-12-05 04:17 | Emergency (ER) | payer OTHER ==
[~2019-12-05] VITALS: Ht 170 cm; Wt 88.0 kg
[2019-12-05] MEDS ORDERED: ONDANSETRON 4 MG/2 ML (SDV) Z0FRAN IVP ONE (04:45)
--- NOTE | 2019-12-05 04:47 | ED General ---
General Chief Complaint: Cough/Cold/Flu Symptoms Stated Complaint: COUGH UP BLOOD,POSS FLU Nursing Triage Note: Pt ambulates to [facility] with c/o aches, fever, cough since 12/02. Pt states she went to [facility] and they told her she was Flu B positive without testing her. Pt states she took a cough/cold medicine yesterday and then started coughing early this morning when she noticed some blood in her mucous. Nursing Sepsis Screen: Possible Severe Sepsis Risk Source of Information: Patient Exam Limitations: No Limitations History of Present Illness Date Seen by Provider: Dec 05, 2019 Time Seen by Provider: 04:25 Initial Comments This 23-year-old young lady presents to the emergency room with primary complaint of coughing up blood. She has been ill since December 02. She was seen at the [facility] yesterday and was prescribed Tamiflu. Influenza screen was not performed but her symptoms were suspicious enough that influenza was suspected. Patient elected to not start Tamiflu after discussing with her mother. She has had myalgia, cough, chest discomfort, and nausea. About 20 minutes prior to arrival she coughed up a small amount of blood mixed up in her sputum and then spit some after that as well. She has anxiety and depression but denies any other health problems. She denies as she has an IUD. Allergies and Home Medications Allergies Coded Allergies: azithromycin (Verified Allergy, Unknown, 09/11/18) Home Medications Cephalexin 500 Mg Capsule, 500 MG PO TID Prescribed by: PATRICIA NO on 09/11/18 1225 Patient Home Medication List Home Medication List Reviewed: Yes Review of Systems Review of Systems Constitutional: see HPI EENTM: see HPI Respiratory: see HPI Cardiovascular: no symptoms reported Gastrointestinal: see HPI Genitourinary: no symptoms reported : No Musculoskeletal: see HPI Skin: no symptoms reported Psychiatric/Neurological: No Symptoms Reported Hematologic/Lymphatic: See HPI Immunological/Allergic: no symptoms reported Past Wnrspry-Gslccg-Owadef Hx Patient Social History Alcohol Use: Occasionally Uses Recreational Drug Use: No Smoking Status: Never a Smoker Recent Foreign Travel: No Contact w/Someone Who Travel: No Recent Infectious Disease Expo: No Recent Hopitalizations: No Physical Abuse: No Sexual Abuse: No Mistreated: No Fear: No Immunizations Up To Date Tetanus Booster (TDap): Unknown Seasonal Allergies Seasonal Allergies: No Past Medical History Surgeries: Yes (foot and nose surgery) Orthopedic Respiratory: No Cardiac: No Neurological: No : No Last Menstrual Period: Nov 21, 2019 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 oz. 81.305774ei; 30.00 BMI Method:Stated General Appearance: No Apparent Distress, WD/WN HEENT: PERRL/EOMI, TMs Normal, Normal ENT Inspection, Pharynx Normal Neck: Normal Inspection Respiratory: Lungs Clear, Normal Breath Sounds, No Accessory Muscle Use, No Respiratory Distress Cardiovascular: No Edema, No Murmur, Tachycardia (mild, regular) Extremity: Normal Inspection, No Pedal Edema Neurologic/Psychiatric: Alert, Oriented x3, No Motor/Sensory Deficits, Normal Mood/Affect, assistant terminal manager II-XII Norm as Tested Skin: Normal Color, Warm/Dry Procedures/Interventions Suture Size: 5-0 Progress/Results/Core Measures Suspected Sepsis Recent Fever Within 48 Hours: Yes Infection Criteria Present: Suspected New Infection New/Unexplained Altered Menta: No Sepsis Screen: Possible Severe Sepsis Risk SIRS Temperature: Pulse: 96 Respiratory Rate: 20 Laboratory Tests 12/05/19 04:39: White Blood Count 6.8 Blood Pressure 137 /97 Mean: 110 Laboratory Tests 12/05/19 04:39: Creatinine 0.83, INR Comment 1.0, Platelet Count 294, Total Bilirubin 0.2 Results/Orders Lab Results Laboratory Tests Test 12/05/19 04:39 Range/Units White Blood Count 6.8 4.3-11.0 10^3/uL Red Blood Count 4.74 4.35-5.85 10^6/uL Hemoglobin 14.1 11.5-16.0 G/DL Hematocrit 43 35-52 % Mean Corpuscular Volume 92 80-99 FL Mean Corpuscular Hemoglobin 30 25-34 PG Mean Corpuscular Hemoglobin Concent 33 32-36 G/DL Red Cell Distribution Width 14.0 10.0-14.5 % Platelet Count 294 130-400 10^3/uL Mean Platelet Volume 9.2 7.4-10.4 FL Neutrophils (%) (Auto) 67 42-75 % Lymphocytes (%) (Auto) 17 12-44 % Monocytes (%) (Auto) 16 H 0-12 % Eosinophils (%) (Auto) 0 0-10 % Basophils (%) (Auto) 0 0-10 % Neutrophils # (Auto) 4.6 1.8-7.8 X 10^3 Lymphocytes # (Auto) 1.1 1.0-4.0 X 10^3 Monocytes # (Auto) 1.1 H 0.0-1.0 X 10^3 Eosinophils # (Auto) 0.0 0.0-0.3 10^3/uL Basophils # (Auto) 0.0 0.0-0.1 10^3/uL Prothrombin Time 13.5 12.2-14.7 SEC INR Comment 1.0 0.8-1.4 Activated Partial Thromboplast Time 33 24-35 SEC Sodium Level 135 135-145 MMOL/L Potassium Level 3.9 3.6-5.0 MMOL/L Chloride Level 105 98-107 MMOL/L Carbon Dioxide Level 20 L 21-32 MMOL/L Anion Gap 10 5-14 MMOL/L Blood Urea Nitrogen 9 7-18 MG/DL Creatinine 0.83 0.60-1.30 MG/DL Estimat Glomerular Filtration Rate > 60 BUN/Creatinine Ratio 11 Glucose Level 101 70-105 MG/DL Calcium Level 9.0 8.5-10.1 MG/DL Corrected Calcium 8.9 8.5-10.1 MG/DL Total Bilirubin 0.2 0.1-1.0 MG/DL Aspartate Amino Transf (AST/SGOT) 31 5-34 U/L Alanine Aminotransferase (ALT/SGPT) 29 0-55 U/L Alkaline Phosphatase 96 40-136 U/L Total Protein 7.1 6.4-8.2 GM/DL Albumin 4.1 3.2-4.5 GM/DL My Orders Orders - KENNETH BRODY MD Cbc With Automated Diff (12/05/19 04:37) Comprehensive Metabolic Panel (12/05/19 04:37) Protime With Inr (12/05/19 04:37) Partial Thromboplastin Time (12/05/19 04:37) Chest Pa/Lat (2 View) (12/05/19 04:37) Ed Iv/Invasive Line Start (12/05/19 04:37) Ondansetron Injection (Zofran Injectio (12/05/19 04:45) Medications Given in ED Current Medications Medications Dose Ordered Sig/Rusty Route Start Time Stop Time Status Last Admin Dose Admin Ondansetron HCl 4 mg ONCE ONCE IVP 12/05/19 04:45 12/05/19 04:47 DC 12/05/19 04:43 4 MG Vital Signs/I&O 12/05/19 12/05/19 04:26 04:26 Temp 38.2 Pulse 96 Resp 20 B/P (MAP) 137/97 (110) Pulse Ox 97 O2 Delivery Room Air Room Air Capillary Refill : Less Than 3 Seconds Blood Pressure Mean: 110 Progress Note : Progress Note Workup was unremarkable. Chest x-ray showed no evidence of pneumonia. Departure Impression Primary Impression: Flu-like symptoms Additional Impression: Hemoptysis Disposition: HOME, SELF-CARE Condition: Stable Departure-Patient Inst. Decision time for Depature: 05:22 Referrals: ALEXIS MANCILLA MD (PCP) Primary Care Physician CA CAPONE APRN (Family) Primary Care Physician Patient Instructions: Coughing up Blood, Flu Add. Discharge Instructions: The blood in your sputum is likely due to acute viral illness such as influenza. Monitor this closely. If the problem is persistent or worsens, return to care. Stay well hydrated with plenty of clear liquids. All discharge instructions reviewed with patient and/or family. Voiced understanding. KENNETH BRODY MD Dec 05, 2019 04:46
[2019-12-05 04:48] LABS: BASOPHILS % (AUTO) 0 % (0-10); EOSINOPHILS % (AUTO) 0 % (0-10); HEMATOCRIT 43 % (35-52); HEMOGLOBIN 14.1 G/DL (11.5-16.0); LYMPHOCYTES # (AUTO) 1.1 X 10^3 (1.0-4.0); LYMPHOCYTES % (AUTO) 17 % (12-44); MEAN CORPUSCULAR HEMOGLOBIN 30 PG (25-34); MEAN CORPUSCULAR HGB CONC 33 G/DL (32-36); MEAN CORPUSCULAR VOLUME 92 FL (80-99); MEAN PLATELET VOLUME 9.2 FL (7.4-10.4); MONOCYTES # (AUTO) 1.1 X 10^3 (0.0-1.0); MONOCYTES % (AUTO) 16 % (0-12); NEUTROPHILS # (AUTO) 4.6 X 10^3 (1.8-7.8); NEUTROPHILS % (AUTO) 67 % (42-75); PLATELET COUNT 294 10^3/uL (130-400); WHITE BLOOD COUNT 6.8 10^3/uL (4.3-11.0)
[2019-12-05 05:01] LABS: PROTHROMBIN TIME PATIENT 13.5 SEC (12.2-14.7)
[2019-12-05 05:07] LABS: ALANINE AMINOTRANSFERASE 29 U/L (0-55); ALBUMIN 4.1 GM/DL (3.2-4.5); ALKALINE PHOSPHATASE 96 U/L (40-136); BILIRUBIN,TOTAL 0.2 MG/DL (0.1-1.0); BUN/CREATININE RATIO 11; CARBON DIOXIDE 20 MMOL/L (21-32); CHLORIDE 105 MMOL/L (98-107); CREATININE SERUM 0.83 MG/DL (0.60-1.30); GFR ESTIMATED > 60; GLUCOSE 101 MG/DL (70-105); POTASSIUM 3.9 MMOL/L (3.6-5.0); SODIUM 135 MMOL/L (135-145); TOTAL PROTEIN 7.1 GM/DL (6.4-8.2)
[2019-12-05 05:29] VITALS: BP 137/97
--- NOTE | 2019-12-05 06:31 | Diagnostic Imaging Report ---
CLINICAL INDICATION: Patient with cough and fever. EXAM: Chest x-ray PA and lateral views. COMPARISONS: None. FINDINGS: Lungs/pleura: Lungs are clear. There is no pneumothorax. There is no pleural effusion. Mediastinum: Unremarkable. Pulmonary vasculature: Unremarkable. Heart: Unremarkable. Bones/extrathoracic soft tissue: Unremarkable. IMPRESSION: There is no radiographic evidence of acute cardiopulmonary process. Dictated by: Dictated on workstation # [id number]
--- OUTSIDE RECORDS SUMMARY | 2019-12-14 02:04 | XMS REPORT ---
Author Author Eliana Carlos [facility] Address [address] [place], [place] [id number] Care Team Providers Care Civil Drafter Name Role Phone Lucinda Carlos PCP Allergies and Adverse Reactions Name Reaction Notes Zithromax hives Plan of Treatment Not available. Medications Active Name Start Date Estimated Completion Date SIG Co mments Forfivo XL 450 mg oral tablet extended release 24 hr 09/21/2016 TAKE 1 TABLET BY MOUTH DAILY lamotrigine 100 mg oral tablet 10/15/2016 T LASHA 1 TABLET BY ORAL ROUTE DAILY FOR 90 DAYS fluoxetine 60 mg oral tablet clyde e 1 tablet (60 mg) by oral route once daily in the morning Name Start Date Expiration Date SIG Comments Zofran ODT 4 mg oral tablet,disintegrating 02/06/2013 dissolve 1-2 tablets by oral route 3 times a day as needed amoxicillin 875 mg oral tablet 01/25/2015 02/04/2015 t lasha 1 tablet (875 mg) by oral route every 12 hours for 10 days Macrobid 100 mg oral capsule 06/24/2015 07/01/2015 clyde e 1 capsule (100 mg) by oral route 2 times per day with food for 7 days lamotrigine 25 mg oral tablet 11/06/2015 01/05/2016 ta ke 3 tablets by oral route daily for 30 days meloxicam 7.5 mg oral tablet 08/15/2018 09/14/2018 clyde e 2 tablets (15 mg) by oral route once daily for 30 days ParaGard T 380A 380 square mm intrauterine intrauterine alexis ce 10/11/2018 10/12/2018 place 1 device by intrauterine route daily for 1 day Discontinued Name Start Date Discontinued Date SIG [...] DS 550 mg oral tablet 08/12/2015 08/26/2015 ta ke 1 tablet (550 mg) by oral route [...] sertraline 100 mg oral tablet 06/22/2016 07/22/2018 TA KE 2 TABLETS BY ORAL ROUTE DAILY FOR 90 DAYS lamotrigine 25 mg oral tablet 10/15/2016 07/22/2018 TA KE THREE(3)TABLETS EVERY DAY Diflucan 150 mg oral tablet 01/27/2017 12/03/2017 take 1 tablet (150 mg) by oral route once Previfem 0.25-35 mg-mcg oral tablet 12/03/2017 11/16/2018 TAKE 1 TABLET BY MOUTH DAILY for 84 days meloxicam 15 mg oral tablet 09/19/2018 10/27/2019 TAKE 1 TABLET BY MOUTH EVERY DAY Problem List Description Status Onset Depression Active Migraine Active Chronic tension-type headache, not intractable Active 05/15/2016 Myofascial pain Active 05/28/2016 Vital Signs Date Time BP-Sys(mm[Hg] BP-Luba(mm[Hg]) HR(bpm) RR(rpm) Temp WT HT HC BMI BSA BMI Percentile O2 Sat(%) 10/27/2019 10:20:00 AM 122 mm[Hg] 76 mm[Hg] 88 {beats}/min 98.8 F 19 4 lbs 67 in 30.3844 kg/m2 2.0396 m2 95 % 11/16/2018 10:11:00 AM 141 mm[Hg] 93 mm[Hg] 99 {beats}/min 98.2 F 189.25 lbs 69 in 27.95 kg/m2 2.04 m2 10/11/2018 1:21:00 PM 140 mm[Hg] 87 mm[Hg] 80 {beats}/min 98.2 F 165 lbs 69 in 24.366 kg/m2 1.9088 m2 07/22/2018 10:40:00 AM 143 mm[Hg] 92 mm[Hg] 76 {beats}/min 98.2 F 179.25 lbs 69 in 26.47 kg/m2 1.99 m2 12/03/2017 11:08:00 AM 129 mm[Hg] 82 mm[Hg] 81 {beats}/min 98.6 F 16 6 lbs 69 in 24.5137 kg/m2 1.9146 m2 10/13/2016 3:54:00 PM 136 mm[Hg] 89 mm[Hg] 103 {beats}/min 19 rpm 98.2 F 148.025 lbs 69 in 21.86 kg/m2 1.81 m2 51.9 % 99 % 09/08/2016 4:56:00 PM 118 mm[Hg] 78 mm[Hg] 81 {beats}/min 20 rpm 97.8 F 147 lbs 69 in 21.7079 kg/m2 1.8017 m2 50.3 % 98 % 05/27/2016 4:25:00 PM 102 mm[Hg] 58 mm[Hg] 107 {beats}/min 14 rpm 98.1 F 147.5 lbs 69 in 21.78 kg/m2 1.80 m2 51.8 % 97 % 05/15/2016 10:53:00 AM 110 mm[Hg] 60 mm[Hg] 91 {beats}/min 20 rpm 97.3 F 147.5 lbs 69 in 21.7817 kg/m2 1.8048 m2 51.9 % 98 % 04/30/2016 1:09:00 PM 102 mm[Hg] 58 mm[Hg] 89 {beats}/min 12 rpm 97 F 149 lbs 69 in 22.00 kg/m2 1.81 m2 54.6 % 99 % 11/06/2015 5:25:00 PM 112 mm[Hg] 68 mm[Hg] 81 {beats}/min 14 rpm 98.1 F 145 lbs 69 in 21.4125 kg/m2 1.7894 m2 48.7 % 99 % 10/23/2015 4:33:00 PM 120 mm[Hg] 84 mm[Hg] 108 {beats}/min 18 rpm 98.1 F 143 lbs 68.5 in 21.43 kg/m2 1.77 m2 49 % 98 % 08/26/2015 4:34:00 PM 110 mm[Hg] 70 mm[Hg] 93 {beats}/min 16 rpm 97.7 F 142 lbs 68.5 in 21.2768 kg/m2 1.7644 m2 47.6 % 98 % 08/12/2015 3:05:00 PM 116 mm[Hg] 68 mm[Hg] 105 {beats}/min 20 rpm 98.5 F 144 lbs 100 % 08/09/2015 3:15:00 PM 115 mm[Hg] 70 mm[Hg] 84 {beats}/min 18 rpm 98.2 F 140 lbs 67 in 21.93 kg/m2 1.73 m2 55.7 % 99 % 07/10/2015 2:37:00 PM 132 mm[Hg] 70 mm[Hg] 78 {beats}/min 16 rpm 97.1 F 143 lbs 66 in 23.0806 kg/m2 1.738 m2 67.7 % 100 % 06/24/2015 4:11:00 PM 137 mm[Hg] 86 mm[Hg] 88 {beats}/min 18 rpm 98.4 F 143 lbs 71 in 19.94 kg/m2 1.80 m2 29.9 % 01/25/2015 9:04:00 AM 102 mm[Hg] 60 mm[Hg] 79 {beats}/min 18 rpm 97.9 F 149 lbs 71 in 20.7811 kg/m2 1.84 m2 43.2 % 99 % 02/06/2013 2:10:00 PM 116 mm[Hg] 78 mm[Hg] 134 {beats}/min 18 rpm 98.4 F 149 lbs 71 in 20.78 kg/m2 1.84 m2 53.6 % 98 % 03/24/2011 11:07:00 AM 118 mm[Hg] 62 mm[Hg] 76 {beats}/min 22 rpm 97.8 F 143 lbs 67 in 22.3967 kg/m2 1.7511 m2 78.9 % 98 % Social History [...] 12:00 AM ECHO EXAM OF ABDOMEN Reviewed 05/27/2016 12:00 AM INJECT TRIGGER POINTS 3/> Reviewed 05/28/2016 12:00 AM HEPATOBILIARY SYSTEM IMAGING [...] 12/03/2017 12:00 AM TRICHOMONAS VAGINALIS AMPLIF Reviewed 10/11/2018 1:29 PM URINE TEST Reviewed 10/11/2018 12:00 AM INSERT INTRAUTERINE DEVICE Reviewed 10/11/2018 12:00 AM Paraguard T380A -INTRAUTERINE COPPER CON TRACEPTIVE Reviewed 10/27/2019 12:00 AM RADEX ANKLE COMPLETE MINIMUM 3 VIEWS Rev iewed 09/29/2010 12:00 AM IMMUNIZATION ADMIN Reviewed 09/29/2010 [...] Description Results 06/24/2015 5:12 PM Test, Urine Negati ve 08/15/2015 2:43 PM GLUCOSE 87.0 mg/dLSODIUM 139 .0 mmol/LPOTASSIUM 4.20 mmol/LCHLORIDE 104.0 mmol/LCO2 24.0 mmol/LBUN 13.0 mg/dLCREATININE 1.0 mg/dLSGOT/AST 19.0 IU/LSGPT/ALT 14.0 IU/LALK PHOS 68.0 IU/LTOTAL PROTEIN 6.80 g/dLALBUMIN 4.10 g/dLTOTAL BILI 0.40 mg/dLCALCIUM 9.90 mg/dLAGE 19 GFR NonAA 72 GFR AA 87 eGFR >60 mL/min/1.73 m2eGFR AA* >60 10/23/2015 6:42 PM WBC 8.3 RBC 4.79 HGB 14.70 g /dLHCT 43.30 %MCV 90.0 fLMCH 30.70 pgMCHC 33.90 g/dLRDW SD 41 RDW CV 12.30 %MPV 9.60 fLPLT 309 NRBC# 0.00 NRBC% 0.0 %NEUT 61.80 %%LYMP 27.50 %%MONO 10.10 %%EOS 0.40 %%BASO 0.20 %#NEUT 5.16 #LYMP 2.29 #MONO 0.84 #EOS 0.03 #BASO 0.02 MANUAL DIFF NOT IND TSH 1.550 uIU/mLVITAMIN D 58.80 ng/mL 05/15/2016 2:22 PM GLUCOSE 79.0 mg/dLSODIUM 135 .0 mmol/LPOTASSIUM 4.60 mmol/LCHLORIDE 103.0 mmol/LCO2 20.0 mmol/LBUN 16.0 mg/dLCREATININE 0.90 mg/dLSGOT/AST 34.0 IU/LSGPT/ALT 33.0 IU/LALK PHOS 86.0 IU/LTOTAL PROTEIN 7.20 g/dLALBUMIN 4.30 g/dLTOTAL BILI 0.50 mg/dLCALCIUM 9.60 mg/dLAGE 20 GFR NonAA 81 GFR AA 98 eGFR >60 mL/min/1.73 m2eGFR AA* >60 WBC 7.5 RBC 4.85 HGB 14.50 g/dLHCT 43.40 %MCV 90.0 fLMCH 29.90 pgMCHC 33.40 g/dLRDW SD 41 RDW CV 12.60 %MPV 9.20 fLPLT 290 NRBC# 0.00 NRBC% 0.0 %NEUT 62.40 %%LYMP 24.90 %%MONO 10.50 %%EOS 1.30 %%BASO 0.80 %#NEUT 4.65 #LYMP 1.86 #MONO 0.78 #EOS 0.10 #BASO 0.06 MANUAL DIFF NOT IND 10/11/2018 1:29 PM Test, Urine Negati ve History Of Immunizations Name Date Admin Mfg Name Mfg Code Trade Name Lot# Route Inj Vis Given Vis Pub CVX HPV 04/11/2015 [employer] MSD GARDASIL [id number] Intramuscul ar Left Deltoid 04/12/2015 03/10/2013 63 History of [...] tension-type headache, not intractable May 15 2016 1 0:55AM Myofascial pain May 27 2016 4:24PM Abdominal pain, unspecified abdominal location May 28 2016 1 1:43AM Severe episode of recurrent major depres sive disorder, without psychotic features Sep 08 2016 4:58PM Routine gynecological examination Oct 13 2016 3:56PM Contraceptive surveillance Oct 13 2016 3:56PM Routine gynecological examination Dec 03 2017 11:11AM Contraceptive management Dec 03 2017 11:11AM Contraceptive education Jul 22 2018 10:41AM Encounter for test with result negative Oct 11 201 8 1:29PM Encounter for insertion of copper IUD Oct 11 2018 1:26PM Checking of intrauterine device Nov 16 2018 10:15AM Nipple discharge Nov 16 2018 10:15AM Acute left ankle pain Oct 27 2019 10:24AM Sprain of anterior talofibular ligament of left ankle, initial encounter Oct 27 2019 10:24AM Payers Insurance Name Company Name Plan Name Plan Number Policy Number Raffy cy Group Number Start Date Aetna Aetna [id number] Wednesday [facility] [address] [facility] void October [facility] [address] [employer] void October [facility] [address] [employer] void Monday, 2010 History of Encounters Visit Date Visit Type Provider 10/27/2019 Office visit Lucinda SMITH 11/16/2018 Office visit Jessica fiore HEALTHCARE NETWORK CONSULTANT 10/11/2018 Office visit Jessica fiore HEALTHCARE NETWORK CONSULTANT 07/22/2018 Office visit Jessica fiore HEALTHCARE NETWORK CONSULTANT 12/03/2017 Office visit Jessica fiore HEALTHCARE NETWORK CONSULTANT 10/13/2016 Office visit Jessica fiore HEALTHCARE NETWORK CONSULTANT 09/08/[address] Douglas Huang MD 05/27/2016 Office visit Rupal SHOOK 05/15/2016 Office visit Rupal SHOOK 04/30/2016 Office visit Rupal SHOOK 11/06/[address] Douglas Huang MD 10/23/[address] Douglas Huang MD 08/26/[address] Douglas Huang MD 08/15/2015 Laboratory FIDEL TURNER HEALTHCARE NETWORK CONSULTANT 08/12/2015 Office visit FIDEL TURNER HEALTHCARE NETWORK CONSULTANT 08/09/[address] Douglas Huang MD 08/09/[address] Douglas Huang MD 07/10/2015 Office visit FIDEL TURNER HEALTHCARE NETWORK CONSULTANT 06/24/2015 Office visit 06/24/2015 Office visit Jessica fiore HEALTHCARE NETWORK CONSULTANT 04/11/2015 Nurse visit FIDEL TURNER HEALTHCARE NETWORK CONSULTANT 01/25/2015 Office visit FIDEL TURNER HEALTHCARE NETWORK CONSULTANT 02/06/2013 Office visit FIDEL TURNER HEALTHCARE NETWORK CONSULTANT 03/24/2011 Office visit Fidel Turner HEALTHCARE NETWORK CONSULTANT 09/29/2010 Nurse visit Fidel Turner HEALTHCARE NETWORK CONSULTANT 08/20/2009 Office visit Fidel Turner HEALTHCARE NETWORK CONSULTANT
--- OUTSIDE RECORDS SUMMARY | 2019-12-14 02:05 | XMS REPORT ---
Author Author Eliana Chakraborty [facility] Address [address] [place], [place] [id number] Care Team Providers Care News Camera Person Name Role Phone Jessica Chakraborty PCP Allergies [...] lamotrigine 100 mg oral tablet 10/15/2016 T JULIETTE 1 TABLET BY ORAL ROUTE DAILY FOR 90 DAYS fluoxetine 60 mg oral tablet clyde e 1 tablet (60 mg) by oral route once daily in the morning meloxicam 15 mg oral tablet 09/19/2018 TAKE 1 TABLET BY MOUTH EVERY DAY Name Start Date Expiration Date SIG Comments Zofran ODT 4 mg oral tablet,disintegrating 02/06/2013 dissolve 1-2 tablets by oral route 3 times a day as needed amoxicillin 875 mg oral tablet 01/25/2015 02/04/2015 t juliette 1 tablet (875 mg) by oral route [...] sertraline 100 mg oral tablet 12/02/2015 05/30/2016 ta ke 2 tablets by oral route daily for 90 days lamotrigine 100 mg oral tablet 04/10/2016 07/09/2016 T JULIETTE 1 TABLET BY ORAL ROUTE DAILY FOR 90 DAYS for 90 days meloxicam 7.5 mg oral tablet 08/15/2018 [...] TABLET BY MOUTH DAILY for 84 days Problem List Description Status Onset Depression Active Migraine Active Chronic tension-type headache, not intractable Active 05/15/2016 Myofascial pain Active 05/28/2016 Vital Signs Date Time BP-Sys(mm[Hg] BP-Luba(mm[Hg]) HR(bpm) RR(rpm) Temp WT HT HC BMI BSA BMI Percentile O2 Sat(%) 11/16/2018 10:11:00 AM 141 mmHg 93 mmHg 99 bpm 98.2 F 189.25 lbs 69 i n 27.9471 kg/m 2.0443 m 10/11/2018 1:21:00 PM 140 mmHg 87 mmHg 80 bpm 98.2 F 165 lbs 69 in 24.37 kg/m2 1.91 m2 07/22/2018 10:40:00 AM 143 mmHg 92 mmHg 76 bpm 98.2 F 179.25 lbs 69 i n 26.47 kg/m2 1.99 m2 12/03/2017 11:08:00 AM 129 mmHg 82 mmHg [...] 20 rpm 97.3 F 147.5 lbs 69 i n 21.7817 kg/m 1.8048 m 51.9 % 98 [...] Paraguard T380A -INTRAUTERINE COPPER CON TRACEPTIVE Reviewed 09/29/2010 12:00 AM IMMUNIZATION ADMIN Reviewed [...] 04/11/2015 [employer] MSD GARDASIL [id number] Intramuscul ar Left Deltoid 04/12/2015 03/10/2013 63 [...] 10:15AM Nipple discharge Nov 16 2018 10:15AM Payers Insurance Name Company Name Plan Name Plan Number Policy Number Raffy cy Group Number Start Date Aetnayeli Mosley [id number] Wednesday [facility] [id number] [facility] void October [facility] [id number] [facility] void October [facility] [id number] [facility] void Monday, 2010 History of Encounters Visit Date Visit Type Provider 11/16/2018 Office visit Jessica Mcneil n HEATING TECHNICIAN 10/11/2018 Office visit Jessica fiore HEATING TECHNICIAN 07/22/2018 Office visit Jessica fiore HEATING TECHNICIAN 12/03/2017 Office visit Jessica fiore HEATING TECHNICIAN 10/13/2016 Office visit Jessica fiore HEATING TECHNICIAN 09/08/[address] Douglas Huang MD 05/27/2016 Office visit Rupal SHOOK 05/15/2016 Office visit Rupal SHOOK 04/30/2016 Office visit Rupal SHOOK 11/06/[address] Douglas Huang MD 10/23/[address] Douglas Huang MD 08/26/[address] Douglas Huang MD 08/15/2015 Laboratory FIDEL TURNER HEATING TECHNICIAN 08/12/2015 Office visit FIDEL TURNER HEATING TECHNICIAN 08/09/[address] Douglas Huang MD 08/09/[address] Douglas Huang MD 07/10/2015 Office visit FIDEL TURNER HEATING TECHNICIAN 06/24/2015 Office visit 06/24/2015 Office visit Jessica fiore HEATING TECHNICIAN 04/11/2015 Nurse visit FIDEL TURNER HEATING TECHNICIAN 01/25/2015 Office visit FIDEL TURNER HEATING TECHNICIAN 02/06/2013 Office visit FIDEL TURNER HEATING TECHNICIAN 03/24/2011 Office visit Fidel Turner HEATING TECHNICIAN 09/29/2010 Nurse visit Fidel Turner HEATING TECHNICIAN 08/20/2009 Office visit Fidel Turner HEATING TECHNICIAN
--- OUTSIDE RECORDS SUMMARY | 2019-12-14 02:05 | XMS REPORT ---
Author Author Eliana Chakraborty [facility] Address [address] [place], [place] [id number] Care Team Providers Care Leasing Consultant Name Role Phone Jessica Chakraborty PCP Allergies [...] 84 days fluoxetine 60 mg oral tablet clyde e 1 tablet (60 mg) by oral route once daily in the morning meloxicam 15 mg oral tablet 09/19/2018 TAKE 1 TABLET BY MOUTH EVERY DAY ParaGard T 380A 380 square mm intrauterine intrauterine alexis ce 10/11/2018 10/12/2018 place 1 device by intrauterine route daily for 1 day Name Start Date Expiration Date SIG Comments [...] oral route once daily for 30 days Discontinued Name Start [...] HC BMI BSA BMI Percentile O2 Sat(%) 10/11/2018 1:21:00 PM 140 mmHg 87 mmHg 80 bpm 98.2 F 165 lbs 69 in 24.366 kg/m 1.9088 m 07/22/2018 10:40:00 AM 143 mmHg 92 mmHg [...] Reviewed 10/11/2018 1:29 PM URINE TEST Reviewed 09/29/2010 12:00 AM IMMUNIZATION ADMIN Reviewed [...] 4.85 HGB 14.50 g/dLHCT 43.40 %MCV 90.0 [facility] pgHC 33.40 g/dLRDW SD 41 RDW CV 12.60 [...] 04/11/2015 [employer] MSD GARDASIL [id number] Intramuscul ar Left Deltoid 04/12/2015 03/10/2013 63 [...] of copper IUD Oct 11 2018 1:26PM Payers Insurance Name Company Name Plan Name Plan Number Policy Number Raffy cy Group Number Start Date Aetna Aetna [id number] Wednesday [facility] [address] [facility] void October [facility] [id number] [facility] void October [facility] [id number] [facility] void Monday, 2010 History of Encounters Visit Date Visit Type Provider 10/11/2018 Office visit Jessica Castrojenny n WHEEL BRAIDER 07/22/2018 Office visit Jessica Mcneil macarena WHEEL BRAIDER 12/03/2017 Office visit Jessica Mcneil n WHEEL BRAIDER 10/13/2016 Office visit Jessica Mcneil n WHEEL BRAIDER 09/08/[address] Douglas Huang MD 05/27/2016 Office visit Rupal SHOOK 05/15/2016 Office visit Rupal HERNANDEZP 04/30/2016 Office visit Rupal HERNANDEZP 11/06/[address] Douglas Huang MD 10/23/[address] Douglas Huang MD 08/26/[address] Douglas Huang MD 08/15/2015 Laboratory FIDEL TURNER WHEEL BRAIDER 08/12/2015 Office visit FIDEL TURNER WHEEL BRAIDER 08/09/[address] Douglas Huang MD 08/09/[address] Douglas Huang MD 07/10/2015 Office visit FIDEL TURNER WHEEL BRAIDER 06/24/2015 Office visit 06/24/2015 Office visit Jessica TuHeidi fiore WHEEL BRAIDER 04/11/2015 Nurse visit FIDEL TURNER WHEEL BRAIDER 01/25/2015 Office visit FIDEL TURNER WHEEL BRAIDER 02/06/2013 Office visit FIDEL TURNER WHEEL BRAIDER 03/24/2011 Office visit Fidel Turner WHEEL BRAIDER 09/29/2010 Nurse visit Fidel Turner WHEEL BRAIDER 08/20/2009 Office visit Fidel Turner WHEEL BRAIDER
--- OUTSIDE RECORDS SUMMARY | 2019-12-14 02:05 | XMS REPORT ---
Author Author Eliana Chakraborty [facility] Address [address] [place], [place] [id number] Care Team Providers Care Cable Driller Name Role Phone Jessica Chakraborty PCP Allergies [...] 4.85 HGB 14.50 g/dLHCT 43.40 %MCV 90.0 [facility] 29.90 pgHC 33.40 g/dLRDW SD 41 RDW [...] 04/11/2015 [employer] MSD GARDASIL [id number] Intramuscul ar Left Deltoid 04/12/2015 03/10/2013 63 [...] cy Group Number Start Date Aetna Aetna [id number] Wednesday [facility] [id number] [facility] void October [facility] [address] [facility] void October [facility] [id number] [facility] void Monday, 2010 History of Encounters Visit Date Visit Type Provider 10/11/2018 Office visit Jessica Castrojenny n CHANGE CONTROL MANAGER 07/22/2018 Office visit Jessica Mcneil macarena CHANGE CONTROL MANAGER 12/03/2017 Office visit Jessica Mcneil n CHANGE CONTROL MANAGER 10/13/2016 Office visit Jessica Mcneil n CHANGE CONTROL MANAGER 09/08/[address] Douglas Huang MD 05/27/2016 Office visit Rupal SHOOK 05/15/2016 Office visit Rupal HERNANDEZP 04/30/2016 Office visit Rupal HERNANDEZP 11/06/[address] Douglas Huang MD 10/23/[address] Douglas Huang MD 08/26/[address] Douglas Huang MD 08/15/2015 Laboratory FIDEL TURNER CHANGE CONTROL MANAGER 08/12/2015 Office visit FIDEL TURNER CHANGE CONTROL MANAGER 08/09/[address] Douglas Huang MD 08/09/[address] Douglas Huang MD 07/10/2015 Office visit FIDEL TURNER CHANGE CONTROL MANAGER 06/24/2015 Office visit 06/24/2015 Office visit Jessica TuHeidi fiore CHANGE CONTROL MANAGER 04/11/2015 Nurse visit FIDEL TURNER CHANGE CONTROL MANAGER 01/25/2015 Office visit FIDEL TURNER CHANGE CONTROL MANAGER 02/06/2013 Office visit FIDEL TURNER CHANGE CONTROL MANAGER 03/24/2011 Office visit Fidel Turner CHANGE CONTROL MANAGER 09/29/2010 Nurse visit Fidel Turner CHANGE CONTROL MANAGER 08/20/2009 Office visit Fidel Turner CHANGE CONTROL MANAGER
--- OUTSIDE RECORDS SUMMARY | 2019-12-14 02:05 | XMS REPORT ---
Author Author Eliana Chakraborty [facility] Address [address] [place], [place] [id number] Care Team Providers Care Steel Fitter Name Role Phone Jessica Chakraborty PCP Allergies [...] 04/11/2015 [employer] MSD GARDASIL [id number] Intramuscul ar Left Deltoid 04/12/2015 03/10/2013 63 [...] result negative Oct 11 201 8 1:29PM Payers Insurance Name Company Name Plan Name Plan Number Policy Number Raffy cy Group Number Start Date Aetna Aetna [id number] Wednesday [facility] [address] [facility] void October [facility] [address] [facility] void October [facility] [address] [facility] void Monday, 2010 History of Encounters Visit Date Visit Type Provider 10/11/2018 Office visit Jessica fiore COMMERCIAL SALES MANAGER 07/22/2018 Office visit Jessica fiore COMMERCIAL SALES MANAGER 12/03/2017 Office visit Jessica Lopez Tarun n COMMERCIAL SALES MANAGER 10/13/2016 Office visit Jessica Lopez Tarun n COMMERCIAL SALES MANAGER 09/08/[address] Douglas Huang MD 05/27/2016 Office visit Rupal Michel TRUCK ENGINE ASSEMBLER 05/15/2016 Office visit Rupal Michel TRUCK ENGINE ASSEMBLER 04/30/2016 Office visit Rupal HERNANDEZP 11/06/[address] Douglas Huang MD 10/23/[address] Douglas Huang MD 08/26/[address] Douglas Huang MD 08/15/2015 Laboratory FIDEL TURNER COMMERCIAL SALES MANAGER 08/12/2015 Office visit FIDEL TURNER COMMERCIAL SALES MANAGER 08/09/[address] Douglas Huang MD 08/09/[address] Douglas Huang MD 07/10/2015 Office visit FIDEL TURNER COMMERCIAL SALES MANAGER 06/24/2015 Office visit 06/24/2015 Office visit Jessica fiore COMMERCIAL SALES MANAGER 04/11/2015 Nurse visit FIDEL TURNER COMMERCIAL SALES MANAGER 01/25/2015 Office visit FIDEL TURNER COMMERCIAL SALES MANAGER 02/06/2013 Office visit FIDEL TURNER COMMERCIAL SALES MANAGER 03/24/2011 Office visit Fidel Turner COMMERCIAL SALES MANAGER 09/29/2010 Nurse visit Fidel Turner COMMERCIAL SALES MANAGER 08/20/2009 Office visit Fidel Turner COMMERCIAL SALES MANAGER
--- OUTSIDE RECORDS SUMMARY | 2019-12-14 02:08 | XMS REPORT | CCD ---
Author Author Eliana Longoria Organization Annmarie Balderas MD, [facility] Address [address] [place] [address] Phone Care Team Providers Care Glove Printer Name Role Phone PP Unavailable CCM Unavailable Summary Purpose Interface Exchange Insurance Providers Payer name Policy type / Coverage type Covered alliance party ID Effective Begin Date Effective End Date [employer] Commercial Insurance [id number] Unknown Family history Father Diagnosis Age At Onset Depression Unknown Asthma Unknown Hypertension Unknown Hyperlipidemia Unknown Social History Social History Element Codes Description Effective Dates Marital status Unknown S kayley 11/24/2018 Number of children Unknown 0 11/24/[address]: 630427860 Never smoker 11/24/2018 Alcohol history Unknown occasionally drinks alcohol 11/24/2018 Frequency of drinks SNOMED CT: 092222768 1-4 drinks per week 11/24/2018 Allergies, Adverse Reactions, Alerts Substance Reaction Codes Entered Date Inactivated Date Status zithromax RxNorm: 933158 11/24/2018 No Inactive Date Active Past Medical History Illness Codes Condition Status Onset Date Resolved Date Diarrhea, unspecified ICD-9: 787.91 ICD-10: R19.7 Active 12/15/2018 Unknown Other specified inte stinal infections ICD-9: 009.0 ICD-10: A08.8 Active 12/15/2018 Unknown Monocytosis (symptom atic) ICD-9: 288.63 ICD-10: D72.821 Active 12/07/2018 Unknown Elevated C-reactive protein (CRP) ICD-9: 790.95 ICD-10: R79.82 Active 12/02/2018 Unknown Other elevated white blood cell count ICD-9: 288.69 ICD-10: D72.828 Active 12/07/2018 Unknown Other fatigue ICD-9: 780.79 ICD-10: R53.83 Active 11/24/2018 Unknown Other malaise ICD-9: 780.79 ICD-10: R53.81 Active 11/24/2018 Unknown Headache ICD-9: 784.0 ICD-10: R51 Active 11/24/2018 Unknown Nipple discharge ICD-9: 611.79 ICD-10: N64.52 Active 11/24/2018 Unknown Problems Condition Codes Effectiv e Dates Condition Status Diarrhea, unspecified ICD-9: 787.91 ICD-10: R19.7 12/15/2018 Active Other specified inte stinal infections ICD-9: 009.0 ICD-10: A08.8 12/15/2018 Active Monocytosis (symptom atic) ICD-9: 288.63 ICD-10: D72.821 12/07/2018 Active Elevated C-reactive protein (CRP) ICD-9: 790.95 ICD-10: R79.82 12/02/2018 Active Other elevated white blood cell count ICD-9: 288.69 ICD-10: D72.828 12/07/2018 Active Other fatigue ICD-9: 780.79 ICD-10: R53.83 11/24/2018 Active Other malaise ICD-9: 780.79 ICD-10: R53.81 11/24/2018 Active Headache ICD-9: 784.0 ICD-10: R51 11/24/2018 Active Nipple discharge ICD-9: 611.79 ICD-10: N64.52 11/24/2018 Active Medications Medication Codes Instruc tions Start Date Stop Date Sta tu Fill Instructions fluoxetine 60 mg tablet RxNorm: 4834869 1 Tablet(s) PO daily 04/18/2019 04/11/2020 Active Forfivo XL 450 mg ta blet,extended release RxNorm: 8125014 1 Tablet(s) PO daily 04/18/2019 04/11/2020 Ac tive lamotrigine 100 mg t ablet RxNorm: 312493 1 Tablet(s) PO daily 04/18/2019 04/11/2020 Active lamotrigine 100 mg t ablet RxNorm: 675952 1 Tablet(s) PO daily 04/18/2019 04/17/2019 Inactive doxycycline hyclate 100 mg capsule RxNorm: 7533390 1 Capsule(s) PO BID x 2 weeks, then daily x 1 month 01/18/2019 No Stop Date Active VSL#3 112.5 billion cell capsule RxNorm: 1 Capsule(s) PO daily 12/16/2018 No Stop Date Active ondansetron 4 mg dis integrating tablet RxNorm: 605625 1 Tablet(s) PO TID as needed nausea and vomitting 12/15/2018 No Stop Date Active doxycycline hyclate 100 mg capsule RxNorm: 2959419 1 Capsule(s) PO BID 12/02/2018 12/15/2018 In active doxycycline hyclate 100 mg capsule RxNorm: 1592355 1 Capsule(s) PO BID 12/02/2018 12/01/2018 In active fluoxetine 60 mg tablet RxNorm: 7334560 1 Tablet(s) PO daily 11/24/2018 12/23/2018 Inactive Forfivo XL 450 mg ta blet,extended release RxNorm: 8604861 1 Tablet(s) PO daily No Start Date 04/17/2019 Inactive Medication Administered No Medication Administered data Immunizations No Immunization data Assessments Condition Codes Effectiv e Dates Other specified intestinal infections ICD-10: A08.8 ICD-9: 009.0 12/15/2018 Diarrhea, unspecified ICD-10: R19.7 ICD-9: 787.91 12/15/2018 Monocytosis (symptomatic) ICD-10: D7 2.821 ICD-9: 288.63 12/13/2018 Elevated C-reactive protein (CRP) IC D-10: R79.82 ICD-9: 790.95 12/07/2018 Other elevated white blood cell count ICD-10: D72.828 ICD-9: 288.69 12/07/2018 Other fatigue ICD-10: R53.83 ICD-9: 780.79 12/02/2018 Other malaise ICD-10: R53.81 ICD-9: 780.79 12/02/2018 Headache ICD-10: R51 ICD-9: 784.0 11/24/2018 Nipple discharge ICD-10: N64.52 ICD-9: 611.79 11/24/2018 Reason For Visit Reason For Visit Effective Dates Notes nausea 12/15/2018 galactorrhea 12/07/2018 galactorrhea 11/24/2018 Results Observation Observation Code Item Item Code Result Date Dehydroepiandrosterone, (DHEA) Serum 32268 0 DEHYDROEPIANDROSTERONE (DHEA) 495 NG /DL 02/08/2019 ACTH, Plasma 193468 ACTH , PLASMA 20.2 PG/ML 02/06/2019 Cortisol, Serum 448915 C ORTISOL 15.3 UG/DL 02/04/2019 Cbc With Differential Ord2 WBC 6.70 K/ul 12/15/2018 Cbc With Differential Ord2 RBC 4.52 M/ul 12/15/2018 Cbc With Differential Ord2 HGB 13.7 g/dl 12/15/2018 Cbc With Differential Ord2 HCT 40.8 % 12/15/2018 Cbc With Differential Ord2 Neut% 57.2 % 12/15/2018 Cbc With Differential Ord2 MCV 90.3 fl 12/15/2018 Cbc With Differential Ord2 Lymph% 25.1 % 12/15/2018 Cbc With Differential Ord2 MCH 30.3 pg 12/15/2018 Cbc With Differential Ord2 [place]% 17.0 % 12/15/2018 Cbc With Differential Ord2 MCHC 33.6 pg 12/15/2018 Cbc With Differential Ord2 Eos% 0.6 % 12/15/2018 Cbc With Differential Ord2 PLT 371 K/ul 12/15/2018 Cbc With Differential Ord2 Baso% 0.1 % 12/15/2018 Cbc With Differential Ord2 RDW 13.5 % 12/15/2018 Cbc With Differential Ord2 Neut ABS# 3.83 K/ul 12/15/2018 Cbc With Differential Ord2 Lymph ABS# 1.68 K/ul 12/15/2018 Cbc With Differential Ord2 [place] ABS# 1.1 K/ul 12/15/2018 Cbc With Differential Ord2 Eos ABS# 0.0 K/ul 12/15/2018 Cbc With Differential Ord2 Baso ABS# 0.0 K/ul 12/15/2018 Ehrlichia Chaffeensis Antibody Igg 898574 EHRLICHIA CHAFFEENSIS IGG <1:64 12/06/2018 Ehrlichia Chaffeensis Antibody Igm 050453 EHRLICHIA CHAFFEENSIS IGM < 1:16 12/06/2018 Festus Spotted Fever Igg/Igm 01035 3 SRIDEVI MT SPOTTED FEVER IGM EIA . 12/06/2018 Festus Spotted Fever Igg/Igm 10575 3 RMSF, IGM <1:64 12/06/2018 Festus Spotted Fever Igg/Igm 98785 3 SRIDEVI MT SPOTTED FEVER IGG . 12/06/2018 Festus Spotted Fever Igg/Igm 30774 3 RMSF, IGG SCREEN-FLEX <1:64 12/06/2018 Kaitlin [id number] KAITLIN (FANNIE) Isabel GUPTA NONE DETECTED 019 Ra Factor Osu105 RA FACT OR <10 IU/ml 12/02/2018 Lymes Western Blot Serum 827173 B. BURGDORFERI, IGG WB Negative 12/01/2018 Lymes Western Blot Serum 526279 B. BURGDORFERI, IGM WB Negative 12/01/2018 Lymes Disease Total Antibodies With Western Blot Refle x 462748 B. BURGDORFERI, IGG/IGM 1.02 11/29/2018 Lymes Disease Total Antibodies With Western Blot Refle x 202228 INTERPRETATION 11/29/2018 Thyroid Antibodies 926939 THYROGLOBULIN ANTIBODY . 11/29/2018 Thyroid Antibodies 884550 THYROGLOBULIN ANTIBODY <10 IU/mL 11/29/2018 Thyroid Antibodies 800902 THYROID PEROXIDASE (TPO) AB . 11/29/2018 Thyroid Antibodies 426426 THYROID PEROXIDASE (TPO) AB 14 IU/mL 11/29/2018 Sed Rate Ord21 ESR 7 mm/hr 11/29/2018 [facility] Qual Ord68 [facility] Qual Negative 11/28/2018 Cbc With Differential Ord2 WBC 11.89 K/ul 11/28/2018 Cbc With Differential Ord2 RBC 4.25 M/ul 11/28/2018 Cbc With Differential Ord2 HGB 12.9 g/dl 11/28/2018 Cbc With Differential Ord2 HCT 38.2 % 11/28/2018 Cbc With Differential Ord2 Neut% 58.9 % 11/28/2018 Cbc With Differential Ord2 MCV 89.9 fl 11/28/2018 Cbc With Differential Ord2 Lymph% 27.3 % 11/28/2018 Cbc With Differential Ord2 MCH 30.4 pg 11/28/2018 Cbc With Differential Ord2 [place]% 12.6 % 11/28/2018 Cbc With Differential Ord2 MCHC 33.8 pg 11/28/2018 Cbc With Differential Ord2 Eos% 0.9 % 11/28/2018 Cbc With Differential Ord2 PLT 387 K/ul 11/28/2018 Cbc With Differential Ord2 Baso% 0.3 % 11/28/2018 Cbc With Differential Ord2 RDW 13.1 % 11/28/2018 Cbc With Differential Ord2 Neut ABS# 6.99 K/ul 11/28/2018 Cbc With Differential Ord2 Lymph ABS# 3.25 K/ul 11/28/2018 Cbc With Differential Ord2 [place] ABS# 1.5 K/ul 11/28/2018 Cbc With Differential Ord2 Eos ABS# 0.1 K/ul 11/28/2018 Cbc With Differential Ord2 Baso ABS# 0.0 K/ul 11/28/2018 Free T4 Tff880 FREE T4 0.63 ng/dL 11/28/2018 %Hba1C Fqv915 % HbA1c 85624-5 4.7 % 11/28/2018 %Hba1C Gwa432 Gluc Ave 88 mg/dL 11/28/2018 [place] Vzc680 MONO Negative 11/28/2018 C-Reactive Protein Qnt Crqnt CRP 0.7 mg/dl 11/28/2018 Total T3 Ord42 TT3 1.23 ng/ml 11/28/2018 Review of Systems System Result Effective Dates Constitutional recent illness 12/15/2018 Constitutional No chills 12/15/2018 Constitutional No diaphoresis 12/15/2018 Constitutional No fever 12/15/2018 Eyes No eye erythema Ears/Nose/Throat/Neck No nasal discharge 12/15/2018 Cardiovascular No chest pain/pressure 12/15/2018 Cardiovascular No dyspnea 12/15/2018 Respiratory No chest congestion 12/15/2018 Respiratory No cough Gastrointestinal abdominal pain 12/15/2018 Gastrointestinal No constipation 12/15/2018 Gastrointestinal diarrhea 12/15/2018 Gastrointestinal No hematochezia 12/15/2018 Gastrointestinal No melena 12/15/2018 Gastrointestinal nausea 12/15/2018 Gastrointestinal vomiting 12/15/2018 Neurologic No alteration of consciousness 12/15/2018 Neurologic No mental status change 12/15/2018 Constitutional No recent illness 12/07/2018 Constitutional No chills 12/07/2018 Constitutional No diaphoresis 12/07/2018 Constitutional No fever 12/07/2018 Eyes No blindness 2018 Ears/Nose/Throat/Neck No nasal discharge 12/07/2018 Cardiovascular No chest pain/pressure 12/07/2018 Cardiovascular No dyspnea 12/07/2018 Respiratory No cough Respiratory No dyspnea 0 12/07/2018 Gastrointestinal No abdominal pain 12/07/2018 Gastrointestinal No constipation 12/07/2018 Gastrointestinal No diarrhea 12/07/2018 Gastrointestinal No hematochezia 12/07/2018 Gastrointestinal No melena 12/07/2018 Gastrointestinal No nausea 12/07/2018 Gastrointestinal No vomiting 12/07/2018 Genitourinary/Nephrology breast complaint 12/07/2018 Genitourinary/Nephrology No dysuria 12/07/2018 Genitourinary/Nephrology No menstrua l irregularity 12/07/2018 Genitourinary/Nephrology No vaginal discharge 12/07/2018 Musculoskeletal joint complaint 12/07/2018 Dermatologic No rash Neurologic No alteration of consciousness 12/07/2018 Neurologic headache 11/25 Neurologic No mental status change 12/07/2018 Constitutional fatigue 0 12/07/2018 Constitutional weight gain 12/07/2018 Constitutional obesity 0 12/07/2018 Eyes vision change 12/07 Ears/Nose/Throat/Neck No nasal allergies 12/07/2018 Ears/Nose/Throat/Neck No hoarseness 12/07/2018 Musculoskeletal myalgias 12/07/2018 Musculoskeletal muscle weakness 12/07/2018 Psychiatric anxiety 11/25 Psychiatric depression 0 12/07/2018 Constitutional No recent illness 11/24/2018 Constitutional No chills 11/24/2018 Constitutional No diaphoresis 11/24/2018 Constitutional No fever 11/24/2018 Eyes No eye erythema Ears/Nose/Throat/Neck No nasal discharge 11/24/2018 Cardiovascular No chest pain/pressure 11/24/2018 Cardiovascular No dyspnea 11/24/2018 Respiratory No cough Respiratory No dyspnea 0 11/24/2018 Gastrointestinal No abdominal pain 11/24/2018 Gastrointestinal No constipation 11/24/2018 Gastrointestinal No diarrhea 11/24/2018 Gastrointestinal No vomiting 11/24/2018 Gastrointestinal No nausea 11/24/2018 Gastrointestinal No melena 11/24/2018 Gastrointestinal No hematochezia 11/24/2018 Genitourinary/Nephrology No dysuria 11/24/2018 Genitourinary/Nephrology breast complaint 11/24/2018 Genitourinary/Nephrology No vaginal discharge 11/24/2018 Genitourinary/Nephrology No menstrua l irregularity 11/24/2018 Musculoskeletal joint complaint 11/24/2018 Dermatologic No rash Neurologic No alteration of consciousness 11/24/2018 Neurologic No mental status change 11/24/2018 Neurologic headache 10/27 Physical Exam Exam Name System Name It em Name Status Result Effective Dates Notes Full Exam - General 1995 Constitutional general appearance Overall: well developed 12/15/2018 None Full Exam - General 1994 Constitutional general appearance Overall: in no acute distress 12/15/2018 None Full Exam - General 1994 Constitutional general appearance Overall: well nourished 12/15/2018 None Full Exam - General 1994 Eyes conjunctiva/eyelids Overall: conjunctiva clear 12/15/2018 None Full Exam - General 1994 Eyes conjunctiva/eyelids Overall: cornea clear 12/15/2018 None Full Exam - General 1994 Eyes conjunctiva/eyelids Overall: eyelids normal 12/15/2018 None Full Exam - General 1994 Ears/Nose/Throat lips/teeth/gingiva Overall: benign lips 12/15/2018 None Full Exam - General 1994 Ears/Nose/Throat oral cavity/pharynx/larynx Overall: oral mucosa clear 12/15/2018 None Full Exam - General 1994 Respiratory auscultation Overall: breath sounds clear bilaterally 12/15/2018 None Full Exam - General 1994 Respiratory respiratory effort/rhythm Overall: no retractions 12/15/2018 None Full Exam - General 1994 Respiratory respiratory effort/rhythm Overall: normal rate 12/15/2018 None Full Exam - General 1994 Cardiovascular auscultation of heart Overall: regular rate 12/15/2018 None Full Exam - General 1994 Cardiovascular auscultation of heart Overall: normal heart sounds 12/15/2018 None Full Exam - General 1994 Abdomen abdominal exam Bowel sounds: hyperactive 12/15/2018 None Full Exam - General 1994 Abdomen abdominal exam Epigastric: tender to palpation 12/15/2018 None Full Exam - General 1994 Abdomen abdominal exam Epigastric: dull pain 12/15/2018 None Full Exam - General 1994 Abdomen abdominal exam Epigastric: no guarding 12/15/2018 None Full Exam - General 1994 Abdomen abdominal exam Epigastric: no rebound tenderness 12/15/2018 None Full Exam - General 1994 Abdomen abdominal exam Epigastric: soft 12/15/2018 None Full Exam - General 1994 Musculoskeletal head and neck Overall: head atraumatic 12/15/2018 None Full Exam - General 1994 Neurologic cranial nerves Overall: crainial nerves 2 - 12 grossly intact 12/15/2018 None Full Exam - General 1994 Psychiatric orientation/consciousness Overall: oriented to person, place and time 12/15/2018 None Full Exam - General 1994 Psychiatric mood and affect Overall: normal mood and affect 12/15/2018 None Full Exam - General 1994 Constitutional general appearance Overall: well developed 12/07/2018 None Full Exam - General 1994 Constitutional general appearance Overall: in no acute distress 12/07/2018 None Full Exam - General 1994 Constitutional general appearance Overall: well nourished 12/07/2018 None Full Exam - General 1994 Eyes conjunctiva/eyelids Overall: conjunctiva clear 12/07/2018 None Full Exam - General 1994 Eyes conjunctiva/eyelids Overall: cornea clear 12/07/2018 None Full Exam - General 1994 Eyes conjunctiva/eyelids Overall: eyelids normal 12/07/2018 None Full Exam - General 1994 Ears/Nose/Throat otoscopic exam Overall: external auditory canals clear 12/07/2018 None Full Exam - General 1994 Ears/Nose/Throat otoscopic exam Overall: tympanic membranes clear 12/07/2018 None Full Exam - General 1994 Ears/Nose/Throat lips/teeth/gingiva Overall: benign lips 12/07/2018 None Full Exam - General 1994 Ears/Nose/Throat oral cavity/pharynx/larynx Overall: oral mucosa clear 12/07/2018 None Full Exam - General 1994 Respiratory auscultation Overall: breath sounds clear bilaterally 12/07/2018 None Full Exam - General 1994 Respiratory respiratory effort/rhythm Overall: no retractions 12/07/2018 None Full Exam - General 1994 Respiratory respiratory effort/rhythm Overall: normal rate 12/07/2018 None Full Exam - General 1994 Cardiovascular auscultation of heart Overall: regular rate 12/07/2018 None Full Exam - General 1994 Cardiovascular auscultation of heart Overall: normal heart sounds 12/07/2018 None Full Exam - General 1994 Abdomen abdominal exam Overall: no tenderness 12/07/2018 None Full Exam - General 1994 Abdomen abdominal exam Overall: normal bowel sounds 12/07/2018 None Full Exam - General 1994 Musculoskeletal gait and station Overall: normal gait 12/07/2018 None Full Exam - General 1994 Musculoskeletal gait and station Overall: normal station 12/07/2018 None Full Exam - General 1994 Musculoskeletal head and neck Overall: head atraumatic 12/07/2018 None Full Exam - General 1994 Neurologic cranial nerves Overall: crainial nerves 2 - 12 grossly intact 12/07/2018 None Full Exam - General 1994 Psychiatric orientation/consciousness Overall: oriented to person, place and time 12/07/2018 None Full Exam - General 1994 Psychiatric mood and affect Overall: normal mood and affect 12/07/2018 None Full Exam - General 1994 Psychiatric appearance Overall: well-groomed, good eye contact 12/07/2018 None Full Exam - General 1994 Lymphatic neck nodes Overall: anterior cervical chain benign 12/07/2018 None Full Exam - General 1994 Lymphatic neck nodes Overall: posterior cervical chain benign 12/07/2018 None Full Exam - General 1994 Constitutional general appearance Overall: well developed 11/24/2018 None Full Exam - General 1994 Constitutional general appearance Overall: in no acute distress 11/24/2018 None Full Exam - General 1994 Constitutional general appearance Overall: well nourished 11/24/2018 None Full Exam - General 1995 Eyes conjunctiva/eyelids Overall: conjunctiva clear 11/24/2018 None Full Exam - General 1995 Eyes conjunctiva/eyelids Overall: cornea clear 11/24/2018 None Full Exam - General 1994 Eyes conjunctiva/eyelids Overall: eyelids normal 11/24/2018 None Full Exam - General 1994 Ears/Nose/Throat otoscopic exam Overall: tympanic membranes clear 11/24/2018 None Full Exam - General 1994 Ears/Nose/Throat otoscopic exam Overall: external auditory canals clear 11/24/2018 None Full Exam - General 1994 Ears/Nose/Throat oral cavity/pharynx/larynx Overall: oral mucosa clear 11/24/2018 None Full Exam - General 1994 Ears/Nose/Throat lips/teeth/gingiva Overall: benign lips 11/24/2018 None Full Exam - General 1994 Respiratory respiratory effort/rhythm Overall: normal rate 11/24/2018 None Full Exam - General 1994 Respiratory respiratory effort/rhythm Overall: no retractions 11/24/2018 None Full Exam - General 1994 Respiratory auscultation Overall: breath sounds clear bilaterally 11/24/2018 None Full Exam - General 1994 Cardiovascular auscultation of heart Overall: regular rate 11/24/2018 None Full Exam - General 1994 Cardiovascular auscultation of heart Overall: normal heart sounds 11/24/2018 None Full Exam - General 1994 Abdomen abdominal exam Overall: normal bowel sounds 11/24/2018 None Full Exam - General 1994 Abdomen abdominal exam Overall: no tenderness 11/24/2018 None Full Exam - General 1994 Chest/Breast breast and axillae palpation Overall: breasts non- tender 11/24/2018 None Full Exam - General 1994 Chest/Breast breast and axillae palpation Overall: axillae non- tender 11/24/2018 None Full Exam - General 1994 Chest/Breast breast and axillae palpation Nipple: white discharge 11/24/2018 None Full Exam - General 1994 Chest/Breast breast and axillae palpation Nipple: clear discharge 11/24/2018 None Full Exam - General 1994 Musculoskeletal gait and station Overall: normal station 11/24/2018 None Full Exam - General 1994 Musculoskeletal gait and station Overall: normal gait 11/24/2018 None Full Exam - General 1994 Musculoskeletal head and neck Overall: head atraumatic 11/24/2018 None Full Exam - General 1994 Neurologic cranial nerves Overall: crainial nerves 2 - 12 grossly intact 11/24/2018 None Full Exam - General 1994 Psychiatric orientation/consciousness Overall: oriented to person, place and time 11/24/2018 None Full Exam - General 1994 Psychiatric mood and affect Overall: normal mood and affect 11/24/2018 None Full Exam - General 1994 Psychiatric appearance Overall: well-groomed, good eye contact 11/24/2018 None Procedures No Procedures data Vital Signs Date Vital 12/15/2018 Blood Pressure 1: 126/74 Code: 8480-6 BMI: 29.9 Code: 85843-4 Heart Rate 1: 95 bpm Height: 5'7" SpO2: 98% Temperature: 36.9 (C ) / 98.5 (F) Weight: 191 lbs 12/07/2018 Blood Pressure 1: 120/72 Code: 8480-6 BMI: 29.9 Code: 33605-1 Heart Rate 1: 104 bpm Height: 5'7" SpO2: 98% Weight: 191 lbs 11/24/2018 Blood Pressure 1: 122/64 Code: 8480-6 BMI: 29.4 Code: 32460-6 Heart Rate 1: 85 bpm Height: 5'7" SpO2: 98% Weight: 188 lbs Functional Status No Functional Status data History of Present Illness Symptom Name Status Resu lt Effective Date Notes Onset of Symptom 3 day s ago 12/15/2018 None Frequency of Episodes daily 12/15/2018 None Pertinent Findings kofi sis 12/15/2018 None Onset and Resolution s udden in onset 12/15/2018 None Location in the left b reast 12/07/2018 None Quality acute 12/07/2018 None Onset and Resolution s udden in onset 12/07/2018 None Onset of Symptom week s ago 12/07/2018 None Severity mild 12/07/2018 None Pertinent Findings Den ies breast pain 12/07/2018 None Pertinent Findings dec reased energy 12/07/2018 None Pertinent Findings Den ies fever 12/07/2018 None Pertinent Findings reg ular menses 12/07/2018 None Triggers no known asso ciated factors 12/07/2018 None Quality acute 12/07/2018 None Onset of Symptom 2 mon ths ago 12/07/2018 None Triggers no known asso ciated factors 12/07/2018 None Triggers unintentional weight gain 12/07/2018 None Quality chronic 12/07/2018 None Frequency of Episodes increasing 12/07/2018 None Quality blurred vision 12/07/2018 None Quality acute 12/07/2018 None Triggers no known asso ciated factors 12/07/2018 None Quality chronic 12/07/2018 None Quality worsening 12/07/2018 None Onset and Resolution o ngoing 12/07/2018 None Frequency of Episodes increasing 12/07/2018 None Triggers no known asso ciated factors 12/07/2018 None Onset of Symptom a few months ago 12/07/2018 None Location in the left b reast 11/24/2018 None Quality acute 11/24/2018 None Onset and Resolution s udden in onset 11/24/2018 None Onset of Symptom _ wee ks ago 11/24/2018 None Severity mild 11/24/2018 None Pertinent Findings Den ies fever 11/24/2018 None Pertinent Findings Den ies breast pain 11/24/2018 None Pertinent Findings dec reased energy 11/24/2018 None Pertinent Findings reg ular menses 11/24/2018 None Limitation on Activities moderately limits activities 11/24/2018 None Advance Directives No Advance Directive data Encounters Encounter Performer Loca tion Codes Date 30689 EST. PATIENT, LEVEL III Diagnosis: Other specified intestinal infections[ICD10: A08.8] Diagnosis: Diarrhea, unspecified[ICD10: R19.7] Leyla Balderas MD, [facility] CPT-4: 49820 12/15/2018 [id number]) 36440 EST. P ATIENT, LEVEL IV Diagnosis: Elevated C-reactive protein (CRP)[ICD10: R79.82] Diagnosis: Monocytosis (symptomatic)[ICD10: D72.821] Diagnosis: Other elevated white blood cell count[ICD10: D72.828] Annmarie Balderas MD, [facility] CPT-4: 07567 12/07/2018 OFFICE VISIT, NEW - LEVEL 4 Diagnosis: Nipple discharge[ICD10: N64.52] Diagnosis: Other fatigue[ICD10: R53.83] Diagnosis: Other malaise[ICD10: R53.81] Diagnosis: Headache[ICD10: R51] Leyla Balderas MD, [facility] CPT-4: 68832 11/24/2018 Plan of Care Planned Activity Notes C odes Status Date Visit Plan: Gastroenteritis - discu ssed need to stay away from milk products while acutely ill with diarrhea and nausea and emesis as it may worsen the symptoms. Liquids initially until the nausea improves, then re commend to advance to bland diet for 1 day, then advance as tolerated. Call if symptoms not improved. Diarrhea - recommended bland diet, low fat diet, start on probiotic, and rehydrate with gatorade-like product. Pt to call if feeling worse, diarrhea becomes bloody, or does not improve with above recommendations. Pt to call for acute worsening of stomach upset or stomach pain. 12/15/2018 Appointment: Leyla Longoria [facility]el: [phone] [id number] [place] (15 min) Moderate 12/15/2018 Patient Education: Patient Medication Summary Completed 12/15/2018 Patient Education: Patient Medication Summary Completed 12/13/2018 Visit Plan: Elevated Monocytosis, L eukocytosis - discussed with pt and her mom - order for Isaiah Elder Virus panel sent to pharmacy. Continue with doxycycline - rx for treatment of possible tic borne illness. Weig ht gain/obesity - pt has a bad diet - lots of carbs, fast food, she has "eaten like this for year" - however her family does not think that this is the reason for the weight gain of 50# in the past 8 months. I have recommended low carb diet - discussed with her mom and Eliana that they need to look into delivered meals. Supportive care at this time - advised exercise. 12/07/2018 Appointment: [phone] [facility] [place] (30 min) Complex 12/07/2018 Patient Education: Patient Medication Summary Completed 12/07/2018 Patient Education: Patient Medication Summary Completed 12/02/2018 Visit Plan: Nipple discharge, fatig ue, malaise, increasing migraines - will check labs and samples of nipple discharge - will treat as indicated - pt is to notify clinic with any changes, questions, or concerns. 11/24/2018 Appointment: [facility] Long[facility]el[facility] [phone] [facility] [place] New Patient 11/24/2018 Patient Education: Patient Medication Summary Completed 11/24/2018 Instructions Comment Take antibiotic with food. Gastroenteritis - discussed need to stay away from milk products while acutely ill with diarrhea and nausea and emesis as it may worsen the symptoms. Liquids initially until the nausea improves, then recommend to advance to bland diet for 1 day, then advance as tolerated. Call if symptoms not improved. Diarrhea - recommended bland diet, low fat diet, start on probiotic, and rehydrate with gatorade-like product. Pt to call if feeling worse, diarrhea becomes bloody, or does not improve with above recommendations. Pt to call for acute worsening of stomach upset or stomach pain. . Elevated Monocytos is, Leukocytosis - discussed with pt and her mom - order for Isaiah Elder Virus panel sent to pharmacy. Continue with doxycycline - rx for treatment of possible tic borne illness. Weight gain/obesity - pt has a bad diet - lots of carbs, fast food, she has "eaten like this for year" - however her family does not think that this is the reason for the weight gain of 50# in the past 8 months. I have recommended low carb diet - discussed with her mom and Eliana that they need to look into delivered meals. Supportive care at this time - advised exercise. . Nipple discharge, fatigue, malaise, increasing migraines - will check labs and samples of nipple discharge - will treat as indicated - pt is to notify clinic with any changes, questions, or concerns.
--- OUTSIDE RECORDS SUMMARY | 2019-12-14 02:08 | XMS REPORT | CCD ---
Author Author Eliana Longoria Organization Annmarie Balderas MD, [facility] Address [address] [place] [address] Phone Care Team Providers Care Industrial Rehabilitation Consultant Name Role Phone PP Unavailable CCM Unavailable Summary Purpose Interface Exchange Insurance Providers Payer name Policy type / Coverage type Covered green party ID Effective Begin Date Effective End Date A[employer]NA Commercial Insurance [id number] Unknown Family history Father Diagnosis Age At Onset Depression Unknown Asthma Unknown Hypertension Unknown Hyperlipidemia Unknown Social History Social History Element Codes Description Effective Dates Marital status Unknown S kayley 11/24/2018 Number of children Unknown 0 11/24/[address]: 779886907 Never smoker 11/24/2018 Alcohol history Unknown occasionally drinks alcohol 11/24/2018 Frequency of drinks SNOMED CT: 372058082 1-4 drinks per week 11/24/2018 Allergies, Adverse Reactions, Alerts Substance Reaction Codes Entered Date Inactivated Date Status zithromax RxNorm: 501158 11/24/2018 No Inactive Date Active Past Medical [...] Instruc tions Start Date Stop Date Sta tus Fill Instructions doxycycline hyclate 100 mg capsule RxNorm: 6940528 1 Capsule(s) PO BID x 2 weeks, then daily x 1 month 01/18/2019 No Stop Date Active VSL#3 112.5 billion cell capsule RxNorm: 1 Capsule(s) PO daily 12/16/2018 No Stop Date Active ondansetron 4 mg dis integrating tablet RxNorm: 910788 1 Tablet(s) PO TID as needed nausea and vomitting 12/15/2018 No Stop Date Active doxycycline hyclate 100 mg capsule RxNorm: 9776943 1 Capsule(s) PO BID 12/02/2018 12/15/2018 In active doxycycline hyclate 100 mg capsule RxNorm: 6393285 1 Capsule(s) PO BID 12/02/2018 12/01/2018 In active fluoxetine 60 mg tablet RxNorm: 8512330 1 Tablet(s) PO daily 11/24/2018 12/23/2018 Inactive Forfivo XL 450 mg ta blet,extended release RxNorm: 4740973 1 Tablet(s) PO daily No Start Date Active Medication Administered No Medication Administered data Immunizations [...] Observation Code Item Item Code Result Date Cortisol, Serum 062604 C ORTISOL 15.3 UG/DL 02/04/2019 Cbc With [...] 30.3 pg 12/15/2018 Cbc With Differential Ord2 White% 17.0 % 12/15/2018 Cbc With Differential Ord2 [...] 1.68 K/ul 12/15/2018 Cbc With Differential Ord2 White ABS# 1.1 K/ul 12/15/2018 Cbc With Differential Ord2 Eos ABS# 0.0 K/ul 12/15/2018 Cbc With Differential Ord2 Baso ABS# 0.0 K/ul 12/15/2018 Ehrlichia Chaffeensis Antibody Igg 571087 EHRLICHIA CHAFFEENSIS IGG <1:64 12/06/2018 Ehrlichia Chaffeensis Antibody Igm 324701 EHRLICHIA CHAFFEENSIS IGM < 1:16 12/06/2018 [place] Spotted Fever Igg/Igm 34959 3 SRIDEVI [place] SPOTTED FEVER IGM EIA . 12/06/2018 [place] Spotted Fever Igg/Igm 34779 3 RMSF, IGM <1:64 12/06/2018 [place] Spotted Fever Igg/Igm 28780 3 SRIDEVI MT SPOTTED FEVER IGG . 12/06/2018 [place] Spotted Fever Igg/Igm 70625 3 RMSF, IGG SCREEN-FLEX <1:64 12/06/2018 Kaitlin [id number] KAITLIN (FANNIE) S CREEN NONE DETECTED 019 Ra Factor Ext257 RA FACT OR <10 IU/ml 12/02/2018 [place] Western Blot Serum 203409 B. BURGDORFERI, IGG WB Negative 12/01/2018 [place] Western Blot Serum 766695 B. BURGDORFERI, IGM WB Negative 12/01/2018 [place] Disease Total Antibodies With Western Blot Refle x 877630 B. BURGDORFERI, IGG/IGM 1.02 11/29/2018 [place] [facility] Total Antibodies With Western Blot Refle x 536113 INTERPRETATION 11/29/2018 Thyroid Antibodies 271121 THYROGLOBULIN ANTIBODY . 11/29/2018 Thyroid Antibodies 359563 THYROGLOBULIN ANTIBODY <10 IU/mL 11/29/2018 Thyroid Antibodies 122011 THYROID PEROXIDASE (TPO) AB . 11/29/2018 Thyroid Antibodies 739885 THYROID PEROXIDASE (TPO) AB 14 IU/mL 11/29/2018 Sed Rate Ord21 ESR 7 mm/hr 11/29/2018 [facility] [place] Ord68 [facility] [place] Negative 11/28/2018 Cbc With Differential Ord2 [...] 30.4 pg 11/28/2018 Cbc With Differential Ord2 White% 12.6 % 11/28/2018 Cbc With Differential Ord2 [...] 3.25 K/ul 11/28/2018 Cbc With Differential Ord2 White ABS# 1.5 K/ul 11/28/2018 Cbc With Differential Ord2 Eos ABS# 0.1 K/ul 11/28/2018 Cbc With Differential Ord2 Baso ABS# 0.0 K/ul 11/28/2018 Free T4 Vfn197 FREE T4 0.63 ng/dL 11/28/2018 %Hba1C Tza902 % HbA1c 54587-7 4.7 % 11/28/2018 %Hba1C Juk453 Gluc Ave 88 mg/dL 11/28/2018 [place] Kjr589 MONO Negative 11/28/2018 C-Reactive Protein Qnt Crqnt [...] Effective Dates Notes Full Exam - General 1994 Constitutional general appearance Overall: well developed 12/15/2018 [...] nourished 11/24/2018 None Full Exam - General 1994 Eyes conjunctiva/eyelids Overall: conjunctiva clear 11/24/2018 None Full Exam - General 1994 Eyes conjunctiva/eyelids Overall: cornea clear 11/24/2018 None Full Exam - General 1994 Eyes conjunctiva/eyelids Overall: eyelids normal 11/24/2018 None Full Exam - General 1995 Ears/Nose/Throat otoscopic exam Overall: tympanic membranes clear [...] 1: 126/74 Code: 8480-6 BMI: 29.9 Code: 72088-7 Heart Rate 1: 95 bpm Height: 5'7" SpO2: 98% Temperature: 36.9 (C ) / 98.5 (F) Weight: 191 lbs 12/07/2018 Blood Pressure 1: 120/72 Code: 8480-6 BMI: 29.9 Code: 43403-8 Heart Rate 1: 104 bpm Height: 5'7" SpO2: 98% Weight: 191 lbs 11/24/2018 Blood Pressure 1: 122/64 Code: 8480-6 BMI: 29.4 Code: 00221-4 Heart Rate 1: 85 bpm Height: 5'7" [...] Encounters Encounter Performer Loca tion Codes Date EST. PATIENT, LEVEL III Diagnosis: Other specified intestinal infections[ICD10: A08.8] Diagnosis: Diarrhea, unspecified[ICD10: R19.7] Leyla Balderas MD, [facility] CPT-4: 06162 12/15/2018 ([id number]) [id number] EST. P ATIENT, LEVEL IV Diagnosis: Elevated C-reactive protein (CRP)[ICD10: R79.82] Diagnosis: Monocytosis (symptomatic)[ICD10: D72.821] Diagnosis: Other elevated white blood cell count[ICD10: D72.828] Annmarie Balderas MD, [facility] CPT-4: 08709 12/07/2018 OFFICE VISIT, NEW - LEVEL 4 Diagnosis: Nipple discharge[ICD10: N64.52] Diagnosis: Other fatigue[ICD10: R53.83] Diagnosis: Other malaise[ICD10: R53.81] Diagnosis: Headache[ICD10: R51] Leyla Balderas MD, [facility] CPT-4: 26133 11/24/2018 Plan of Care Planned Activity Notes [...] stomach pain. 12/15/2018 Appointment: Leyla Longoria WPtel: [phone] [facility] (15 min) Moderate 12/15/2018 Patient Education: Patient [...] advised exercise. 12/07/2018 Appointment: Annmarie Balderas WPtel: [facility][note 3]2 [facility]66[facility] (30 min) Complex 12/07/2018 Patient Education: Patient Medication Summary Completed 12/07/2018 Patient Education: Patient Medication Summary Completed 12/02/2018 Visit Plan: Nipple discharge, fatig ue, malaise, increasing migraines - will check labs and samples of nipple discharge - will treat as indicated - pt is to notify clinic with any changes, questions, or concerns. 11/24/2018 Appointment: Leyla Longoria WPtel: [phone] [facility] New Patient 11/24/2018 Patient Education: Patient Medication [...]
--- OUTSIDE RECORDS SUMMARY | 2019-12-14 02:09 | XMS REPORT | CCD ---
Author Author Eliana Longoria Organization Annmarie Balderas MD, [facility] Address [address] [place] [address] Phone Care Team Providers Care Tool Profiling Machine Set Up Operator Name Role Phone PP Unavailable CCM Unavailable Summary Purpose Interface Exchange Insurance Providers Payer name Policy type / Coverage type Covered democrat ID Effective Begin Date Effective End Date AETNA Commercial Insurance [id number] Unknown Family history Father Diagnosis Age At Onset Depression Unknown Asthma Unknown Hypertension Unknown Hyperlipidemia Unknown Social History Social History Element Codes Description Effective Dates Marital status Unknown S kayley 11/24/2018 Number of children Unknown 0 11/24/[address]: 030622382 Never smoker 11/24/2018 Alcohol history Unknown occasionally drinks alcohol 11/24/2018 Frequency of drinks SNOMED CT: 181839611 1-4 drinks per week 11/24/2018 Allergies, Adverse Reactions, Alerts Substance Reaction Codes Entered Date Inactivated Date Status zithromax RxNorm: 482698 11/24/2018 No Inactive Date Active Past Medical [...] Date Stop Date Sta tus Fill Instructions VSL#3 112.5 billion cell capsule RxNorm: 1 Capsule(s) PO daily 12/16/2018 No Stop Date Active ondansetron 4 mg dis integrating tablet RxNorm: 594066 1 Tablet(s) PO TID as needed nausea and vomitting 12/15/2018 No Stop Date Active doxycycline hyclate 100 mg capsule RxNorm: 4066251 1 Capsule(s) PO BID 12/02/2018 12/15/2018 In active doxycycline hyclate 100 mg capsule RxNorm: 6894344 1 Capsule(s) PO BID 12/02/2018 12/01/2018 In active fluoxetine 60 mg tablet RxNorm: 5421521 1 Tablet(s) PO daily 11/24/2018 12/23/2018 Active Forfivo XL 450 mg ta blet,extended release RxNorm: 7781504 1 Tablet(s) PO daily No Start Date [...] Observation Code Item Item Code Result Date Cbc With Differential Ord2 WBC 6.70 K/ul [...] 30.3 pg 12/15/2018 Cbc With Differential Ord2 [place]% 17.0 % 12/15/2018 Cbc With Differential Ord2 [...] 1.68 K/ul 12/15/2018 Cbc With Differential Ord2 [place] ABS# 1.1 K/ul 12/15/2018 Cbc With Differential Ord2 Eos ABS# 0.0 K/ul 12/15/2018 Cbc With Differential Ord2 Baso ABS# 0.0 K/ul 12/15/2018 Ehrlichia Chaffeensis Antibody Igg 963281 EHRLICHIA CHAFFEENSIS IGG <1:64 12/06/2018 Ehrlichia Chaffeensis Antibody Igm 467386 EHRLICHIA CHAFFEENSIS IGM < 1:16 12/06/2018 [place] Spotted Fever Igg/Igm 89078 3 SRIDEVI [place] SPOTTED FEVER IGM EIA . 12/06/2018 [place] Spotted Fever Igg/Igm 69383 3 RMSF, IGM <1:64 12/06/2018 [place] Spotted Fever Igg/Igm 50504 3 SRIDEVI MT SPOTTED FEVER IGG . 12/06/2018 [place] Spotted Fever Igg/Igm 03593 3 RMSF, IGG SCREEN-FLEX <1:64 12/06/2018 Kaitlin [id number] KAITLIN (FANNIE) S CREEN NONE DETECTED 019 Ra Factor Szh262 RA FACT OR <10 IU/ml 12/02/2018 [place] Western Blot Serum 961082 B. BURGDORFERI, IGG WB Negative 12/01/2018 [place] Western Blot Serum 518747 B. BURGDORFERI, IGM WB Negative 12/01/2018 [place] Disease Total Antibodies With Western Blot Refle x 392754 B. BURGDORFERI, IGG/IGM 1.02 11/29/2018 [place] Disease Total Antibodies With Western Blot Refle x 540867 INTERPRETATION 11/29/2018 Thyroid Antibodies 671037 THYROGLOBULIN ANTIBODY . 11/29/2018 Thyroid Antibodies 291638 THYROGLOBULIN ANTIBODY <10 IU/mL 11/29/2018 Thyroid Antibodies 536370 THYROID PEROXIDASE (TPO) AB . 11/29/2018 Thyroid Antibodies 073145 THYROID PEROXIDASE (TPO) AB 14 IU/mL 11/29/2018 Sed Rate Ord21 ESR 7 mm/hr 11/29/2018 [facility] Qual Ord68 BHCG Qual Negative 11/28/2018 Cbc With Differential Ord2 [...] 30.4 pg 11/28/2018 Cbc With Differential Ord2 [place]% 12.6 % 11/28/2018 Cbc With Differential Ord2 MCHC 33.8 pg 11/28/2018 Cbc With Differential Ord2 Eos% 0.9 % 11/28/2018 Cbc With Differential Ord2 Baso% 0.3 % 11/28/2018 Cbc With Differential Ord2 PLT 387 K/ul 11/28/2018 Cbc With Differential Ord2 RDW 13.1 % 11/28/2018 Cbc With Differential Ord2 Neut ABS# 6.99 K/ul 11/28/2018 Cbc With Differential Ord2 Lymph ABS# 3.25 K/ul 11/28/2018 Cbc With Differential Ord2 [place] ABS# 1.5 K/ul 11/28/2018 Cbc With Differential Ord2 Eos ABS# 0.1 K/ul 11/28/2018 Cbc With Differential Ord2 Baso ABS# 0.0 K/ul 11/28/2018 Free T4 Ibd208 FREE T4 0.63 ng/dL 11/28/2018 %Hba1C Jix464 % HbA1c 04413-2 4.7 % 11/28/2018 %Hba1C Wew481 Gluc Ave 88 mg/dL 11/28/2018 [place] Ibc545 MONO Negative 11/28/2018 C-Reactive Protein Qnt Crqnt [...] 1: 126/74 Code: 8480-6 BMI: 29.9 Code: 05342-7 Heart Rate 1: 95 bpm Height: 5'7" SpO2: 98% Temperature: 36.9 (C ) / 98.5 (F) Weight: 191 lbs 12/07/2018 Blood Pressure 1: 120/72 Code: 8480-6 BMI: 29.9 Code: 32200-8 Heart Rate 1: 104 bpm Height: 5'7" SpO2: 98% Weight: 191 lbs 11/24/2018 Blood Pressure 1: 122/64 Code: 8480-6 BMI: 29.4 Code: 73116-9 Heart Rate 1: 85 bpm Height: 5'7" [...] Diagnosis: Diarrhea, unspecified[ICD10: R19.7] Leyla Balderas MD, [facility] CPT-4: 15388 12/15/2018 [id number]) 18150 EST. P ATIENT, LEVEL IV Diagnosis: Elevated C-reactive protein (CRP)[ICD10: R79.82] Diagnosis: Monocytosis (symptomatic)[ICD10: D72.821] Diagnosis: Other elevated white blood cell count[ICD10: D72.828] Annmarie Balderas MD, [facility] CPT-4: 60096 12/07/2018 OFFICE VISIT, NEW - LEVEL 4 Diagnosis: Nipple discharge[ICD10: N64.52] Diagnosis: Other fatigue[ICD10: R53.83] Diagnosis: Other malaise[ICD10: R53.81] Diagnosis: Headache[ICD10: R51] Leyla Balderas MD, [facility] CPT-4: 63312 11/24/2018 Plan of Care Planned Activity Notes [...] pain. 12/15/2018 Appointment: [phone] [facility] (15 min) Moderate 12/15/2018 Patient Education: Patient [...] advised exercise. 12/07/2018 Appointment: Annmarie Balderas WPtel: [facility]5 [facility] (30 min) Complex 12/07/2018 Patient Education: Patient Medication Summary Completed 12/07/2018 Patient Education: Patient Medication Summary Completed 12/02/2018 Visit Plan: Nipple discharge, fatig ue, malaise, increasing migraines - will check labs and samples of nipple discharge - will treat as indicated - pt is to notify clinic with any changes, questions, or concerns. 11/24/2018 Appointment: Leyla Longoria WPtel: [facility]3 [facility] New Patient 11/24/2018 Patient Education: Patient Medication [...]
--- OUTSIDE RECORDS SUMMARY | 2019-12-14 02:09 | XMS REPORT | CCD ---
Author Author Eliana Longoria Organization Annmarie Balderas MD, [facility] Address [address] [place] [address] Phone Care Team Providers Care Watcher Lookout Tower Name Role Phone PP Unavailable CCM Unavailable Summary Purpose Interface Exchange Insurance Providers Payer name Policy type / Coverage type Covered green party ID Effective Begin Date Effective End Date AETNA Commercial Insurance [id number] Unknown Family history Father Diagnosis Age At Onset Depression Unknown Asthma Unknown Hypertension Unknown Hyperlipidemia Unknown Social History Social History Element Codes Description Effective Dates Marital status Unknown S kayley 11/24/2018 Number of children Unknown 0 11/24/[address]: 727993375 Never smoker 11/24/2018 Alcohol history Unknown occasionally drinks alcohol 11/24/2018 Frequency of drinks SNOMED CT: 521712862 1-4 drinks per week 11/24/2018 Allergies, Adverse Reactions, Alerts Substance Reaction Codes Entered Date Inactivated Date Status zithromax RxNorm: 316470 11/24/2018 No Inactive Date Active Past Medical [...] ondansetron 4 mg dis integrating tablet RxNorm: 730104 1 Tablet(s) PO TID as needed nausea and vomitting 12/15/2018 No Stop Date Active doxycycline hyclate 100 mg capsule RxNorm: 8485556 1 Capsule(s) PO BID 12/02/2018 12/15/2018 In active doxycycline hyclate 100 mg capsule RxNorm: 8616892 1 Capsule(s) PO BID 12/02/2018 12/01/2018 In active fluoxetine 60 mg tablet RxNorm: 2598566 1 Tablet(s) PO daily 11/24/2018 12/23/2018 Active Forfivo XL 450 mg ta blet,extended release RxNorm: 0399811 1 Tablet(s) PO daily No Start Date [...] 30.3 pg 12/15/2018 Cbc With Differential Ord2 [place]% 17.0 % 12/15/2018 Cbc With Differential Ord2 [...] 1.68 K/ul 12/15/2018 Cbc With Differential Ord2 [place] ABS# 1.1 K/ul 12/15/2018 Cbc With Differential Ord2 Eos ABS# 0.0 K/ul 12/15/2018 Cbc With Differential Ord2 Baso ABS# 0.0 K/ul 12/15/2018 Ehrlichia Chaffeensis Antibody Igg 585066 EHRLICHIA CHAFFEENSIS IGG <1:64 12/06/2018 Ehrlichia Chaffeensis Antibody Igm 194535 EHRLICHIA CHAFFEENSIS IGM < 1:16 12/06/2018 [place] Spotted Fever Igg/Igm 68977 3 SRIDEVI [place] SPOTTED FEVER IGM EIA . 12/06/2018 [place] Spotted Fever Igg/Igm 79904 3 RMSF, IGM <1:64 12/06/2018 [place] Spotted Fever Igg/Igm 14358 3 SRIDEVI MT SPOTTED FEVER IGG . 12/06/2018 [place] Spotted Fever Igg/Igm 99605 3 RMSF, IGG SCREEN-FLEX <1:64 12/06/2018 Kaitlin [id number] KAITLIN (FANNIE) S CREEN NONE DETECTED 019 Ra Factor Txs422 RA FACT OR <10 IU/ml 12/02/2018 [place] Western Blot Serum 599162 B. BURGDORFERI, IGG WB Negative 12/01/2018 [place] Western Blot Serum 720232 B. BURGDORFERI, IGM WB Negative 12/01/2018 [place] Disease Total Antibodies With Western Blot Refle x 316363 B. BURGDORFERI, IGG/IGM 1.02 11/29/2018 [place] Disease Total Antibodies With Western Blot Refle x 193437 INTERPRETATION 11/29/2018 Thyroid Antibodies 324266 THYROGLOBULIN ANTIBODY . 11/29/2018 Thyroid Antibodies 451951 THYROGLOBULIN ANTIBODY <10 IU/mL 11/29/2018 Thyroid Antibodies 359125 THYROID PEROXIDASE (TPO) AB . 11/29/2018 Thyroid Antibodies 997979 THYROID PEROXIDASE (TPO) AB 14 IU/mL 11/29/2018 [...] 30.4 pg 11/28/2018 Cbc With Differential Ord2 [place]% 12.6 % 11/28/2018 Cbc With Differential Ord2 [...] 3.25 K/ul 11/28/2018 Cbc With Differential Ord2 [place] ABS# 1.5 K/ul 11/28/2018 Cbc With Differential Ord2 Eos ABS# 0.1 K/ul 11/28/2018 Cbc With Differential Ord2 Baso ABS# 0.0 K/ul 11/28/2018 Free T4 Bto175 FREE T4 0.63 ng/dL 11/28/2018 %Hba1C Cnw059 % HbA1c 64221-1 4.7 % 11/28/2018 %Hba1C Cst9[address] Gl[address] 88 mg/dL 11/28/2018 [place] Zld247 MONO Negative 11/28/2018 C-Reactive Protein Qnt Crqnt [...] 1: 126/74 Code: 8480-6 BMI: 29.9 Code: 95518-2 Heart Rate 1: 95 bpm Height: 5'7" SpO2: 98% Temperature: 36.9 (C ) / 98.5 (F) Weight: 191 lbs 12/07/2018 Blood Pressure 1: 120/72 Code: 8480-6 BMI: 29.9 Code: 92301-8 Heart Rate 1: 104 bpm Height: 5'7" SpO2: 98% Weight: 191 lbs 11/24/2018 Blood Pressure 1: 122/64 Code: 8480-6 BMI: 29.4 Code: 34983-6 Heart Rate 1: 85 bpm Height: 5'7" [...] Diagnosis: Diarrhea, unspecified[ICD10: R19.7] Leyla Balderas MD, [facility] CPT-4: 35549 12/15/2018 [id number]) 65998 EST. P ATIENT, LEVEL IV Diagnosis: Elevated C-reactive protein (CRP)[ICD10: R79.82] Diagnosis: Monocytosis (symptomatic)[ICD10: D72.821] Diagnosis: Other elevated white blood cell count[ICD10: D72.828] Annmarie Balderas MD, [facility] CPT-4: 81880 12/07/2018 OFFICE VISIT, NEW - LEVEL 4 Diagnosis: Nipple discharge[ICD10: N64.52] Diagnosis: Other fatigue[ICD10: R53.83] Diagnosis: Other malaise[ICD10: R53.81] Diagnosis: Headache[ICD10: R51] Leyla Balderas MD, [facility] CPT-4: 72943 11/24/2018 Plan of Care Planned Activity Notes [...] pain. 12/15/2018 Appointment: [phone] (15 min) Moderate 12/15/2018 Patient Education: [...] advised exercise. 12/07/2018 Appointment: Annmarie Balderas WPtel: [facility]5 [facility] (30 min) Complex 12/07/2018 Patient Education: Patient Medication Summary Completed 12/07/2018 Patient Education: Patient Medication Summary Completed 12/02/2018 Visit Plan: Nipple discharge, fatig ue, malaise, increasing migraines - will check labs and samples of nipple discharge - will treat as indicated - pt is to notify clinic with any changes, questions, or concerns. 11/24/2018 Appointment: Leyla Longoria WPtel: [facility]8 [facility] New Patient 11/24/2018 Patient Education: Patient Medication [...]
--- OUTSIDE RECORDS SUMMARY | 2019-12-14 02:09 | XMS REPORT | CCD ---
Author Author Eliana Longoria Organization Annmarie Balderas MD, [facility] Address [address] [place] [address] Phone Care Team Providers Care Timber Appraiser Name Role Phone PP Unavailable CCM Unavailable Summary Purpose Interface Exchange Insurance Providers Payer name Policy type / Coverage type Covered republican ID Effective Begin Date Effective End Date AETNA Commercial Insurance [id number] Unknown Family history Father Diagnosis Age At Onset Depression Unknown Asthma Unknown Hypertension Unknown Hyperlipidemia Unknown Social History Social History Element Codes Description Effective Dates Marital status Unknown S kayley 11/24/2018 Number of children Unknown 0 11/24/[address]: 091701797 Never smoker 11/24/2018 Alcohol history Unknown occasionally drinks alcohol 11/24/2018 Frequency of drinks SNOMED CT: 340131168 1-4 drinks per week 11/24/2018 Allergies, Adverse Reactions, Alerts Substance Reaction Codes Entered Date Inactivated Date Status zithromax RxNorm: 048366 11/24/2018 No Inactive Date Active Past Medical History Illness Codes Condition Status Onset Date Resolved Date Monocytosis (symptom atic) ICD-9: 288.63 ICD-10: D72.821 [...] Condition Codes Effectiv e Dates Condition Status Monocytosis (symptom atic) ICD-9: 288.63 ICD-10: D72.821 [...] Instructions doxycycline hyclate 100 mg capsule RxNorm: 1839171 1 Capsule(s) PO BID 12/02/2018 12/15/2018 Ac tive doxycycline hyclate 100 mg capsule RxNorm: 7206746 1 Capsule(s) PO BID 12/02/2018 12/01/2018 In active fluoxetine 60 mg tablet RxNorm: 9036344 1 Tablet(s) PO daily 11/24/2018 12/23/2018 Active Forfivo XL 450 mg ta blet,extended release RxNorm: 0693186 1 Tablet(s) PO daily No Start Date Active Medication Administered No Medication Administered data Immunizations No Immunization data Assessments Condition Codes Effectiv e Dates Monocytosis (symptomatic) ICD-10: D7 2.821 ICD-9: 288.63 [...] Visit Reason For Visit Effective Dates Notes galactorrhea 12/07/2018 galactorrhea 11/24/2018 Results Observation Observation Code Item Item Code Result Date Ehrlichia Chaffeensis Antibody Igg 653057 EHRLICHIA CHAFFEENSIS IGG <1:64 12/06/2018 Ehrlichia Chaffeensis Antibody Igm 343174 EHRLICHIA CHAFFEENSIS IGM < 1:16 12/06/2018 [place] Spotted Fever Igg/Igm 27470 3 SRIDEVI MT SPOTTED FEVER IGM EIA . 12/06/2018 [place] Spotted Fever Igg/Igm 31429 3 RMSF, IGM <1:64 12/06/2018 [place] Spotted Fever Igg/Igm 09744 3 SRIDEVI MT SPOTTED FEVER IGG . 12/06/2018 [place] Spotted Fever Igg/Igm 12707 3 RMSF, IGG SCREEN-FLEX <1:64 12/06/2018 Kaitlin [id number] KAITLIN (FANNIE) S CREEN NONE DETECTED 019 Ra Factor Liq112 RA FACT OR <10 IU/ml 12/02/2018 [place] Western Blot Serum 500218 B. BURGDORFERI, IGG WB Negative 12/01/2018 [place] Western Blot Serum 265435 B. BURGDORFERI, IGM WB Negative 12/01/2018 [place]es Disease Total Antibodies With Western Blot Refle x 743964 B. BURGDORFERI, IGG/IGM 1.02 11/29/2018 [place] Disease Total Antibodies With Western Blot Refle x 837169 INTERPRETATION 11/29/2018 Thyroid Antibodies 975168 THYROGLOBULIN ANTIBODY . 11/29/2018 Thyroid Antibodies 423875 THYROGLOBULIN ANTIBODY <10 IU/mL 11/29/2018 Thyroid Antibodies 570005 THYROID PEROXIDASE (TPO) AB . 11/29/2018 Thyroid Antibodies 084511 THYROID PEROXIDASE (TPO) AB 14 IU/mL 11/29/2018 [...] 30.4 pg 11/28/2018 Cbc With Differential Ord2 [place]% 12.6 % 11/28/2018 Cbc With Differential Ord2 [...] 3.25 K/ul 11/28/2018 Cbc With Differential Ord2 [place] ABS# 1.5 K/ul 11/28/2018 Cbc With Differential Ord2 Eos ABS# 0.1 K/ul 11/28/2018 Cbc With Differential Ord2 Baso ABS# 0.0 K/ul 11/28/2018 Free T4 Iev371 FREE T4 0.63 ng/dL 11/28/2018 %Hba1C Ykp866 % HbA1c 19798-4 4.7 % 11/28/2018 %Hba1C Kot369 Gluc Ave 88 mg/dL 11/28/2018 [place] Aik886 MONO Negative 11/28/2018 C-Reactive Protein Qnt Crqnt CRP 0.7 mg/dl 11/28/2018 Total T3 Ord42 TT3 1.23 ng/ml 11/28/2018 Review of Systems System Result Effective Dates Constitutional No recent illness 12/07/2018 Constitutional No [...] benign 12/07/2018 None Full Exam - General 1995 Lymphatic neck nodes Overall: posterior cervical chain benign 12/07/2018 None Full Exam - General 1994 Constitutional general appearance Overall: well developed 11/24/2018 None Full Exam - General 1995 Constitutional general appearance Overall: in no acute [...] No Procedures data Vital Signs Date Vital 12/07/2018 Blood Pressure 1: 120/72 Code: 8480-6 BMI: 29.9 Code: 84820-8 Heart Rate 1: 104 bpm Height: 5'7" SpO2: 98% Weight: 191 lbs 11/24/2018 Blood Pressure 1: 122/64 Code: 8480-6 BMI: 29.4 Code: 57310-7 Heart Rate 1: 85 bpm Height: 5'7" SpO2: 98% Weight: 188 lbs Functional Status No Functional Status data History of Present Illness Symptom Name Status Resu lt Effective Date Notes Location in the left b reast 12/07/2018 [...] Encounters Encounter Performer Loca tion Codes Date (91331) 15285 EST. P ATIENT, LEVEL IV Diagnosis: Elevated C-reactive protein (CRP)[ICD10: R79.82] Diagnosis: Monocytosis (symptomatic)[ICD10: D72.821] Diagnosis: Other elevated white blood cell count[ICD10: D72.828] Annmarie Balderas MD, [facility] CPT-4: 36293 12/07/2018 OFFICE VISIT, NEW - LEVEL 4 Diagnosis: Nipple discharge[ICD10: N64.52] Diagnosis: Other fatigue[ICD10: R53.83] Diagnosis: Other malaise[ICD10: R53.81] Diagnosis: Headache[ICD10: R51] Leyla Balderas MD, [facility] CPT-4: 82899 11/24/2018 Plan of Care Planned Activity Notes C odes Status Date Patient Education: Patient Medication Summary Completed 12/13/2018 Care Plan: Cbc With Differential Pending 12/13/2018 Visit Plan: Elevated Monocytosis, L eukocytosis - discussed with pt and her mom - order for Isaiah Elder Virus panel sent to pharmacy. Continue with doxycycline - rx for treatment of possible tic borne illness. Ja ht gain/obesity - pt has a bad [...] advised exercise. 12/07/2018 [facility] [phone] [facility] ([facility] Complex 12/07/2018 Patient Education: Patient Medication Summary Completed 12/07/2018 Patient Education: Patient Medication Summary Completed 12/02/2018 Visit Plan: Nipple discharge, fatig ue, malaise, increasing migraines - will check labs and samples of nipple discharge - will treat as indicated - pt is to notify clinic with any changes, questions, or concerns. 11/24/2018 Appointment: [facility] [phone] [facility] New Patient 11/24/2018 Patient Education: Patient Medication Summary Completed 11/24/2018 Instructions Comment . Elevated Monocytos is, Leukocytosis - discussed with pt and her mom - order for Isaiah Edler Virus panel sent to pharmacy. Continue with [...]
--- OUTSIDE RECORDS SUMMARY | 2019-12-14 02:09 | XMS REPORT | CCD ---
Author Author Eliana Longoria Organization Annmarie Balderas MD, [facility] Address [address] [place] [address] Phone Care Team Providers Care Pharmacy Picking Tech Name Role Phone PP Unavailable CCM Unavailable Summary Purpose Interface Exchange Insurance Providers Payer name Policy type / Coverage type Covered alliance party ID Effective Begin Date Effective End Date AETNA Commercial Insurance [id number] Unknown Family history Father Diagnosis Age At Onset Depression Unknown Asthma Unknown Hypertension Unknown Hyperlipidemia Unknown Social History Social History Element Codes Description Effective Dates Marital status Unknown S kayley 11/24/2018 Number of children Unknown 0 11/24/[address]: 402396729 Never smoker 11/24/2018 Alcohol history Unknown occasionally drinks alcohol 11/24/2018 Frequency of drinks SNOMED CT: 853140564 1-4 drinks per week 11/24/2018 Allergies, Adverse Reactions, Alerts Substance Reaction Codes Entered Date Inactivated Date Status zithromax RxNorm: 217030 11/24/2018 No Inactive Date Active Past Medical [...] Instructions doxycycline hyclate 100 mg capsule RxNorm: 1922797 1 Capsule(s) PO BID x 2 weeks, then daily x 1 month 01/18/2019 No Stop Date Active VSL#3 112.5 billion cell capsule RxNorm: 1 Capsule(s) PO daily 12/16/2018 No Stop Date Active ondansetron 4 mg dis integrating tablet RxNorm: 480705 1 Tablet(s) PO TID as needed nausea and vomitting 12/15/2018 No Stop Date Active doxycycline hyclate 100 mg capsule RxNorm: 5058107 1 Capsule(s) PO BID 12/02/2018 12/15/2018 In active doxycycline hyclate 100 mg capsule RxNorm: 6732061 1 Capsule(s) PO BID 12/02/2018 12/01/2018 In active fluoxetine 60 mg tablet RxNorm: 7835861 1 Tablet(s) PO daily 11/24/2018 12/23/2018 Inactive Forfivo XL 450 mg ta blet,extended release RxNorm: 7060482 1 Tablet(s) PO daily No Start Date [...] 30.3 pg 12/15/2018 Cbc With Differential Ord2 [place]% 17.0 % 12/15/2018 Cbc With Differential Ord2 [...] 1.68 K/ul 12/15/2018 Cbc With Differential Ord2 [place] ABS# 1.1 K/ul 12/15/2018 Cbc With Differential Ord2 Eos ABS# 0.0 K/ul 12/15/2018 Cbc With Differential Ord2 Baso ABS# 0.0 K/ul 12/15/2018 Ehrlichia Chaffeensis Antibody Igg 853989 EHRLICHIA CHAFFEENSIS IGG <1:64 12/06/2018 Ehrlichia Chaffeensis Antibody Igm 599349 EHRLICHIA CHAFFEENSIS IGM < 1:16 12/06/2018 [place] Spotted Fever Igg/Igm 90590 3 SRIDEVI MT SPOTTED FEVER IGM EIA . 12/06/2018 [place] Spotted Fever Igg/Igm 57474 3 RMSF, IGM <1:64 12/06/2018 [place] Spotted Fever Igg/Igm 16158 3 SRIDEVI MT SPOTTED FEVER IGG . 12/06/2018 [place] Spotted Fever Igg/Igm 88623 3 RMSF, IGG SCREEN-FLEX <1:64 12/06/2018 Kaitlin [id number] KAITLIN (FANNIE) S CREEN NONE DETECTED 019 Ra Factor Kbf759 RA FACT OR <10 IU/ml 12/02/2018 [place] Western Blot Serum 724235 B. BURGDORFERI, IGG WB Negative 12/01/2018 [place] Western Blot Serum 536244 B. BURGDORFERI, IGM WB Negative 12/01/2018 [place]es Disease Total Antibodies With Western Blot Refle x 830866 B. BURGDORFERI, IGG/IGM 1.02 11/29/2018 [place] Disease Total Antibodies With Western Blot Refle x 999674 INTERPRETATION 11/29/2018 Thyroid Antibodies 015074 THYROGLOBULIN ANTIBODY . 11/29/2018 Thyroid Antibodies 146658 THYROGLOBULIN ANTIBODY <10 IU/mL 11/29/2018 Thyroid Antibodies 466431 THYROID PEROXIDASE (TPO) AB . 11/29/2018 Thyroid Antibodies 737177 THYROID PEROXIDASE (TPO) AB 14 IU/mL 11/29/2018 [...] 30.4 pg 11/28/2018 Cbc With Differential Ord2 [place]% 12.6 % 11/28/2018 Cbc With Differential Ord2 [...] 3.25 K/ul 11/28/2018 Cbc With Differential Ord2 [place] ABS# 1.5 K/ul 11/28/2018 Cbc With Differential Ord2 Eos ABS# 0.1 K/ul 11/28/2018 Cbc With Differential Ord2 Baso ABS# 0.0 K/ul 11/28/2018 Free T4 Iip867 FREE T4 0.63 ng/dL 11/28/2018 %Hba1C Cma922 % HbA1c 54499-2 4.7 % 11/28/2018 %Hba1C Zyc067 Gluc Ave 88 mg/dL 11/28/2018 [place] Zbt081 MONO Negative 11/28/2018 C-Reactive Protein Qnt Crqnt [...] 1: 126/74 Code: 8480-6 BMI: 29.9 Code: 15770-2 Heart Rate 1: 95 bpm Height: 5'7" SpO2: 98% Temperature: 36.9 (C ) / 98.5 (F) Weight: 191 lbs 12/07/2018 Blood Pressure 1: 120/72 Code: 8480-6 BMI: 29.9 Code: 33900-5 Heart Rate 1: 104 bpm Height: 5'7" SpO2: 98% Weight: 191 lbs 11/24/2018 Blood Pressure 1: 122/64 Code: 8480-6 BMI: 29.4 Code: 96152-1 Heart Rate 1: 85 bpm Height: 5'7" [...] Encounters Encounter Performer Loca tion Codes Date 96611 EST. PATIENT, LEVEL III Diagnosis: Other specified intestinal infections[ICD10: A08.8] Diagnosis: Diarrhea, unspecified[ICD10: R19.7] Leyla Balderas MD, [facility] CPT-4: 59242 12/15/2018 ([id number] 04541 EST. P ATIENT, LEVEL IV Diagnosis: Elevated C-reactive protein (CRP)[ICD10: R79.82] Diagnosis: Monocytosis (symptomatic)[ICD10: D72.821] Diagnosis: Other elevated white blood cell count[ICD10: D72.828] Annmarie Balderas MD, [facility] CPT-4: 73359 12/07/2018 OFFICE VISIT, NEW - LEVEL 4 Diagnosis: Nipple discharge[ICD10: N64.52] Diagnosis: Other fatigue[ICD10: R53.83] Diagnosis: Other malaise[ICD10: R53.81] Diagnosis: Headache[ICD10: R51] Leyla Balderas MD, [facility] CPT-4: 05255 11/24/2018 Plan of Care Planned Activity Notes [...] stomach pain. 12/15/2018 Appointment: Leyla Longoria WPtel: [facility] (15 min) Moderate 12/15/2018 Patient Education: Patient [...] advised exercise. 12/07/2018 Appointment: Annmarie Balderas WPtel: [facility] (30 min) Complex 12/07/2018 Patient Education: Patient Medication Summary Completed 12/07/2018 Patient Education: Patient Medication Summary Completed 12/02/2018 Visit Plan: Nipple discharge, fatig ue, malaise, increasing migraines - will check labs and samples of nipple discharge - will treat as indicated - pt is to notify clinic with any changes, questions, or concerns. 11/24/2018 Appointment: Leyla Longoria WPtel: [facility] New Patient 11/24/2018 Patient Education: Patient Medication [...] clinic with any changes, questions, or concerns. Take antibiotic with food. Gastroenteritis - discussed [...]
--- OUTSIDE RECORDS SUMMARY | 2019-12-14 02:10 | XMS REPORT | CCD ---
Author Author Eliana Longoria Organization Annmarie Balderas MD, [facility] Address [address] [place] [address] Phone Care Team Providers Care Manager Studio Name Role Phone PP Unavailable CCM Unavailable Summary Purpose Interface Exchange Insurance Providers Payer name Policy type / Coverage type Covered constitution party ID Effective Begin Date Effective End Date AETNA Commercial Insurance [id number] Unknown Family history Father Diagnosis Age At Onset Depression Unknown Asthma Unknown Hypertension Unknown Hyperlipidemia Unknown Social History Social History Element Codes Description Effective Dates Marital status Unknown S kayley 11/24/2018 Number of children Unknown 0 11/24/[address]: 049546651 Never smoker 11/24/2018 Alcohol history Unknown occasionally drinks alcohol 11/24/2018 Frequency of drinks SNOMED CT: 287685278 1-4 drinks per week 11/24/2018 Allergies, Adverse Reactions, Alerts Substance Reaction Codes Entered Date Inactivated Date Status zithromax RxNorm: 387000 11/24/2018 No Inactive Date Active Past Medical History Illness Codes Condition Status Onset Date Resolved Date Elevated C-reactive protein (CRP) ICD-9: 790.95 ICD-10: R79.82 Active 12/02/2018 Unknown Other fatigue ICD-9: 780.79 ICD-10: R53.83 Active 11/24/2018 Unknown Other malaise ICD-9: 780.79 ICD-10: R53.81 Active 11/24/2018 Unknown Headache ICD-9: 784.0 ICD-10: R51 Active 11/24/2018 Unknown Nipple discharge ICD-9: 611.79 ICD-10: N64.52 Active 11/24/2018 Unknown Problems Condition Codes Effectiv e Dates Condition Status Elevated C-reactive protein (CRP) ICD-9: 790.95 ICD-10: R79.82 12/02/2018 Active Other fatigue ICD-9: 780.79 ICD-10: R53.83 11/24/2018 Active Other malaise ICD-9: 780.79 ICD-10: R53.81 11/24/2018 Active Headache ICD-9: 784.0 ICD-10: R51 11/24/2018 Active Nipple discharge ICD-9: 611.79 ICD-10: N64.52 11/24/2018 Active Medications Medication Codes Instruc tions Start Date Stop Date Sta tus Fill Instructions fluoxetine 60 mg tablet RxNorm: 1101221 1 Tablet(s) PO daily 11/24/2018 12/23/2018 Active Forfivo XL 450 mg ta blet,extended release RxNorm: 7756769 1 Tablet(s) PO daily No Start Date Active Medication Administered No Medication Administered data Immunizations No Immunization data Assessments Condition Codes Effectiv e Dates Elevated C-reactive protein (CRP) IC D-10: R79.82 ICD-9: 790.95 12/02/2018 Other fatigue ICD-10: R53.83 ICD-9: 780.79 12/02/2018 Other malaise ICD-10: R53.81 ICD-9: 780.79 12/02/2018 Headache ICD-10: R51 ICD-9: 784.0 11/24/2018 Nipple discharge ICD-10: N64.52 ICD-9: 611.79 11/24/2018 Reason For Visit Reason For Visit Effective Dates Notes galactorrhea 11/24/2018 Results Observation Observation Code Item Item Code Result Date [place] Western Blot Serum 298721 B. BURGDORFERI, IGG WB Negative 12/01/2018 [place] Western Blot Serum 281371 B. BURGDORFERI, IGM WB Negative 12/01/2018 [place] Disease Total Antibodies With Western Blot Refle x 419168 B. BURGDORFERI, IGG/IGM 1.02 11/29/2018 [place] Disease Total Antibodies With Western Blot Refle x 332354 INTERPRETATION 11/29/2018 Thyroid Antibodies 418484 THYROGLOBULIN ANTIBODY . 11/29/2018 Thyroid Antibodies 367549 THYROGLOBULIN ANTIBODY <10 IU/mL 11/29/2018 Thyroid Antibodies 794308 THYROID PEROXIDASE (TPO) AB . 11/29/2018 Thyroid Antibodies 597140 THYROID PEROXIDASE (TPO) AB 14 IU/mL 11/29/2018 [...] 30.4 pg 11/28/2018 Cbc With Differential Ord2 [place]% 12.6 % 11/28/2018 Cbc With Differential Ord2 [...] 3.25 K/ul 11/28/2018 Cbc With Differential Ord2 [place] ABS# 1.5 K/ul 11/28/2018 Cbc With Differential Ord2 Eos ABS# 0.1 K/ul 11/28/2018 Cbc With Differential Ord2 Baso ABS# 0.0 K/ul 11/28/2018 Free T4 Dns250 FREE T4 0.63 ng/dL 11/28/2018 %Hba1C Vcs960 % HbA1c 70899-0 4.7 % 11/28/2018 %Hba1C Obe[address] Gluc [address] 88 mg/dL 11/28/2018 [place] Lxo946 MONO Negative 11/28/2018 C-Reactive Protein Qnt Crqnt CRP 0.7 mg/dl 11/28/2018 Total T3 Ord42 TT3 1.23 ng/ml 11/28/2018 Review of Systems System Result Effective Dates Constitutional No recent illness 11/24/2018 Constitutional No [...] None Full Exam - General 1995 Ears/Nose/Throat lips/teeth/gingiva Overall: benign lips 11/24/2018 None Full Exam - General 1994 Respiratory respiratory effort/rhythm Overall: normal rate 11/24/2018 None Full Exam - General 1994 Respiratory respiratory effort/rhythm Overall: no retractions 11/24/2018 None Full Exam - General 1994 Respiratory auscultation Overall: breath sounds clear bilaterally 11/24/2018 None Full Exam - General 1995 Cardiovascular auscultation of heart Overall: regular rate [...] No Procedures data Vital Signs Date Vital 11/24/2018 Blood Pressure 1: 122/64 Code: 8480-6 BMI: 29.4 Code: 20910-0 Heart Rate 1: 85 bpm Height: 5'7" SpO2: 98% Weight: 188 lbs Functional Status No Functional Status data History of Present Illness Symptom Name Status Resu lt Effective Date Notes Location in the left b reast 11/24/2018 [...] Encounters Encounter Performer Loca tion Codes Date OFFICE VISIT, NEW - LEVEL 4 Diagnosis: Nipple discharge[ICD10: N64.52] Diagnosis: Other fatigue[ICD10: R53.83] Diagnosis: Other malaise[ICD10: R53.81] Diagnosis: Headache[ICD10: R51] Leyla Balderas MD, [facility] CPT-4: 21139 11/24/2018 Plan of Care Planned Activity Notes C odes Status Date Patient Education: Patient Medication Summary Completed 12/02/2018 Care Plan: Ra Factor Pending 12/02/2018 Care Plan: Kaitlin Pending 12/02/2018 Visit Plan: Nipple discharge, fatig ue, malaise, increasing migraines - will check labs and samples of nipple discharge - will treat as indicated - pt is to notify clinic with any changes, questions, or concerns. 11/24/2018 Appointment: Leyla Longoria WPtel: [address] [place], [place] [address] New Patient 11/24/2018 Patient Education: Patient Medication Summary Completed 11/24/2018 Instructions Comment . Nipple discharge, fatigue, malaise, increasing migraines - will check labs and samples of nipple discharge - will treat as indicated - pt is to notify clinic with any changes, questions, or concerns.
--- OUTSIDE RECORDS SUMMARY | 2019-12-14 02:10 | XMS REPORT | CCD ---
Author Author Eliana Longoria Organization Annmarie Balderas MD, [facility] Address [address] [place] [address] Phone Care Team Providers Care Mold Shaker Name Role Phone PP Unavailable CCM Unavailable Summary Purpose Interface Exchange Insurance Providers Payer name Policy type / Coverage type Covered alliance party ID Effective Begin Date Effective End Date AETNA Commercial Insurance [id number] Unknown Family history Father Diagnosis Age At Onset Depression Unknown Asthma Unknown Hypertension Unknown Hyperlipidemia Unknown Social History Social History Element Codes Description Effective Dates Marital status Unknown S kayley 11/24/2018 Number of children Unknown 0 11/24/[address]: 392530061 Never smoker 11/24/2018 Alcohol history Unknown occasionally drinks alcohol 11/24/2018 Frequency of drinks SNOMED CT: 042079399 1-4 drinks per week 11/24/2018 Allergies, Adverse Reactions, Alerts Substance Reaction Codes Entered Date Inactivated Date Status zithromax RxNorm: 807752 11/24/2018 No Inactive Date Active Past Medical [...] Instructions doxycycline hyclate 100 mg capsule RxNorm: 4375303 1 Capsule(s) PO BID 12/02/2018 12/15/2018 Ac tive doxycycline hyclate 100 mg capsule RxNorm: 8978722 1 Capsule(s) PO BID 12/02/2018 12/01/2018 In active fluoxetine 60 mg tablet RxNorm: 5056415 1 Tablet(s) PO daily 11/24/2018 12/23/2018 Active Forfivo XL 450 mg ta blet,extended release RxNorm: 7910215 1 Tablet(s) PO daily No Start Date [...] Code Result Date [place] Western Blot Serum 580839 B. BURGDORFERI, IGG WB Negative 12/01/2018 [place] Western Blot Serum 564989 B. BURGDORFERI, IGM WB Negative 12/01/2018 Lymes Disease Total Antibodies With Western Blot Refle x 597552 B. BURGDORFERI, IGG/IGM 1.02 11/29/2018 Lymes Disease Total Antibodies With Western Blot Refle x 840317 INTERPRETATION 11/29/2018 Thyroid Antibodies 351202 THYROGLOBULIN ANTIBODY . 11/29/2018 Thyroid Antibodies 517847 THYROGLOBULIN ANTIBODY <10 IU/mL 11/29/2018 Thyroid Antibodies 836614 THYROID PEROXIDASE (TPO) AB . 11/29/2018 Thyroid Antibodies 442767 THYROID PEROXIDASE (TPO) AB 14 IU/mL 11/29/2018 Sed Rate Ord21 ESR 7 mm/hr 11/29/2018 [facility] [place] Ord68 [facility] Qual Negative 11/28/2018 Cbc With Differential Ord2 [...] 30.4 pg 11/28/2018 Cbc With Differential Ord2 [place]% 12.6 % 11/28/2018 Cbc With Differential Ord2 [...] 3.25 K/ul 11/28/2018 Cbc With Differential Ord2 [place] ABS# 1.5 K/ul 11/28/2018 Cbc With Differential Ord2 Eos ABS# 0.1 K/ul 11/28/2018 Cbc With Differential Ord2 Baso ABS# 0.0 K/ul 11/28/2018 Free T4 Zlo987 FREE T4 0.63 ng/dL 11/28/2018 %Hba1C Zva003 % HbA1c 87403-0 4.7 % 11/28/2018 %Hba1C Onw[address] Gluc Ave 88 mg/dL 11/28/2018 [place] Eps497 MONO Negative 11/28/2018 C-Reactive Protein Qnt Crqnt [...] 1: 122/64 Code: 8480-6 BMI: 29.4 Code: 34618-2 Heart Rate 1: 85 bpm Height: 5'7" [...] R53.81] Diagnosis: Headache[ICD10: R51] [facility] CPT-4: 05242 11/24/2018 Plan of Care Planned Activity Notes [...] or concerns. 11/24/2018 Appointment: Leyla Longoria WPtel: [address] [place], [place] [address] New Patient 11/24/2018 Patient Education: Patient Medication Summary Completed 11/24/2018 Instructions Comment . Nipple discharge, fatigue, malaise, increasing migraines - will check labs and samples of nipple discharge - will treat as indicated - pt is to notify clinic with any changes, questions, or concerns.
--- OUTSIDE RECORDS SUMMARY | 2019-12-14 02:10 | XMS REPORT | CCD ---
Author Author Eliana Longoria Organization Annmarie Balderas MD, [facility] Address [address] [place] [address] Phone Care Team Providers Care Head Animal Trainer Name Role Phone PP Unavailable CCM Unavailable Summary Purpose Interface Exchange Insurance Providers Payer name Policy type / Coverage type Covered democrat ID Effective Begin Date Effective End Date AETNA Commercial Insurance [id number] Unknown Family history Father Diagnosis Age At Onset Depression Unknown Asthma Unknown Hypertension Unknown Hyperlipidemia Unknown Social History Social History Element Codes Description Effective Dates Marital status Unknown S kayley 11/24/2018 Number of children Unknown 0 11/24/[address]: 756060724 Never smoker 11/24/2018 Alcohol history Unknown occasionally drinks alcohol 11/24/2018 Frequency of drinks SNOMED CT: 994687388 1-4 drinks per week 11/24/2018 Allergies, Adverse Reactions, Alerts Substance Reaction Codes Entered Date Inactivated Date Status zithromax RxNorm: 170454 11/24/2018 No Inactive Date Active Past Medical [...] Instructions doxycycline hyclate 100 mg capsule RxNorm: 5270613 1 Capsule(s) PO BID 12/02/2018 12/15/2018 Ac tive doxycycline hyclate 100 mg capsule RxNorm: 5249433 1 Capsule(s) PO BID 12/02/2018 12/01/2018 In active fluoxetine 60 mg tablet RxNorm: 1162825 1 Tablet(s) PO daily 11/24/2018 12/23/2018 Active Forfivo XL 450 mg ta blet,extended release RxNorm: 0687948 1 Tablet(s) PO daily No Start Date Active Medication Administered No Medication Administered data Immunizations No Immunization data Assessments Condition Codes Effectiv e Dates Elevated C-reactive protein (CRP) IC D-10: R79.82 ICD-9: 790.95 12/02/2018 Other fatigue ICD-10: R53.83 ICD-9: 780.79 12/02/2018 Other malaise ICD-10: R53.81 ICD-9: 780.79 12/02/2018 Nipple discharge ICD-10: N64.52 ICD-9: 611.79 11/24/2018 Headache ICD-10: R51 ICD-9: 784.0 11/24/2018 Reason For Visit Reason For Visit Effective Dates Notes galactorrhea 11/24/2018 Results Observation Observation Code Item Item Code Result Date Kaitlin [id number] KAITLIN (FANNIE) S CREEN NONE DETECTED 019 Ra Factor [id number] RA FACT OR <10 IU/ml 12/02/2018 [place] Western Blot Serum 659522 B. BURGDORFERI, IGG WB Negative 12/01/2018 [place] Western Blot Serum 545405 B. BURGDORFERI, IGM WB Negative 12/01/2018 [facility] Total Antibodies With Western Blot Refle x 136964 B. BURGDORFERI, IGG/IGM 1.02 11/29/2018 [facility] Total Antibodies With Western Blot Refle x 859857 INTERPRETATION 11/29/2018 Thyroid Antibodies 866200 THYROGLOBULIN ANTIBODY . 11/29/2018 Thyroid Antibodies 762445 THYROGLOBULIN ANTIBODY <10 IU/mL 11/29/2018 Thyroid Antibodies 634354 THYROID PEROXIDASE (TPO) AB . 11/29/2018 Thyroid Antibodies 455131 THYROID PEROXIDASE (TPO) AB 14 IU/mL 11/29/2018 Sed Rate Ord21 ESR 7 mm/hr 11/29/2018 [facility] [place] Ord68 [facility] Qual Negative 11/28/2018 Cbc With Differential Ord2 [...] 30.4 pg 11/28/2018 Cbc With Differential Ord2 [place]% 12.6 % 11/28/2018 Cbc With Differential Ord2 [...] 3.25 K/ul 11/28/2018 Cbc With Differential Ord2 [place] ABS# 1.5 K/ul 11/28/2018 Cbc With Differential Ord2 Eos ABS# 0.1 K/ul 11/28/2018 Cbc With Differential Ord2 Baso ABS# 0.0 K/ul 11/28/2018 Free T4 Vds109 FREE T4 0.63 ng/dL 11/28/2018 %Hba1C Yic103 % HbA1c 95079-9 4.7 % 11/28/2018 %Hba1C Kyz[address] Gluc [address] 88 mg/dL 11/28/2018 [place] Utt620 MONO Negative 11/28/2018 C-Reactive Protein Qnt Crqnt [...] 1: 122/64 Code: 8480-6 BMI: 29.4 Code: 76934-8 Heart Rate 1: 85 bpm Height: 5'7" [...] Performer Loca tion Codes Date OFFICE VISIT, [facility] - LEVEL 4 Diagnosis: Nipple discharge[ICD10: N64.52] Diagnosis: Other fatigue[ICD10: R53.83] Diagnosis: Other malaise[ICD10: R53.81] Diagnosis: Headache[ICD10: R51] Leyla Balderas MD, [facility] CPT-4: 44071 11/24/2018 Plan of Care Planned Activity Notes C odes Status Date Patient Education: Patient Medication Summary Completed 12/02/2018 Visit Plan: Nipple discharge, fatig ue, malaise, increasing migraines - will check labs and samples of nipple discharge - will treat as indicated - pt is to notify clinic with any changes, questions, or concerns. 11/24/2018 Appointment: Leyla Longoria WPtel: [address] [place], [place] [id number] New Patient 11/24/2018 Patient Education: Patient Medication Summary Completed 11/24/2018 Instructions Comment . Nipple discharge, fatigue, malaise, increasing migraines - will check labs and samples of nipple discharge - will treat as indicated - pt is to notify clinic with any changes, questions, or concerns.
--- OUTSIDE RECORDS SUMMARY | 2019-12-14 02:10 | XMS REPORT | CCD ---
Author Author Eliana Longoria Organization Annmarie Balderas MD, [facility] Address [address] [place] [address] Phone Care Team Providers Care Residence Hall Director Name Role Phone PP Unavailable CCM Unavailable Summary Purpose Interface Exchange Insurance Providers Payer name Policy type / Coverage type Covered republican ID Effective Begin Date Effective End Date AETNA Commercial Insurance [id number] Unknown Family history Father Diagnosis Age At Onset Depression Unknown Asthma Unknown Hypertension Unknown Hyperlipidemia Unknown Social History Social History Element Codes Description Effective Dates Marital status Unknown S kayley 11/24/2018 Number of children Unknown 0 11/24/[address]: 385736963 Never smoker 11/24/2018 Alcohol history Unknown occasionally drinks alcohol 11/24/2018 Frequency of drinks SNOMED CT: 108686542 1-4 drinks per week 11/24/2018 Allergies, Adverse Reactions, Alerts Substance Reaction Codes Entered Date Inactivated Date Status zithromax RxNorm: 979754 11/24/2018 No Inactive Date Active Past Medical [...] Instructions doxycycline hyclate 100 mg capsule RxNorm: 4170028 1 Capsule(s) PO BID 12/02/2018 12/15/2018 Ac tive doxycycline hyclate 100 mg capsule RxNorm: 6682856 1 Capsule(s) PO BID 12/02/2018 12/01/2018 In active fluoxetine 60 mg tablet RxNorm: 4330879 1 Tablet(s) PO daily 11/24/2018 12/23/2018 Active Forfivo XL 450 mg ta blet,extended release RxNorm: 3087212 1 Tablet(s) PO daily No Start Date [...] Observation Code Item Item Code Result Date Ra Factor [id number] RA FACT OR <10 IU/ml 12/02/2018 [place] Western Blot Serum 118290 B. BURGDORFERI, IGG WB Negative 12/01/2018 [place] Western Blot Serum 256386 B. BURGDORFERI, IGM WB Negative 12/01/2018 [facility] Total Antibodies With Western Blot Refle x 954182 B. BURGDORFERI, IGG/IGM 1.02 11/29/2018 [facility] Total Antibodies With Western Blot Refle x 594890 INTERPRETATION 11/29/2018 Thyroid Antibodies 678050 THYROGLOBULIN ANTIBODY . 11/29/2018 Thyroid Antibodies 110931 THYROGLOBULIN ANTIBODY <10 IU/mL 11/29/2018 Thyroid Antibodies 428158 THYROID PEROXIDASE (TPO) AB . 11/29/2018 Thyroid Antibodies 023216 THYROID PEROXIDASE (TPO) AB 14 IU/mL 11/29/2018 Sed Rate Ord21 ESR 7 mm/hr 11/29/2018 [facility] Qual Ord68 [facility] Qual Negative 11/28/2018 Cbc With Differential Ord2 [...] 30.4 pg 11/28/2018 Cbc With Differential Ord2 [place]% 12.6 % 11/28/2018 Cbc With Differential Ord2 [...] 3.25 K/ul 11/28/2018 Cbc With Differential Ord2 [place] ABS# 1.5 K/ul 11/28/2018 Cbc With Differential Ord2 Eos ABS# 0.1 K/ul 11/28/2018 Cbc With Differential Ord2 Baso ABS# 0.0 K/ul 11/28/2018 Free T4 Gza593 FREE T4 0.63 ng/dL 11/28/2018 %Hba1C Vhn280 % HbA1c 42897-8 4.7 % 11/28/2018 %Hba1C Qij[address] Gluc [address] 88 mg/dL 11/28/2018 [place] Swh330 MONO Negative 11/28/2018 C-Reactive Protein Qnt Crqnt [...] 1: 122/64 Code: 8480-6 BMI: 29.4 Code: 97399-4 Heart Rate 1: 85 bpm Height: 5'7" [...] R53.81] Diagnosis: Headache[ICD10: R51] Leyla Balderas MD, [facility] CPT-4: 30532 11/24/2018 Plan of Care Planned Activity Notes C odes Status Date Patient Education: Patient Medication Summary Completed 12/02/2018 Care Plan: Kaitlin Pending 12/02/2018 Visit Plan: Nipple discharge, fatig ue, malaise, increasing migraines - will check labs and samples of nipple discharge - will treat as indicated - pt is to notify clinic with any changes, questions, or concerns. 11/24/2018 Appointment: Leyla Longoria WPtel: [address] [place], [place] [id number] New Patient 11/24/2018 Patient Education: Patient Medication Summary Completed 11/24/2018 Instructions Comment . Nipple discharge, fatigue, malaise, increasing migraines - will check labs and samples of nipple discharge - will treat as indicated - pt is to notify clinic with any changes, questions, or concerns.
--- OUTSIDE RECORDS SUMMARY | 2019-12-14 02:10 | XMS REPORT | CCD ---
Author Author Eliana Longoria Organization Annmarie Balderas MD, [facility] Address [address] [place] [address] Phone Care Team Providers Care Lighting Adviser Name Role Phone PP Unavailable CCM Unavailable Summary Purpose Interface Exchange Insurance Providers Payer name Policy type / Coverage type Covered green party ID Effective Begin Date Effective End Date AETNA Commercial Insurance [id number] Unknown Family history Father Diagnosis Age At Onset Depression Unknown Asthma Unknown Hypertension Unknown Hyperlipidemia Unknown Social History Social History Element Codes Description Effective Dates Marital status Unknown S kayley 11/24/2018 Number of children Unknown 0 11/24/[address]: 223893050 Never smoker 11/24/2018 Alcohol history Unknown occasionally drinks alcohol 11/24/2018 Frequency of drinks SNOMED CT: 168746547 1-4 drinks per week 11/24/2018 Allergies, Adverse Reactions, Alerts Substance Reaction Codes Entered Date Inactivated Date Status zithromax RxNorm: 113154 11/24/2018 No Inactive Date Active Past Medical History Illness Codes Condition Status Onset Date Resolved Date Headache ICD-9: 784.0 ICD-10: R51 Active 11/24/2018 Unknown Nipple discharge ICD-9: 611.79 ICD-10: N64.52 Active 11/24/2018 Unknown Other fatigue ICD-9: 780.79 ICD-10: R53.83 Active 11/24/2018 Unknown Other malaise ICD-9: 780.79 ICD-10: R53.81 Active 11/24/2018 Unknown Problems Condition Codes Effectiv e Dates Condition Status Headache ICD-9: 784.0 ICD-10: R51 11/24/2018 Active Nipple discharge ICD-9: 611.79 ICD-10: N64.52 11/24/2018 Active Other fatigue ICD-9: 780.79 ICD-10: R53.83 11/24/2018 Active Other malaise ICD-9: 780.79 ICD-10: R53.81 11/24/2018 Active Medications Medication Codes Instruc tions Start Date Stop Date Sta tus Fill Instructions fluoxetine 60 mg tablet RxNorm: 4547105 1 Tablet(s) PO daily 11/24/2018 12/23/2018 Active Forfivo XL 450 mg ta blet,extended release RxNorm: 3237178 1 Tablet(s) PO daily No Start Date Active Medication Administered No Medication Administered data Immunizations No Immunization data Assessments Condition Codes Effectiv e Dates Other fatigue ICD-10: R53.83 ICD-9: 780.79 11/24/2018 Other malaise ICD-10: R53.81 ICD-9: 780.79 11/24/2018 Headache ICD-10: R51 ICD-9: 784.0 11/24/2018 Nipple discharge ICD-10: N64.52 ICD-9: 611.79 11/24/2018 Reason For Visit Reason For Visit Effective Dates Notes galactorrhea 11/24/2018 Results Observation Observation Code Item Item Code Result Date [place] Western Blot Serum 354343 B. BURGDORFERI, IGG WB Negative 12/01/2018 [place] Western Blot Serum 542573 B. BURGDORFERI, IGM WB Negative 12/01/2018 [facility] Total Antibodies With Western Blot Refle x 134010 B. BURGDORFERI, IGG/IGM 1.02 11/29/2018 [facility] Total Antibodies With Western Blot Refle x 605665 INTERPRETATION 11/29/2018 Thyroid Antibodies 555869 THYROGLOBULIN ANTIBODY . 11/29/2018 Thyroid Antibodies 103044 THYROGLOBULIN ANTIBODY <10 IU/mL 11/29/2018 Thyroid Antibodies 302523 THYROID PEROXIDASE (TPO) AB . 11/29/2018 Thyroid Antibodies 507754 THYROID PEROXIDASE (TPO) AB 14 IU/mL 11/29/2018 [...] 30.4 pg 11/28/2018 Cbc With Differential Ord2 [place]% 12.6 % 11/28/2018 Cbc With Differential Ord2 [...] 3.25 K/ul 11/28/2018 Cbc With Differential Ord2 [place] ABS# 1.5 K/ul 11/28/2018 Cbc With Differential Ord2 Eos ABS# 0.1 K/ul 11/28/2018 Cbc With Differential Ord2 Baso ABS# 0.0 K/ul 11/28/2018 Free T4 Vrv157 FREE T4 0.63 ng/dL 11/28/2018 %Hba1C Ecz067 % HbA1c 01186-2 4.7 % 11/28/2018 %Hba1C Nso[address] 88 mg/dL 11/28/2018 [place] Lmf928 MONO Negative 11/28/2018 C-Reactive Protein Qnt Crqnt [...] 1995 Constitutional general appearance Overall: well developed 11/24/2018 [...] - General 1995 Ears/Nose/Throat otoscopic exam Overall: external auditory canals clear 11/24/2018 None Full Exam - General 1995 Ears/Nose/Throat oral cavity/pharynx/larynx Overall: oral mucosa clear [...] 1: 122/64 Code: 8480-6 BMI: 29.4 Code: 94081-6 Heart Rate 1: 85 bpm Height: 5'7" [...] Headache[ICD10: R51] [facility] CPT-4: 27133 11/24/2018 Plan of Care Planned Activity Notes C odes Status Date Visit Plan: Nipple discharge, fatig ue, malaise, increasing migraines - will check labs and samples of nipple discharge - will treat as indicated - pt is to notify clinic with any changes, questions, or concerns. 11/24/2018 Appointment: Leyla Longoria [facility]Ptel[facility] [facility] 11/24/2018 Patient Education: Patient Medication Summary Completed 11/24/2018 Instructions Comment . Nipple discharge, fatigue, malaise, increasing migraines - will check labs and samples of nipple discharge - will treat as indicated - pt is to notify clinic with any changes, questions, or concerns.
--- OUTSIDE RECORDS SUMMARY | 2019-12-14 02:10 | XMS REPORT | CCD ---
Author Author Eliana Longoria Organization Annmarie Balderas MD, [facility] Address [address] [place] [address] Phone Care Team Providers Care Film Numberer Name Role Phone PP Unavailable CCM Unavailable Summary Purpose Interface Exchange Insurance Providers Payer name Policy type / Coverage type Covered libertarian ID Effective Begin Date Effective End Date AETNA Commercial Insurance [id number] Unknown Family history Father Diagnosis Age At Onset Depression Unknown Asthma Unknown Hypertension Unknown Hyperlipidemia Unknown Social History Social History Element Codes Description Effective Dates Marital status Unknown S kayley 11/24/2018 Number of children Unknown 0 11/24/[address]: 105238784 Never smoker 11/24/2018 Alcohol history Unknown occasionally drinks alcohol 11/24/2018 Frequency of drinks SNOMED CT: 274985899 1-4 drinks per week 11/24/2018 Allergies, Adverse Reactions, Alerts Substance Reaction Codes Entered Date Inactivated Date Status zithromax RxNorm: 787017 11/24/2018 No Inactive Date Active Past Medical History Illness Codes Condition Status Onset Date Resolved Date Elevated C-reactive protein (CRP) ICD-9: 790.95 ICD-10: R79.82 Active 12/02/2018 Unknown Monocytosis (symptom atic) ICD-9: 288.63 ICD-10: D72.821 Active 12/07/2018 Unknown Other elevated white blood cell count [...] (CRP) ICD-9: 790.95 ICD-10: R79.82 12/02/2018 Active Monocytosis (symptom atic) ICD-9: 288.63 ICD-10: D72.821 12/07/2018 Active Other elevated white blood cell count ICD-9: 288.69 ICD-10: D72.828 12/07/2018 Active Other fatigue ICD-9: 780.79 ICD-10: R53.83 11/24/2018 Active Other malaise ICD-9: 780.79 ICD-10: R53.81 11/24/2018 Active Headache ICD-9: 784.0 ICD-10: R51 11/24/2018 Active Nipple discharge ICD-9: 611.79 ICD-10: N64.52 11/24/2018 Active Medications Medication Codes Instruc tions Start Date Stop Date Sta tus Fill Instructions doxycycline hyclate 100 mg capsule RxNorm: 8204162 1 Capsule(s) PO BID 12/02/2018 12/15/2018 Ac tive doxycycline hyclate 100 mg capsule RxNorm: 9598779 1 Capsule(s) PO BID 12/02/2018 12/01/2018 In active fluoxetine 60 mg tablet RxNorm: 7540230 1 Tablet(s) PO daily 11/24/2018 12/23/2018 Active Forfivo XL 450 mg ta blet,extended release RxNorm: 0899729 1 Tablet(s) PO daily No Start Date Active Medication Administered No Medication Administered data Immunizations No Immunization data Assessments Condition Codes Effectiv e Dates Elevated C-reactive protein (CRP) IC D-10: R79.82 ICD-9: 790.95 12/07/2018 Monocytosis (symptomatic) ICD-10: D7 2.821 ICD-9: 288.63 12/07/2018 Other elevated white blood cell count [...] Code Result Date Ehrlichia Chaffeensis Antibody Igg 746670 EHRLICHIA CHAFFEENSIS IGG <1:64 12/06/2018 Ehrlichia Chaffeensis Antibody Igm 911589 EHRLICHIA CHAFFEENSIS IGM < 1:16 12/06/2018 [place] Spotted Fever Igg/Igm 18859 3 SRIDEVI MT SPOTTED FEVER IGM EIA . 12/06/2018 [place] Spotted Fever Igg/Igm 33688 3 RMSF, IGM <1:64 12/06/2018 [place] Spotted Fever Igg/Igm 18199 3 SRIDEVI MT SPOTTED FEVER IGG . 12/06/2018 [place] Spotted Fever Igg/Igm 21519 3 RMSF, IGG SCREEN-FLEX <1:64 12/06/2018 Kaitlin [id number] KAITLIN (FANNIE) S CREEN NONE DETECTED 019 Ra Factor Yzg822 RA FACT OR <10 IU/ml 12/02/2018 [place] Western Blot Serum 453884 B. BURGDORFERI, IGG WB Negative 12/01/2018 [place] Western Blot Serum 962056 B. BURGDORFERI, IGM WB Negative 12/01/2018 [facility] Disease Total Antibodies With Western Blot Refle x 373199 B. BURGDORFERI, IGG/IGM 1.02 11/29/2018 [facility] Disease Total Antibodies With Western Blot Refle x 122932 INTERPRETATION 11/29/2018 Thyroid Antibodies 042074 THYROGLOBULIN ANTIBODY . 11/29/2018 Thyroid Antibodies 734737 THYROGLOBULIN ANTIBODY <10 IU/mL 11/29/2018 Thyroid Antibodies 126879 THYROID PEROXIDASE (TPO) AB . 11/29/2018 Thyroid Antibodies 899119 THYROID PEROXIDASE (TPO) AB 14 IU/mL 11/29/2018 [...] 30.4 pg 11/28/2018 Cbc With Differential Ord2 [place]% 12.6 % 11/28/2018 Cbc With Differential Ord2 [...] 3.25 K/ul 11/28/2018 Cbc With Differential Ord2 [place] ABS# 1.5 K/ul 11/28/2018 Cbc With Differential Ord2 Eos ABS# 0.1 K/ul 11/28/2018 Cbc With Differential Ord2 Baso ABS# 0.0 K/ul 11/28/2018 Free T4 Juh375 FREE T4 0.63 ng/dL 11/28/2018 %Hba1C Qua419 % HbA1c 92533-6 4.7 % 11/28/2018 %Hba1C Liz[address] Gluc Ave 88 mg/dL 11/28/2018 [place] Cok377 MONO Negative 11/28/2018 C-Reactive Protein Qnt Crqnt [...] 1: 120/72 Code: 8480-6 BMI: 29.9 Code: 40930-5 Heart Rate 1: 104 bpm Height: 5'7" SpO2: 98% Weight: 191 lbs 11/24/2018 Blood Pressure 1: 122/64 Code: 8480-6 BMI: 29.4 Code: 38887-3 Heart Rate 1: 85 bpm Height: 5'7" [...] Encounters Encounter Performer Loca tion Codes Date (36348) 16002 EST. P ATIENT, LEVEL IV Diagnosis: Elevated C-reactive protein (CRP)[ICD10: R79.82] Diagnosis: Monocytosis (symptomatic)[ICD10: D72.821] Diagnosis: Other elevated white blood cell count[ICD10: D72.828] Annmarie Balderas MD, [facility] CPT-4: 42450 12/07/2018 OFFICE VISIT, NEW - LEVEL 4 Diagnosis: Nipple discharge[ICD10: N64.52] Diagnosis: Other fatigue[ICD10: R53.83] Diagnosis: Other malaise[ICD10: R53.81] Diagnosis: Headache[ICD10: R51] Leyla Balderas MD, [facility] CPT-4: 91547 11/24/2018 Plan of Care Planned Activity Notes C odes Status Date Visit Plan: Elevated Monocytosis, L eukocytosis - [...] at this time - advised exercise. 12/07/2018 Patient Education: Patient Medication Summary Completed 12/07/2018 Patient Education: Patient Medication Summary Completed 12/02/2018 Visit Plan: Nipple discharge, fatig ue, malaise, increasing migraines - will check labs and samples of nipple discharge - will treat as indicated - pt is to notify clinic with any changes, questions, or concerns. 11/24/2018 Appointment: Leyla Longoria WPtel: [facility] [place] New Patient 11/24/2018 Patient Education: Patient [...]
--- OUTSIDE RECORDS SUMMARY | 2019-12-14 02:10 | XMS REPORT | CCD ---
Author Author Eliana Longoria Organization Annmarie Balderas MD, [facility] Address [address] [place] [address] Phone Care Team Providers Care Chief Lifestyle Officer Name Role Phone PP Unavailable CCM Unavailable Summary Purpose Interface Exchange Insurance Providers Payer name Policy type / Coverage type Covered libertarian ID Effective Begin Date Effective End Date AETNA Commercial Insurance [id number] Unknown Family history Father Diagnosis Age At Onset Depression Unknown Asthma Unknown Hypertension Unknown Hyperlipidemia Unknown Social History Social History Element Codes Description Effective Dates Marital status Unknown S kayley 11/24/2018 Number of children Unknown 0 11/24/[address]: 812692262 Never smoker 11/24/2018 Alcohol history Unknown occasionally drinks alcohol 11/24/2018 Frequency of drinks SNOMED CT: 188228462 1-4 drinks per week 11/24/2018 Allergies, Adverse Reactions, Alerts Substance Reaction Codes Entered Date Inactivated Date Status zithromax RxNorm: 454595 11/24/2018 No Inactive Date Active PAST MEDICAL HISTORY No Past Medical History data Problems No Problems data Medications Medication Codes Instruc tions Start Date Stop Date Sta tus Fill Instructions fluoxetine 60 mg tablet RxNorm: 6602354 1 Tablet(s) PO daily 11/24/2018 12/23/2018 Active Forfivo XL 450 mg ta blet,extended release RxNorm: 2437274 1 Tablet(s) PO daily No Start Date Active Medication Administered No Medication Administered data Immunizations No Immunization data Assessments No Assessment data Reason For Visit No Reason For Visit data Results Observation Observation Code Item Item Code Result Date [facility] 11/28/2018 Cbc With Differential Ord2 [...] 30.4 pg 11/28/2018 Cbc With Differential Ord2 [place]% 12.6 % 11/28/2018 Cbc With Differential Ord2 [...] 3.25 K/ul 11/28/2018 Cbc With Differential Ord2 [place] ABS# 1.5 K/ul 11/28/2018 Cbc With Differential Ord2 Eos ABS# 0.1 K/ul 11/28/2018 Cbc With Differential Ord2 Baso ABS# 0.0 K/ul 11/28/2018 [place] Qkt305 MONO Negative 11/28/2018 Review of Systems No Review of Systems data Physical Exam No Physical Exam data Procedures No Procedures data Vital Signs No Vital signs data Functional Status No Functional Status data History of Present Illness No History of Present Illness data Advance Directives No Advance Directive data Encounters No Encounter data Plan of Care Planned Activity Notes C odes Status Date Appointment: Leyla Longoria WPtel: [address] [place], [place] [id number] New Patient 11/24/2018 Instructions No Instructions
--- OUTSIDE RECORDS SUMMARY | 2019-12-14 02:11 | XMS REPORT | Continuity of Care Document ---
Author Organization Unknown Address Unknown Phone Unavailable Allergies Active Description Code Type Severity Reaction Onset Reported/Identified Relationship to Patient Clinical Status Yes azithromycin [id number] Drug Allergy Unknown N/A 09/11/2018 Yes No Known Drug Allergies [id number] Drug Allergy Unknown N/A 09/11/2018 Medications There is no data. Problems Date Dx Coded Attending Type Code Diagnosis Diagnosed By 09/11/2018 PATRICIA NO RESTAURANT AND BAR MANAGER Ot F10.10 ALCOHOL ABUSE, UNCOMPLICATED 09/11/2018 ONEAL, PATRICIA RESTAURANT AND BAR MANAGER Ot F32.9 MAJOR DEPRESSIVE DISORDER, SINGLE EPISOD 09/11/2018 ONEAL, PATRICIA RESTAURANT AND BAR MANAGER Ot F41.9 ANXIETY DISORDER, UNSPECIFIED 09/11/2018 ONEAL, PATRICIA RESTAURANT AND BAR MANAGER Ot S01.81XA LACERATION W/O FOREIGN BODY OF OTH PART 09/11/2018 ONEAL, PATRICIA RESTAURANT AND BAR MANAGER Ot S09.90XA UNSPECIFIED INJURY OF HEAD, INITIAL ENCO 09/11/2018 ONEAL, PATRICIA RESTAURANT AND BAR MANAGER Ot W22.01XA WALKED INTO WALL, INITIAL ENCOUNTER 09/11/2018 ONEAL, PATRICIA RESTAURANT AND BAR MANAGER Ot Z88.0 ALLERGY STATUS TO PENICILLIN 09/13/2018 ONEAL, PATRICIA RESTAURANT AND BAR MANAGER Ot F10.10 ALCOHOL ABUSE, UNCOMPLICATED 09/13/2018 ONEAL, PATRICIA RESTAURANT AND BAR MANAGER Ot F32.9 MAJOR DEPRESSIVE DISORDER, SINGLE EPISOD 09/13/2018 ONEAL, PATRICIA RESTAURANT AND BAR MANAGER Ot F41.9 ANXIETY DISORDER, UNSPECIFIED 09/13/2018 ONEAL, PATRICIA RESTAURANT AND BAR MANAGER Ot S01.81XA LACERATION W/O FOREIGN BODY OF OTH PART 09/13/2018 ONEAL, PATRICIA RESTAURANT AND BAR MANAGER Ot S09.90XA UNSPECIFIED INJURY OF HEAD, INITIAL ENCO 09/13/2018 ONEAL, PATRICIA RESTAURANT AND BAR MANAGER Ot W22.01XA WALKED INTO WALL, INITIAL ENCOUNTER 09/13/2018 ONEAL, PATRICIA RESTAURANT AND BAR MANAGER Ot Z88.0 ALLERGY STATUS TO PENICILLIN 12/20/2018 CA CAPONE APRN Ot R10.10 UPPER ABDOMINAL PAIN, UNSPECIFIED 12/20/2018 CA CAPONE HOUSE CARPENTER HELPER Ot R11.2 NAUSEA WITH VOMITING, UNSPECIFIED 12/20/2018 CA CAPONE HOUSE CARPENTER HELPER Ot R19.7 DIARRHEA, UNSPECIFIED 12/20/2018 CA CAPONE HOUSE CARPENTER HELPER Ot R53.1 WEAKNESS 12/20/2018 CA CAPONE HOUSE CARPENTER HELPER Ot R53.83 OTHER FATIGUE 12/20/2018 CA CAPONE HOUSE CARPENTER HELPER Ot Z97.5 PRESENCE OF (INTRAUTERINE) CONTRACEPTIVE 01/05/2019 CA CAPONE HOUSE CARPENTER HELPER Ot G43.909 MIGRAINE, UNSP, NOT INTRACTABLE, WITHOUT 01/05/2019 CA CAPONE HOUSE CARPENTER HELPER Ot H53.8 OTHER VISUAL DISTURBANCES 01/10/2019 CA CAPONE HOUSE CARPENTER HELPER Ot R10.10 UPPER ABDOMINAL PAIN, UNSPECIFIED 01/10/2019 CA CAPONE HOUSE CARPENTER HELPER Ot R11.2 NAUSEA WITH VOMITING, UNSPECIFIED 01/10/2019 CA CAPONE HOUSE CARPENTER HELPER Ot R19.7 DIARRHEA, UNSPECIFIED 01/10/2019 CA CAPONE HOUSE CARPENTER HELPER Ot R53.1 WEAKNESS 01/10/2019 CA CAPONE HOUSE CARPENTER HELPER Ot R53.83 OTHER FATIGUE 01/10/2019 CA CAPONE HOUSE CARPENTER HELPER Ot Z97.5 PRESENCE OF (INTRAUTERINE) CONTRACEPTIVE 03/28/2019 CA CAPONE HOUSE CARPENTER HELPER Ot G43.909 MIGRAINE, UNSP, NOT INTRACTABLE, WITHOUT 03/28/2019 CA CAPONE HOUSE CARPENTER HELPER Ot H53.8 OTHER VISUAL DISTURBANCES 03/28/2019 CA CAPONE HOUSE CARPENTER HELPER Ot R10.10 UPPER ABDOMINAL PAIN, UNSPECIFIED 03/28/2019 CA CAPONE HOUSE CARPENTER HELPER Ot R11.2 NAUSEA WITH VOMITING, UNSPECIFIED 03/28/2019 CA CAPONE HOUSE CARPENTER HELPER Ot R19.7 DIARRHEA, UNSPECIFIED 03/28/2019 CA CAPONE HOUSE CARPENTER HELPER Ot R53.1 WEAKNESS 03/28/2019 CA CAPONE HOUSE CARPENTER HELPER Ot R53.83 OTHER FATIGUE 03/28/2019 CA CAPONE HOUSE CARPENTER HELPER Ot Z97.5 PRESENCE OF (INTRAUTERINE) CONTRACEPTIVE 12/05/2019 CA CAPONE HOUSE CARPENTER HELPER Ot G43.909 MIGRAINE, UNSP, NOT INTRACTABLE, WITHOUT 12/05/2019 CA CAPONE HOUSE CARPENTER HELPER Ot H53.8 OTHER VISUAL DISTURBANCES 12/05/2019 CA CAPONE HOUSE CARPENTER HELPER Ot R10.10 UPPER ABDOMINAL PAIN, UNSPECIFIED 12/05/2019 CA CAPONE HOUSE CARPENTER HELPER Ot R11.2 NAUSEA WITH VOMITING, UNSPECIFIED 12/05/2019 CA CAPONE HOUSE CARPENTER HELPER Ot R19.7 DIARRHEA, UNSPECIFIED 12/05/2019 CA CAPONE HOUSE CARPENTER HELPER Ot R53.1 WEAKNESS 12/05/2019 CA CAPONE HOUSE CARPENTER HELPER Ot R53.83 OTHER FATIGUE 12/05/2019 CA CAPONE HOUSE CARPENTER HELPER Ot Z97.5 PRESENCE OF (INTRAUTERINE) CONTRACEPTIVE 12/05/2019 CA CAPONE HOUSE CARPENTER HELPER Ot G43.909 MIGRAINE, UNSP, NOT INTRACTABLE, WITHOUT 12/05/2019 LIBORIO CA Mae HOUSE CARPENTER HELPER Ot H53.8 OTHER VISUAL DISTURBANCES 12/05/2019 LIBORIOCA HOUSE CARPENTER HELPER Ot R10.10 UPPER ABDOMINAL PAIN, UNSPECIFIED 12/05/2019 CA CAPONE HOUSE CARPENTER HELPER Ot R11.2 NAUSEA WITH VOMITING, UNSPECIFIED 12/05/2019 LIBORIO CA Mae HOUSE CARPENTER HELPER Ot R19.7 DIARRHEA, UNSPECIFIED 12/05/2019 LIBORIOCA HOUSE CARPENTER HELPER Ot R53.1 WEAKNESS 12/05/2019 LIBORIOCA HOUSE CARPENTER HELPER Ot R53.83 OTHER FATIGUE 12/05/2019 CA CAPONE HOUSE CARPENTER HELPER Ot Z97.5 PRESENCE OF (INTRAUTERINE) CONTRACEPTIVE Procedures There is no data. Results Test Result Range Complete blood count (CBC) with automate d white blood cell (WBC) differential - 12/05/19 04:39 Blood leukocytes automated count (number/volume) 6.8 10*3/uL 4.3-11.0 Blood erythrocytes automated count (number/volume) 4.74 10*6/uL 4.35-5.85 Venous blood hemoglobin measurement (mass/volume) 14.1 g/dL 11.5-16.0 Blood hematocrit (volume fraction) 43 % 35-52 Automated erythrocyte mean corpuscular volume 92 [ foz_us] 80-99 Automated erythrocyte mean corpuscular h emoglobin (mass per erythrocyte) 30 pg 25-34 Automated erythrocyte mean corpuscular h emoglobin concentration measurement (mass/volume) 33 g/dL 32-36 Automated erythrocyte distribution width ratio 14. 0 % 10.0- 14.5 Automated blood platelet count (count/volume) 294 10*3/uL 130-400 Automated blood platelet mean volume measurement 9.2 [foz_us] 7.4-10.4 Automated blood neutrophils/100 leukocytes 67 % 42-75 Automated blood lymphocytes/100 leukocytes 17 % 12-44 Blood monocytes/100 leukocytes 16 % 0-12 Automated blood eosinophils/100 leukocytes 0 % 0-10 Automated blood basophils/100 leukocytes 0 % 0-10 Blood neutrophils automated count (number/volume) 4.6 10*3 1.8-7.8 Blood lymphocytes automated count (number/volume) 1.1 10*3 1.0-4.0 Blood monocytes automated count (number/volume) 1. 1 10*3 0.0-1.0 Automated eosinophil count 0.0 10*3/uL 0 .0-0.3 Automated blood basophil count (count/volume) 0.0 10*3/uL 0.0-0.1 PT panel in platelet poor plasma by coag ulation assay - 12/05/19 04:39 Prothrombin time (PT) in platelet poor plasma by coagu lation assay 13.5 s 12.2-14.7 INR in platelet poor plasma or blood by coagulation as say 1.0 0.8-1.4 Activated partial thromboplastin time (a PTT) in platelet poor plasma bycoagulation assay - 12/05/19 04:39 Activated partial thromboplastin time (a PTT) in platelet poor plasma bycoagulation assay 33 s 24-35 Comprehensive metabolic panel - 12/05/19 04:39 Serum or plasma sodium measurement (moles/volume) 135 mmol/L 135-145 Serum or plasma potassium measurement (moles/volume) 3.9 mmol/L 3.6-5.0 Serum or plasma chloride measurement (moles/volume) 105 mmol/L 98-107 Carbon dioxide 20 mmol/L 21-32 Serum or plasma anion gap determination (moles/volume) 10 mmol/L 5-14 Serum or plasma urea nitrogen measurement (mass/volume ) 9 mg/dL 7-18 Serum or plasma creatinine measurement (mass/volume) 0.83 mg/dL 0.60-1.30 Serum or plasma urea nitrogen/creatinine mass ratio 11 NRG Serum or plasma creatinine measurement w ith calculation of estimated glomerular filtration rate > NRG Serum or plasma glucose measurement (mass/volume) 101 mg/dL 70-105 Serum or plasma calcium measurement (mass/volume) 9.0 mg/dL 8.5-10.1 Serum or plasma total bilirubin measurement (mass/volu me) 0.2 mg/dL 0.1-1.0 Serum or plasma alkaline phosphatase corin surement (enzymatic activity/volume) 96 U/L 40-136 Serum or plasma aspartate aminotransfera se measurement (enzymatic activity/volume) 31 U/L 5-34 Serum or plasma alanine aminotransferase measurement (enzymatic activity/volume) 29 U/L 0-55 Serum or plasma protein measurement (mass/volume) 7.1 g/dL 6.4-8.2 Serum or plasma albumin measurement (mass/volume) 4.1 g/dL 3.2-4.5 CALCIUM CORRECTED 8.9 mg/dL 8.5-10.1 Encounters ACCT No. Visit Date/Time Discharge Status Pt. Type Provider Facility Loc./Unit Complaint [id number] 10/27/2019 11:16:40 10/27/2019 23:59: 59 CLS Outpatient Brian Carlos [id number] 11/16/2018 11:02:14 11/16/2018 23:59: 59 CLS Outpatient Jessica Chakraborty [id number] 10/11/2018 14:04:50 10/11/2018 23:59: 59 CLS Outpatient Jesscia Chakraborty [id number] 07/22/2018 11:19:41 07/22/2018 23:59: 59 CLS Outpatient Jessica Chakraborty [id number] 12/03/2017 12:03:14 12/03/2017 23:59: 59 CLS Outpatient Jessica Chakraborty [id number] 10/13/2016 16:44:33 10/13/2016 23:59: 59 CLS Outpatient Jessica Chakraborty [id number] 09/08/2016 17:57:41 09/08/2016 23:59: 59 CLS Outpatient Douglas Huang [id number] 09/08/2016 17:10:13 09/08/2016 23:59: 59 CLS Outpatient Douglas Huang [id number] 05/27/2016 17:15:45 05/27/2016 23:59: 59 CLS Outpatient Rupal Michel [id number] 05/15/2016 11:27:07 05/15/2016 23:59: 59 CLS Outpatient Rupal Michel [id number] 04/30/2016 14:04:17 04/30/2016 23:59: 59 CLS Outpatient Rupal Michel [id number] 11/06/2015 17:32:50 11/06/2015 23:59: 59 CLS Outpatient Douglas Huang [id number] 10/23/2015 17:09:55 10/23/2015 23:59: 59 CLS Outpatient Douglas Huang [id number] 08/26/2015 17:22:01 08/26/2015 23:59: 59 CLS Outpatient Douglas Huang [id number] 08/15/2015 11:31:59 08/15/2015 23:59: 59 CLS Outpatient RADHA TURNER [id number] 08/12/2015 16:14:15 08/12/2015 23:59: 59 CLS Outpatient RADHA TURNER [id number] 08/09/2015 17:01:04 08/09/2015 23:59: 59 CLS Outpatient Douglas Huang [id number] 08/09/2015 15:57:18 08/09/2015 23:59: 59 CLS Outpatient Douglas Huang [id number] 07/10/2015 15:33:16 07/10/2015 23:59: 59 CLS Outpatient RADHA TURNER [id number] 06/24/2015 16:48:59 06/24/2015 23:59: 59 CLS Outpatient Jessica Chakrbaorty [id number] 06/03/2015 21:59:14 06/03/2015 23:59: 59 CLS Outpatient RADHA TURNER [id number] 01/25/2015 10:01:01 01/25/2015 23:59: 59 CLS Outpatient RADHA TURNER [id number] 12/05/2019 04:20:00 020 05:30:00 DIS Emergency MARY GRACE GAN, KENNETH Barton [facility] ER COUGH UP BLOOD, POSS FLU [id number] 12/19/2018 09:12:00 019 23:59:59 CLS Outpatient CA CAPONE APRN [facility] RAD ABDOMINAL PAIN [id number] 12/14/2018 12:22:00 019 23:59:59 CLS Outpatient CA CAPONE APRN [facility] RAD SEVERITY INCREASED F REQUENCY OF MIGRAINES [id number] 09/11/2018 10:03:00 018 12:33:00 DIS Emergency PATRICIA NO [facility] ER LACERATION FOREHEAD
== END 2019-12-05 05:30 | disposition home or self-care (01) ==
LOC: EDUNIT# 04:17 → ER 04:20
DX: R09.89 Other specified symptoms and signs involving the circulatory and respiratory systems (principal); R04.2 Hemoptysis; Z88.1 Allergy status to other antibiotic agents
CPT/HCPCS: 36415; 71046; 80053; 85025; 85610; 85730; 96374